=== PATIENT | female | born 1955 | race American Indian/Alaskan Native ===

== ENCOUNTER 2018-01-26 16:44 | Inpatient (IN) | payer MEDICARE ==
[2018-01-25 17:01] VITALS: PULSE 144; BMI 22.7
--- NOTE | 2018-01-26 16:59 | CP.PCM.CON ---
Addendum entered and electronically signed by Brionna Raphael DO 01/26/18 18:21 : Patient was g[place]me[place] [facility] - will folllow up the studies. Original Note: <Brionna Raphael - Last Filed: 01/26/18 17:47> History of Present Illness - History of Present Illness History of Present Illness: Critical Care Consult Note 62 year old female with PMHx of A-fib on warfarin, severe PAD, ESRD/anuric (HD TTS; L AVF; last dialysis Tuesday), hypothyroidism, Multiple Myeloma S/P chemotherapy and radiation therapy, left hallux infected ulcer with osteomyelitis with Serratia growing (01/16) and was put on Cefepime to complete 4- 6 weeks (discharged 01/20), she was admitted 01/25 with hemorrhagic shock and septic shock, given 3u PRBC, and 2U FFP, 2L bolus, s/p EGD 01/26 which showed ulcers, no active bleeding. Patient transferred to [facility] for further care and for dialysis. Currently the patient is on Levophed 8mcg/min. PMHx: A-fib on warfarin, severe PAD, ESRD/anuric (HD TTS; last dialysis ??), hypothyroidism, Multiple Myeloma S/P chemotherapy and radiation therapy, left hallux infected ulcer with osteomyelitis PSHx: portacath placement, L AV fistula, thoracic back surgery, cholecystectomy Allergies: IV contrast Social: Denies tobacco, alcohol, drugs Family Hx: denies PMD: Dr. Feng Custodial Engineer: Dr. Koenig Past Patient History - Infectious Disease Hx of Infectious Diseases: None - Past Social History Smoking Status: Never Smoked - CARDIAC Hx Atrial Fibrillation: Yes Hx Pacemaker: No Hx Peripheral Edema: Yes (ble +1 pitting dry leathery skin) Hx Peripheral Vascular Disease: Yes Other/Comment: left foot cool to touch - PULMONARY Other/Comment: pt had sleep study and was dx with sleep apnea by dr ding, could not tolerate cpap at home needs to follow up with dr ding but has not been feeling well - NEUROLOGICAL Hx Neurological Disorder: No - RENAL Date of Last Dialysis Treatment: 01/24/18 Hx Renal Failure: Yes - ENDOCRINE/METABOLIC Hx Endocrine Disorders: No - HEMATOLOGICAL/ONCOLOGICAL Hx Cancer: Yes Other/Comment: myeloma, osteomyelitis - INTEGUMENTARY Hx Dermatological Problems: Yes Other/Comment: ble discolored +1 pitting edema leathery skin, generalized dry flakey skin over body, dry skin to buttocks no openings, left foot toes ardry flakey skin both feete dry hard 1/2 nail missing from great toe, closed blister to top of foot, ischemic ulceration to left foot, painful, dry skin and toes r ft - MUSCULOSKELETAL/RHEUMATOLOGICAL Hx Falls: No - GASTROINTESTINAL Hx Gastrointestinal Disorders: Yes (weight loss poor appetite) - GENITOURINARY/GYNECOLOGICAL Hx Genitourinary Disorders: Yes (gangrenous cystitis) - PSYCHIATRIC Hx Anxiety: Yes Hx Emotional Abuse: No Hx Physical Abuse: No Hx Substance Use: No - SURGICAL HISTORY Hx Cholecystectomy: Yes (2007) Other/Comment: left arm av fistula, r arm port in and out post chemo when dx with multiple myeloma, angiogram rle 12/27/17 dr dilan lainez, fistulagram - ANESTHESIA Hx Anesthesia Reactions: Yes (HIGH TOLERANCE) Hx Malignant Hyperthermia: No Meds Allergies/Adverse Reactions: Allergies Allergy/AdvReac Type Severity Reaction Status Date / Time IV CONTRAST Allergy RASH Uncoded 01/16/18 07:23 Physical Exam - Constitutional Appears: Chronically Ill - Head Exam Head Exam: ATRAUMATIC, NORMAL INSPECTION, NORMOCEPHALIC - Eye Exam Eye Exam: EOMI, Normal appearance, PERRL Pupil Exam: NORMAL ACCOMODATION - ENT Exam ENT Exam: Mucous Membranes Dry - Respiratory Exam Respiratory Exam: Decreased Breath Sounds - Cardiovascular Exam Cardiovascular Exam: Tachycardia, Irregular Rhythm - GI/Abdominal Exam GI & Abdominal Exam: Normal Bowel Sounds, Soft. absent: Distended, Tenderness - Rectal Exam Rectal Exam: Deferred - Extremities Exam Extremities exam: Positive for: pedal pulses present. Negative for: pedal edema , tenderness Additional comments: wound on LLE; L AV fistula + thrill - Back Exam Back exam: NORMAL INSPECTION - Neurological Exam Neurological exam: Alert, CN II-XII Intact, Oriented x3 - Psychiatric Exam Psychiatric exam: Normal Affect, Normal Mood - Skin Skin Exam: Dry, Intact, Normal Color, Warm Assessment & Plan - Assessment and Plan (Free Text) Assessment: 62 year old female with PMHx of A-fib on warfarin, severe PAD, ESRD/anuric (HD TTS; last dialysis Tuesday), hypothyroidism, Multiple Myeloma S/P chemotherapy and radiation therapy, left hallux infected ulcer with osteomyelitis with Serratia growing (01/16) and was put on Cefepime to complete 4-6 weeks ( discharged 01/20), she was admitted 01/25 with hemorrhagic shock and septic shock, given 3u PRBC, and 2U FFP, 2L bolus, s/p EGD 01/26 which showed ulcers, no active bleeding. Patient transferred to [facility] for further care and for dialysis. Currently the patient is on Levophed 12mcg/min. Plan: Neuro: AAO x 3 Cardio: A: Hypotensive septic versus hemorrhagic shock - Levophed 12mcg/hr A: Atrial Fib - On Warfarin - HELD - ECHO 01/17: LVEF 70%, RV volume overload, mild LVH, Severe TR, moderate pulm HTN Pulm: A: Fluid Overload - Will be placed on BiPAP after dialysis GI: A: GIB - EGD done today at [facility]. Showed non-bleeding gastric and esophageal ulcers. No overt signs of bleeding seen on EGD. Will repeat EGD in a couple of days. Patient will need a colonoscopy before d/c. - Protonix Drip Renal: A: ESRD/anuric (HD TTS; L AVF; last dialysis Tuesday) Dr. Preciado consulted - Receiving dialysis now Endo: A: Hypothyroidism ID: A: Septic/ Hemorrhagic Shock A: Left hallux infected ulcer with Osteomyelitis - Serratia growing (01/16) and was put on Cefepime to complete 4-6 weeks ( discharged 01/20) - Resumed Cepime, Flagyl, and was given Vanco x1 by ID at [facility] Heme/ Onc: A: Anemia 2/2 acute blood loss - Transfused total 3u PRBC and 2U FFP - at [facility] - Continue to monitor A: Multiple Myeloma S/P chemotherapy and radiation therapy Vascular: A: Severe PAD Prophylaxis: - Protonix Drip - SCDs, VTE c/i 2/2 Osteo, PAD, and GI Bleed - PT/OT DW Brionna Patel DO, PGY-1 <Marcella Gibbs - Last Filed: 01/27/18 13:40> Meds - Medications Medications: Current Medications Ascorbic Acid (Vitamin C 500 Mg Tab) 500 mg PO DAILY [facility] Last Admin: 01/27/18 10:32 Dose: 500 mg Calcitriol (Rocaltrol) 0.25 mcg PO DAILY [facility] Last Admin: 01/27/18 10:32 Dose: 0.25 mcg Hydromorphone HCl (Dilaudid) 0.5 mg IVP Q4H PRN PRN Reason: Pain, severe (8-10) Cefepime HCl (Maxipime Iv 1 Gm Premix) 1 gm in 50 mls @ 100 mls/hr IVPB Q24H [facility]ON PRN Reason: Protocol Last Admin: 01/27/18 10:33 Dose: 100 mls/hr Norepinephrine Bitartrate 8 mg (/ Sodium Chloride) 258 mls @ 23.22 mls/hr IV .Q11H7M PRN; Protocol; 12 MCG/MIN PRN Reason: TITRATE PER MD ORDER Last Titration: 01/27/18 12:17 Dose: 14 mcg/min, 27.09 mls/hr Midodrine (Proamatine) 5 mg PO TID [facility] Last Admin: 01/27/18 10:32 Dose: 5 mg Pantoprazole Sodium (Protonix Inj) 40 mg IVP Q12H [facility] Last Admin: 01/27/18 05:55 Dose: 40 mg Sucralfate (Carafate Oral Susp) 1 gm PO TID [facility] Last Admin: 01/27/18 10:33 Dose: 1 gm Vitamin B Complex/Vit C/Folic Acid (Nephro-Sarah) 1 tab PO 0800 [facility] Results - Vital Signs Recent Vital Signs: Last Vital Signs Temp 97.7 F 01/27/18 12:00 Pulse 103 H 01/27/18 12:00 Resp 12 01/27/18 12:00 BP 85/44 L 01/27/18 12:00 Pulse Ox 96 01/27/18 12:00 - Labs Result Diagrams: 01/27/18 06:26 01/27/18 06:27 Labs: Laboratory Results - last 24 hr 01/26/18 01/26/18 01/27/18 21:27 21:27 06:26 WBC 25.5 H 20.5 H RBC 3.12 L 3.10 L Hgb 9.4 L 9.3 L Hct 27.7 L 27.8 L MCV 88.7 89.7 MCH 30.0 30.0 MCHC 33.8 33.5 RDW 15.3 H 15.9 H Plt Count 60 L 74 L MPV 9.7 9.5 Neut % (Auto) 90.7 H 87.7 H Lymph % (Auto) 4.4 L 5.5 L [place] % (Auto) 2.5 3.2 Eos % (Auto) 1.5 2.9 Baso % (Auto) 0.9 0.7 Neut # (Auto) 23.1 H 18.0 H Lymph # (Auto) 1.1 1.1 [place] # (Auto) 0.6 0.7 Eos # (Auto) 0.4 0.6 Baso # (Auto) 0.2 0.1 Neutrophils % (Manual) 90 H 90 H Band Neutrophils % 1 Lymphocytes % (Manual) 3 L 3 L Reactive Lymphs % 1 H Monocytes % (Manual) 3 4 Eosinophils % (Manual) 3 1 Basophils % (Manual) 1 Nucleated RBC % 1 H 1 H Toxic Granulation Present Platelet Estimate Decreased L Decreased L Large Platelets Present Hypochromasia (manual) Slight Slight Poikilocytosis (manual Slight Slight Anisocytosis (manual) Slight Slight Sodium 145 Potassium 3.4 L Chloride 102 Carbon Dioxide 28 Anion Gap 18 BUN 67 H Creatinine 2.6 H Est GFR ( Amer) 22 Est GFR (Non-Af Amer) 19 Random Glucose 89 Calcium 8.1 L Phosphorus 2.1 L Magnesium 1.9 Total Bilirubin 1.1 AST 30 ALT 44 Alkaline Phosphatase 151 H D Total Protein 5.9 L Albumin 2.9 L Globulin 3.0 Albumin/Globulin Ratio 0.9 L 15/18 06:27 WBC RBC Hgb Hct MCV MCH MCHC RDW Plt Count MPV Neut % (Auto) Lymph % (Auto) [place] % (Auto) Eos % (Auto) Baso % (Auto) Neut # (Auto) Lymph # (Auto) [place] # (Auto) Eos # (Auto) Baso # (Auto) Neutrophils % (Manual) Band Neutrophils % Lymphocytes % (Manual) Reactive Lymphs % Monocytes % (Manual) Eosinophils % (Manual) Basophils % (Manual) Nucleated RBC % Toxic Granulation Platelet Estimate Large Platelets Hypochromasia (manual) Poikilocytosis (manual Anisocytosis (manual) Sodium 144 Potassium 3.9 Chloride 103 Carbon Dioxide 29 Anion Gap 16 BUN 83 H Creatinine 3.4 H Est GFR ( Amer) 17 Est GFR (Non-Af Amer) 14 Random Glucose 84 Calcium 8.2 L Phosphorus 3.1 Magnesium 1.9 Total Bilirubin 1.1 AST 32 ALT 42 Alkaline Phosphatase 137 H Total Protein 5.8 L Albumin 2.9 L Globulin 3.0 Albumin/Globulin Ratio 1.0 Assessment & Plan - Assessment and Plan (Free Text) Plan: PAtient seen and examined at bedside. patietn dx with left foot soft tissue infection (suspect s/p debridement) being transferred from [facility] with dx of pulmonary congestion s/p multiple units of blood transfusion requiring HD (not available at [facility]). -COntinue pressors to keep MAP >65 -continue broad spectrum abx, continue as per ID (add vanco and gentamycin (on high dose pressors) -h/o Gi bleed: no active bleeding -continue protonix IV -Patient remains in shock requiring norepi - Date & Time Date: 01/26/18 Time: 19:00
[2018-01-26] MEDS ORDERED: Pantoprazole 80 MG in Sodium Chloride 0.9% 100 ML IVP SCH (17:15)
[2018-01-26] MEDS: Sucralfate 1 gm/10 ml Oral Susp UD PO SCH (18:48)
[2018-01-26] MEDS ORDERED: DiphenhydrAMINE 50 mg/ml Inj IVP STA (19:04)
[2018-01-26 21:30] LABS: EOS # 0.4 K/uL (0.0-0.7); HEMOGLOBIN 9.4 g/dL (11.0-16.0); NRBC % 0.6 % (0.0-2.0)
[2018-01-26 21:35] LABS: BASO # 0.2 K/uL (0.0-0.2); BASO % 0.9 % (0.0-2.0); EOS % 1.5 % (0.0-4.0); LYMPH # 1.1 K/uL (1.0-4.3); LYMPH % 4.4 % (20.0-40.0); MEAN CELL VOLUME 88.7 fL (81.0-99.0); MEAN CORPUSCULAR HGB CONC 33.8 g/dL (33.0-37.0); MEAN PLATELET VOLUME 9.7 fL (7.2-11.7); MONO # 0.6 K/uL (0.0-0.8); MONO % 2.5 % (0.0-10.0); NEUT # 23.1 K/uL (1.8-7.0); NEUT % 90.7 % (50.0-75.0); RBC 3.12 Mil/uL (3.80-5.20); RED CELL DISTRIBUTION WIDTH 15.3 % (11.5-14.5); WHITE BLOOD COUNT 25.5 K/uL (4.8-10.8)
[2018-01-26 21:37] LABS: PLATELET COUNT 60 K/uL (130-400)
[2018-01-26 21:43] LABS: ALB/GLOB RATIO 0.9 (1.0-2.1); ALBUMIN 2.9 g/dL (3.5-5.0); CALCIUM 8.1 mg/dl (8.6-10.4)
[2018-01-26] MEDS: metroNIDAZOLE IV 500 mg/100 ml 500 MG/100 ML BAG IVPB SCH (21:45)
[2018-01-26 21:52] LABS: ANISOCYTOSIS SLIGHT; EOSINOPHIL 3 % (0-4); HYPOCHROMIC SLIGHT; LARGE PLATELETS PRESENT; LYMPHOCYTE 3 % (20-40); MONOCYTE 3 % (0-10); NEUTROPHIL 90 % (50-75); NUCLEATED RED BLOOD CELL 1 % (0-0); PLATELET ESTIMATE DECREASED (NORMAL); POIKILOCYTOSIS SLIGHT; REACTIVE LYMPHOCYTES 1 % (0-0); TOTAL CELLS COUNTED 100
[2018-01-26] MEDS ORDERED: HYDROmorphone 0.5 mg/0.5 ml ISec IVP STA (23:43)
--- NOTE | 2018-01-27 04:32 | CON ---
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 The patient just discharged last week to [facility] after being found to have left hallux osteomyelitis. The patient had been mildly hypotensive during that admission as well and was placed on Midodrine. The patient reports not eating well lately; not able to give thorough history as she is very lethargic. The patient in [place] was admitted initially to ICU, given 3 units of PRBC, 3 units of FFP, 2 liters of normal saline bolus, and put on Levophed drip, currently running at 12 mcg to stabilize her. The patient also had urgent EGD done this morning which shows nonbleeding esophageal and gastric ulcers. PAST MEDICAL HISTORY: As above. SOCIAL HISTORY: Denies tobacco use. FAMILY HISTORY: Denies per record. REVIEW OF SYSTEMS: Limited as the patient is lethargic; HEENT: Reports some difficulty swallowing. CONSTITUTIONAL: Not eating much lately. RESPIRATORY: Previously prescribed CPAP but has not been adherent to it, unable to tolerate it reportedly. CARDIOVASCULAR: AFib with RVR on previous admission, placed on verapamil as well as Midodrine to maintain blood pressure. GI: As per HPI. : Anuric. MUSCULOSKELETAL: Denies any aches or pains. SKIN: Soft tissue. EXTREMITIES: The patient with left foot osteomyelitis, currently on 4 to 6 weeks of IV antibiotics. PHYSICAL EXAMINATION: VITAL SIGNS: This evening, blood pressure 197/52, heart rate 104, respirations 12, temperature 97.5, O2 saturation 96% on 3 liters O2 via nasal cannula. GENERAL: No distress, but lethargic. HEENT: Moist mucous membranes, nonicteric. RESPIRATORY: Extensive bilateral inspiratory rales. No respiratory distress. CARDIOVASCULAR: S1 and S2 normal. No murmurs, no gallops, no rubs. GI: Abdomen soft, nontender, nondistended. : No bladder distention. EXTREMITIES: 1+ bilateral lower leg edema. SKIN: Warm. No cyanosis. NEURO: No resting tremor. PSYCHIATRIC: Not agitated. LABORATORY DATA: This morning CBC; WBC 25.7, hemoglobin 9.8 improved from 7.6 earlier in the morning, hematocrit 29.3, platelets 100. Chemistry panel; sodium 144, potassium 4.7, chloride 104, bicarb 24, BUN 127, creatinine 4.6, glucose 93, calcium 7.9, AST 25, ALT 40, albumin 2.3. ProBNP 138,000. ABG this morning, pH 7.22, PCO2 62. Chest x-ray showing bilateral haziness. ASSESSMENT AND PLAN: 1. End stage renal disease on hemodialysis, relatively stable electrolyte status; however, appears volume overloaded by chest x-ray despite being hypotensive and on Levophed; we will dialyze for both clearance and ultrafiltration. 2. Congestive heart failure exacerbation, acute decompensated congestive heart failure; the patient with normal systolic function on previous echo done this last week but showed right ventricular volume overload; question about patient being in cardiogenic shock, although left ventricular function was normal, recommend cardiology eval. -Attempting ultrafiltration carefully with goal of 1.5 liters over 3 hours. 3. Shock, likely septic shock but RV volume overload recently as mentioned above; -we will recommend to continue on Levophed, to be titrated upward as needed to allow for UF on HD. 4. Acute Hypoxemic resp failure - Stable FIO2 requirement, see above; Critical care time > 35 minutes Agustín Preciado MD MTDD
[2018-01-27] MEDS: metroNIDAZOLE IV 500 mg/100 ml 500 MG/100 ML BAG IVPB SCH (05:55)
[2018-01-27 06:32] LABS: BASO # 0.1 K/uL (0.0-0.2); BASO % 0.7 % (0.0-2.0); EOS # 0.6 K/uL (0.0-0.7); EOS % 2.9 % (0.0-4.0); HEMOGLOBIN 9.3 g/dL (11.0-16.0); LYMPH # 1.1 K/uL (1.0-4.3); LYMPH % 5.5 % (20.0-40.0); MEAN CELL VOLUME 89.7 fL (81.0-99.0); MEAN CORPUSCULAR HGB CONC 33.5 g/dL (33.0-37.0); MEAN PLATELET VOLUME 9.5 fL (7.2-11.7); MONO # 0.7 K/uL (0.0-0.8); MONO % 3.2 % (0.0-10.0); NEUT % 87.7 % (50.0-75.0); NRBC % 0.8 % (0.0-2.0); PLATELET COUNT 74 K/uL (130-400); RED CELL DISTRIBUTION WIDTH 15.9 % (11.5-14.5); WHITE BLOOD COUNT 20.5 K/uL (4.8-10.8)
[2018-01-27 06:55] LABS: ALBUMIN 2.9 g/dL (3.5-5.0); CALCIUM 8.2 mg/dl (8.6-10.4)
[2018-01-27 08:29] LABS: BANDS 1 % (0-2); BASOPHIL 1 % (0-2); EOSINOPHIL 1 % (0-4); LYMPHOCYTE 3 % (20-40); MONOCYTE 4 % (0-10); NEUTROPHIL 90 % (50-75); NUCLEATED RED BLOOD CELL 1 % (0-0); TOTAL CELLS COUNTED 100
[2018-01-27 08:30] LABS: ANISOCYTOSIS SLIGHT; HYPOCHROMIC SLIGHT; PLATELET ESTIMATE DECREASED (NORMAL); POIKILOCYTOSIS SLIGHT; TOXIC GRANULATION PRESENT
[2018-01-27] MEDS ORDERED: Vancomycin 1 gm/NS 200 ml 1 GM/200 ML BAG IVPB STA (09:39)
[2018-01-27] MEDS ORDERED: SODIUM CHLORIDE 0.9% IVPB STA (09:43)
[2018-01-27] MEDS ORDERED: GENTAMICIN IVPB STA (09:43)
[2018-01-27] MEDS: Sucralfate 1 gm/10 ml Oral Susp UD PO SCH ×3 (10:33→17:52)
[2018-01-27] MEDS: Cefepime IV 1 gm in Dextrose 1 GM/50 ML BAG IVPB SCH (10:33)
--- NOTE | 2018-01-27 11:07 | RAD ---
HISTORY: s/p dialysis COMPARISON: 01/26/2018 at [facility] FINDINGS: LUNGS: Diffuse bilateral opacity suspicious for pulmonary edema. This represents interval change from the examination of the previous day performed at [facility]. PLEURA: O bilateral pleural effusion. No pneumothorax. Right apical pleural thickening. Nonspecific. This may represent pleural fluid or pleural fibrosis or possible neoplasm. There is some pleural calcification along edge of this pleural thickening at least at its superior extent. Significance unclear. . CARDIOVASCULAR: Normal heart size. Right subclavian central venous catheter. OSSEOUS STRUCTURES: Thoracolumbar spinal fixation. VISUALIZED UPPER ABDOMEN: Normal. OTHER FINDINGS: None. IMPRESSION: Diffuse bilateral pulmonary opacity with small bilateral pleural effusion. Right apical pleural thickening with calcification. Possible pulmonary edema.
--- NOTE | 2018-01-27 12:04 | CP.PCM.PN ---
Subjective - Date & Time of Evaluation Date of Evaluation: 01/27/18 Time of Evaluation: 12:00 - Subjective Subjective: Nephrology Consultation Note covering for Dr Preciado Assessment: Stable Pulmonary edema/fluid overload sepsis with shock severe TR with pulmonary HTN End stage renal disease (N18.6) dependence on hemodialysis (Z99.2) (TTS) via AVF Anemia (D64.9), Hyperphosphatemia (E83.39), Secondary Hyperparathyroidism (E21.1 ), HTN (I12.0) hx of multiple myeloma, osteomyelitis of toe, GI bleed, thrombocytopenia, PVD Plan: Will plan for isolated UF today as ordered. Continue with Nephrovite 1 tab/day. PRBC as needed for anemia. consider MARGRET with dialysis as last Hb 9.3 Continue with phos binders, check phos level continue with calcitriol BP control with meds as ordered. Patient not on RAAS mike as BP low side. pt on midodrine Glycemic control, Dialysis consistent diet Further work up/management as per primary team Dose meds/antibiotics (if needed) for ESRD status. Avoid fleets enema/magnesium based laxatives. Thanks for allowing me to participate in care of your patient. Please call if any Qs. d/w ICU team. Dr Preciado will follow from tomorrow Dr Osman Meza Office: [phone] Subjective: Noted events overnight. Patients c.o leg pains Denies chest pain, palpitation, shortness of breath, leg swelling. All other negative Physical Examination: General Appearance: uncomfortable, in no acute respiratory distress, co- operative . Vitals reviewed and noted as below Head; Atraumatic, normocephalic ENT: no ulcers no thrush. Tongue is midline. Oropharynx: no rash or ulcers. EYES: Pupils are equal, round and reactive to light accommodation. Eye muscles and extraocular movement intact. Sclera is anicteric. Neck; supple no lymphadenopathy, no thyromegaly or bruit Lungs: Normal respiratory rate/effort. Breath sounds bilateral decreased with crackles Heart: Increased rate. s1s2 normal. No rub or gallop. A fib Extremities: no edema. No varicose veins Neurological: Patient is alert, awake and oriented to person, place and time. No focal deficit. Strength bilateral appropriate and equal Skin: Warm and dry. Normal turgor. No rash. Palpitation: Normal elasticity for age Abdomen: Abdomen is soft. Bowel sounds +. There is no abdominal tenderness, no guarding/rigidity or organomegaly Psych: limited insight and flat affect/mood MSK: no joint tenderness or swelling. Digits and nails normal, no deformity : kidney or bladder not palpable Access: AVF Labs/imaging reviewed. Past medical history, past surgical history, family history, social history, allergy reviewed and noted as below Family Hx: no hx of CKD. Non contributory Objective - Vital Signs/Intake and Output Vital Signs (last 24 hours): Temp Pulse Resp BP Pulse Ox 97.5 F L 118 H 19 86/42 L 94 L 01/27/18 08:00 01/27/18 11:06 01/27/18 11:06 01/27/18 11:06 01/27/18 11:01 Intake and Output: 01/27/18 01/27/18 06:59 18:59 Intake Total 798.2 515.3 Output Total 0 Balance 798.2 515.3 - Medications Medications: Current Medications Ascorbic Acid (Vitamin C 500 Mg Tab) 500 mg PO DAILY [facility] Last Admin: 01/27/18 10:32 Dose: 500 mg Calcitriol (Rocaltrol) 0.25 mcg PO DAILY [facility] Last Admin: 01/27/18 10:32 Dose: 0.25 mcg Hydromorphone HCl (Dilaudid) 0.5 mg IVP Q4H PRN PRN Reason: Pain, severe (8-10) Cefepime HCl (Maxipime Iv 1 Gm Premix) 1 gm in 50 mls @ 100 mls/hr IVPB Q24H [facility] PRN Reason: Protocol Last Admin: 01/27/18 10:33 Dose: 100 mls/hr Norepinephrine Bitartrate 8 mg (/ Sodium Chloride) 258 mls @ 23.22 mls/hr IV .Q11H7M PRN; Protocol; 12 MCG/MIN PRN Reason: TITRATE PER MD ORDER Last Admin: 01/27/18 06:25 Dose: 12 mcg/min, 23.22 mls/hr Midodrine (Proamatine) 5 mg PO TID [facility] Last Admin: 01/27/18 10:32 Dose: 5 mg Pantoprazole Sodium (Protonix Inj) 40 mg IVP Q12H [facility] Last Admin: 01/27/18 05:55 Dose: 40 mg Sucralfate (Carafate Oral Susp) 1 gm PO TID [facility] Last Admin: 01/27/18 10:33 Dose: 1 gm Vitamin B Complex/Vit C/Folic Acid (Nephro-Sarah) 1 tab PO 0800 [facility] - Labs Labs: 01/27/18 06:26 01/27/18 06:27
[2018-01-27] MEDS ORDERED: DiphenhydrAMINE 50 mg/ml Inj IVP ONE ×2 (12:15→14:00)
--- NOTE | 2018-01-27 13:07 | CP.PCM.CON ---
History of Present Illness - History of Present Illness History of Present Illness: SURGERY CONSULT NOTE FOR DR. MCKINLEY 62F presents to [facility] after being transferred from [facility] [place] urgent [place]. Vascular surgery consulted for left foot wound. Patient is currently in shock and is on one pressor. She is awake, not intubated but also not totally alert. She does not give a good history. She states she got the wound after falling at a store and the wound was not able to heal well since. States it occurred a long time ago. She admits to pain at the site of the wound. PMH:A-fib on coumadin, severe, PAD, ESRD (Anuric), hypothyroidism, Multiple myeloma and has received chemo and radiation PSH: Portacath placement, L AV fistula, cholecystectomy, Back surgery Allergies: IV contrast Past Patient History - Infectious Disease Hx of Infectious Diseases: None - Past Medical History & Family History Past Medical History?: Yes - Past Social History Smoking Status: Never Smoked - CARDIAC Hx Atrial Fibrillation: Yes Hx Pacemaker: No Hx Peripheral Edema: Yes (ble +1 pitting dry leathery skin) Hx Peripheral Vascular Disease: Yes Other/Comment: left foot cool to touch - PULMONARY Other/Comment: pt had sleep study and was dx with sleep apnea by dr ding, could not tolerate cpap at home needs to follow up with dr ding but has not been feeling well - NEUROLOGICAL Hx Neurological Disorder: No - RENAL Date of Last Dialysis Treatment: 01/24/18 Hx Renal Failure: Yes - ENDOCRINE/METABOLIC Hx Endocrine Disorders: No - HEMATOLOGICAL/ONCOLOGICAL Hx Cancer: Yes Other/Comment: myeloma, osteomyelitis - INTEGUMENTARY Hx Dermatological Problems: Yes Other/Comment: ble discolored +1 pitting edema leathery skin, generalized dry flakey skin over body, dry skin to buttocks no openings, left foot toes ardry flakey skin both feete dry hard 1/2 nail missing from great toe, closed blister to top of foot, ischemic ulceration to left foot, painful, dry skin and toes r ft - MUSCULOSKELETAL/RHEUMATOLOGICAL Hx Falls: No - GASTROINTESTINAL Hx Gastrointestinal Disorders: Yes (weight loss poor appetite) - GENITOURINARY/GYNECOLOGICAL Hx Genitourinary Disorders: Yes (gangrenous cystitis) - PSYCHIATRIC Hx Anxiety: Yes Hx Emotional Abuse: No Hx Physical Abuse: No Hx Substance Use: No - SURGICAL HISTORY Hx Cholecystectomy: Yes (2007) Other/Comment: left arm av fistula, r arm port in and out post chemo when dx with multiple myeloma, angiogram rle 12/27/17 dr dilan lainez, fistulagram - ANESTHESIA Hx Anesthesia Reactions: Yes (HIGH TOLERANCE) Hx Malignant Hyperthermia: No Meds Allergies/Adverse Reactions: Allergies Allergy/AdvReac Type Severity Reaction Status Date / Time IV CONTRAST Allergy RASH Uncoded 01/16/18 07:23 - Medications Medications: Current Medications Ascorbic Acid (Vitamin C 500 Mg Tab) 500 mg PO DAILY [facility] Last Admin: 01/27/18 10:32 Dose: 500 mg Calcitriol (Rocaltrol) 0.25 mcg PO DAILY [facility] Last Admin: 01/27/18 10:32 Dose: 0.25 mcg Hydromorphone HCl (Dilaudid) 0.5 mg IVP Q4H PRN PRN Reason: Pain, severe (8-10) Cefepime HCl (Maxipime Iv 1 Gm Premix) 1 gm in 50 mls @ 100 mls/hr IVPB Q24H KEYON PRN Reason: Protocol Last Admin: 01/27/18 10:33 Dose: 100 mls/hr Norepinephrine Bitartrate 8 mg (/ Sodium Chloride) 258 mls @ 23.22 mls/hr IV .Q11H7M PRN; Protocol; 12 MCG/MIN PRN Reason: TITRATE PER MD ORDER Last Titration: 01/27/18 12:17 Dose: 14 mcg/min, 27.09 mls/hr Midodrine (Proamatine) 5 mg PO TID [facility] Last Admin: 01/27/18 10:32 Dose: 5 mg Pantoprazole Sodium (Protonix Inj) 40 mg IVP Q12H [facility] Last Admin: 01/27/18 05:55 Dose: 40 mg Sucralfate (Carafate Oral Susp) 1 gm PO TID [facility] Last Admin: 01/27/18 10:33 Dose: 1 gm Vitamin B Complex/Vit C/Folic Acid (Nephro-Sarah) 1 tab PO 0800 [facility] Physical Exam - Constitutional Appears: Non-toxic, No Acute Distress, Confused - Eye Exam Eye Exam: EOMI, PERRL - Respiratory Exam Respiratory Exam: Clear to Auscultation Bilateral, NORMAL BREATHING PATTERN - Cardiovascular Exam Cardiovascular Exam: Irregular Rhythm, +S1, +S2 - GI/Abdominal Exam GI & Abdominal Exam: Soft. 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, oozing serosang fluid Patient has sensation and motor on both feet dopplerable signals DP/PT bilaterally Results - Vital Signs Recent Vital Signs: Last Vital Signs Temp 97.7 F 01/27/18 12:00 Pulse 103 H 01/27/18 12:00 Resp 12 01/27/18 12:00 BP 85/44 L 01/27/18 12:00 Pulse Ox 96 01/27/18 12:00 - Labs Result Diagrams: 01/27/18 06:26 01/27/18 06:27 Labs: Laboratory Results - last 24 hr 01/26/18 01/26/18 01/27/18 21:27 21:27 06:26 WBC 25.5 H 20.5 H RBC 3.12 L 3.10 L Hgb 9.4 L 9.3 L Hct 27.7 L 27.8 L MCV 88.7 89.7 MCH 30.0 30.0 MCHC 33.8 33.5 RDW 15.3 H 15.9 H Plt Count 60 L 74 L MPV 9.7 9.5 Neut % (Auto) 90.7 H 87.7 H Lymph % (Auto) 4.4 L 5.5 L Mclean % (Auto) 2.5 3.2 Eos % (Auto) 1.5 2.9 Baso % (Auto) 0.9 0.7 Neut # (Auto) 23.1 H 18.0 H Lymph # (Auto) 1.1 1.1 Mclean # (Auto) 0.6 0.7 Eos # (Auto) 0.4 0.6 Baso # (Auto) 0.2 0.1 Neutrophils % (Manual) 90 H 90 H Band Neutrophils % 1 Lymphocytes % (Manual) 3 L 3 L Reactive Lymphs % 1 H Monocytes % (Manual) 3 4 Eosinophils % (Manual) 3 1 Basophils % (Manual) 1 Nucleated RBC % 1 H 1 H Toxic Granulation Present Platelet Estimate Decreased L Decreased L Large Platelets Present Hypochromasia (manual) Slight Slight Poikilocytosis (manual Slight Slight Anisocytosis (manual) Slight Slight Sodium 145 Potassium 3.4 L Chloride 102 Carbon Dioxide 28 Anion Gap 18 BUN 67 H Creatinine 2.6 H Est GFR ( Amer) 22 Est GFR (Non-Af Amer) 19 Random Glucose 89 Calcium 8.1 L Phosphorus 2.1 L Magnesium 1.9 Total Bilirubin 1.1 AST 30 ALT 44 Alkaline Phosphatase 151 H D Total Protein 5.9 L Albumin 2.9 L Globulin 3.0 Albumin/Globulin Ratio 0.9 L 15/18 06:27 WBC RBC Hgb Hct MCV MCH MCHC RDW Plt Count MPV Neut % (Auto) Lymph % (Auto) Mclean % (Auto) Eos % (Auto) Baso % (Auto) Neut # (Auto) Lymph # (Auto) Mclean # (Auto) Eos # (Auto) Baso # (Auto) Neutrophils % (Manual) Band Neutrophils % Lymphocytes % (Manual) Reactive Lymphs % Monocytes % (Manual) Eosinophils % (Manual) Basophils % (Manual) Nucleated RBC % Toxic Granulation Platelet Estimate Large Platelets Hypochromasia (manual) Poikilocytosis (manual Anisocytosis (manual) Sodium 144 Potassium 3.9 Chloride 103 Carbon Dioxide 29 Anion Gap 16 BUN 83 H Creatinine 3.4 H Est GFR ( Amer) 17 Est GFR (Non-Af Amer) 14 Random Glucose 84 Calcium 8.2 L Phosphorus 3.1 Magnesium 1.9 Total Bilirubin 1.1 AST 32 ALT 42 Alkaline Phosphatase 137 H Total Protein 5.8 L Albumin 2.9 L Globulin 3.0 Albumin/Globulin Ratio 1.0 Assessment & Plan - Assessment and Plan (Free Text) Assessment: 62F with left feet wound and PVD Plan: - HD - Wound care - Drsessing chnages - Arterial PVRs ordered - Angio done in [place] in December revealed non occlusions of vessels in lower extremity Further recs discuss with Dr. Dena Valles, PGY2
[2018-01-27] MEDS: HYDROmorphone 0.5 mg/0.5 ml ISec IVP PRN ×2 (13:59→19:39)
--- NOTE | 2018-01-27 15:45 | CP.PCM.PN ---
Subjective - Date & Time of Evaluation Date of Evaluation: 01/27/18 Time of Evaluation: 15:44 - Subjective Subjective: most likely will need bka Objective - Vital Signs/Intake and Output Vital Signs (last 24 hours): Temp Pulse Resp BP Pulse Ox 97.7 F 113 H 11 L 92/57 L 97 01/27/18 14:15 01/27/18 15:17 01/27/18 15:17 01/27/18 15:30 01/27/18 15:17 Intake and Output: 01/27/18 01/27/18 06:59 18:59 Intake Total 798.2 777.8 Output Total 0 Balance 798.2 777.8 - Medications Medications: Current Medications Ascorbic Acid (Vitamin C 500 Mg Tab) 500 mg PO DAILY [facility] Last Admin: 01/27/18 10:32 Dose: 500 mg Calcitriol (Rocaltrol) 0.25 mcg PO DAILY [facility] Last Admin: 01/27/18 10:32 Dose: 0.25 mcg Hydromorphone HCl (Dilaudid) 0.5 mg IVP Q4H PRN PRN Reason: Pain, severe (8-10) Last Admin: 01/27/18 13:59 Dose: 0.5 mg Cefepime HCl (Maxipime Iv 1 Gm Premix) 1 gm in 50 mls @ 100 mls/hr IVPB Q24H KEYON PRN Reason: Protocol Last Admin: 01/27/18 10:33 Dose: 100 mls/hr Norepinephrine Bitartrate 8 mg (/ Sodium Chloride) 258 mls @ 23.22 mls/hr IV .Q11H7M PRN; Protocol; 12 MCG/MIN PRN Reason: TITRATE PER MD ORDER Last Titration: 01/27/18 12:17 Dose: 14 mcg/min, 27.09 mls/hr Midodrine (Proamatine) 5 mg PO TID [facility] Last Admin: 01/27/18 13:46 Dose: 5 mg Pantoprazole Sodium (Protonix Inj) 40 mg IVP Q12H [facility] Last Admin: 01/27/18 05:55 Dose: 40 mg Sucralfate (Carafate Oral Susp) 1 gm PO TID [facility] Last Admin: 01/27/18 13:46 Dose: 1 gm Vitamin B Complex/Vit C/Folic Acid (Nephro-Sarah) 1 tab PO 0800 [facility] - Labs Labs: 01/27/18 06:26 01/27/18 06:27
--- NOTE | 2018-01-27 16:41 | CP.CCUPN ---
<PanteraclaudiaBrionna - Last Filed: 01/27/18 16:38> CCU Subjective - Physician Review Subjective (Free Text): Patient was seen and examined at bedside. Patient is awake, oriented, yet not so alert. CCU Objective - Vital Signs / Intake & Output Vital Signs (Last 4 hours): Vital Signs Temp Pulse Pulse Resp BP BP Pulse Ox 01/27/18 16:14 97.2 F L 104 H 15 101/58 L 94 L 01/27/18 16:00 97.8 F 101 H 13 92/56 L 98 01/27/18 15:49 107 H 14 88/55 L 01/27/18 15:47 107 H 12 80/59 L 01/27/18 15:45 88/55 L 01/27/18 15:32 109 H 18 92/57 L 01/27/18 15:30 92/57 L 01/27/18 15:17 113 H 11 L 93/58 L 97 01/27/18 15:15 93/58 L 01/27/18 15:02 108 H 11 L 98/69 L 94 L 01/27/18 15:00 117 H 12 98/69 L 95 01/27/18 14:47 117 H 12 90/59 L 01/27/18 14:45 90/59 L 01/27/18 14:32 104 H 12 99/66 L 99 01/27/18 14:30 99/66 L 01/27/18 14:15 97.7 F 107 H 110 H 9 L 91/67 L 91/67 L 97 01/27/18 14:10 97.9 F 110 H 12 99/63 L 01/27/18 14:01 107 H 13 103/62 93 L 01/27/18 14:00 125 H 15 91 L 01/27/18 13:00 126 H 13 99/63 L 96 Intake and Output (Last 8hrs): Intake & Output 01/27/18 01/27/18 01/27/18 06:59 14:59 22:59 Intake Total 510.0 750.7 54.2 Output Total 0 Balance 510.0 750.7 54.2 Weight 156 lb 15.506 oz Intake: IV 230 108 Intake, IV Amount 280.0 542.7 54.2 Right Medial Port 100 350 Right Proximal Port 180.0 192.7 54.2 Internal Jugular Oral 100 0 Output: Urine 0 Urine, Voided 0 Other: # Voids Urine, Voided 0 0 # Bowel Movements 0 0 - Physical Exam Head: Positive for: Atraumatic, Normocephalic Pupils: Positive for: PERRL Extroacular Muscles: Positive for: EOMI Conjunctiva: Positive for: Normal Ears: Positive for: NORMAL TM Mouth: Positive for: Dry Neck: Positive for: Normal Range of Motion Respiratory/Chest: Positive for: Clear to Auscultation. Negative for: Respiratory Distress Cardiovascular: Positive for: Regular Rate and Rhythm Abdomen: Positive for: Normal Bowel Sounds. Negative for: Tenderness, Distention Upper Extremity: Positive for: Normal ROM, Neurovascularly Intact, Capillary Refill < 2s, Other (Left AVF ) Lower Extremity: Positive for: Other (left lower extremity wound on the dorsal aspect of the foot) Neurological: Positive for: GCS=15, CN II-XII Intact Skin: Positive for: Warm, Dry, Normal Color Psychiatric: Positive for: Oriented x 3 - Medications Active Medications: Active Medications Generic Name Dose Route Start Last Admin Trade Name Freq PRN Reason Stop Dose Admin Ascorbic Acid 500 mg 01/27/18 10:00 01/27/18 10:32 Vitamin C 500 Mg Tab PO 500 mg DAILY KEYON Administration Calcitriol 0.25 mcg 01/27/18 10:00 01/27/18 10:32 Rocaltrol PO 0.25 mcg DAILY KEYON Administration Hydromorphone HCl 0.5 mg 01/27/18 09:14 01/27/18 13:59 Dilaudid IVP 0.5 mg Q4H PRN Administration Pain, severe (8-10) Cefepime HCl 1 gm in 50 mls @ 100 mls/hr 01/27/18 10:00 01/27/18 10:33 Maxipime Iv 1 Gm Premix IVPB 100 mls/hr Q24H KEYON Administration Protocol Norepinephrine Bitartrate 8 mg 258 mls @ 23.22 mls/hr 01/26/18 17:46 12:17 / Sodium Chloride IV 14 mcg/min .Q11H7M PRN 27.09 mls/hr TITRATE PER MD ORDER Titration Protocol 12 MCG/MIN Midodrine 5 mg 01/26/18 18:00 01/27/18 13:46 Proamatine PO 5 mg TID KEYON Administration Pantoprazole Sodium 40 mg 01/26/18 17:30 01/27/18 05:55 Protonix Inj IVP 40 mg Q12H KEYON Administration Sucralfate 1 gm 01/26/18 18:00 01/27/18 13:46 Carafate Oral Susp PO 1 gm TID KEYON Administration Vitamin B Complex/Vit C/Folic Acid 1 tab 01/28/18 08:00 Nephro-Sarah PO 0800 [facility] - Patient Studies Lab Studies: Lab Studies 01/27/18 01/27/18 01/26/18 Range/Units 06:27 06:26 21:27 WBC 20.5 H (4.8-10.8) K/uL RBC 3.10 L (3.80-5.20) Mil/uL Hgb 9.3 L (11.0-16.0) g/dL Hct 27.8 L (34.0-47.0) % MCV 89.7 (81.0-99.0) fL MCH 30.0 (27.0-31.0) pg MCHC 33.5 (33.0-37.0) g/dL RDW 15.9 H (11.5-14.5) % Plt Count 74 L (130-400) K/uL MPV 9.5 (7.2-11.7) fL Neut % (Auto) 87.7 H (50.0-75.0) % Lymph % (Auto) 5.5 L (20.0-40.0) % Tompkins % (Auto) 3.2 (0.0-10.0) % Eos % (Auto) 2.9 (0.0-4.0) % Baso % (Auto) 0.7 (0.0-2.0) % Neut # (Auto) 18.0 H (1.8-7.0) K/uL Lymph # (Auto) 1.1 (1.0-4.3) K/uL Tompkins # (Auto) 0.7 (0.0-0.8) K/uL Eos # (Auto) 0.6 (0.0-0.7) K/uL Baso # (Auto) 0.1 (0.0-0.2) K/uL Neutrophils % (Manual) 90 H (50-75) % Band Neutrophils % 1 (0-2) % Lymphocytes % (Manual) 3 L (20-40) % Reactive Lymphs % (0-0) % Monocytes % (Manual) 4 (0-10) % Eosinophils % (Manual) 1 (0-4) % Basophils % (Manual) 1 (0-2) % Nucleated RBC % 1 H (0-0) % Toxic Granulation Present Platelet Estimate Decreased L (NORMAL) Large Platelets Hypochromasia (manual) Slight Poikilocytosis (manual Slight Anisocytosis (manual) Slight Sodium 144 145 (132-148) mmol/L Potassium 3.9 3.4 L (3.6-5.2) mmol/L Chloride 103 102 (98-107) mmol/L Carbon Dioxide 29 28 (22-30) mmol/L Anion Gap 16 18 (10-20) BUN 83 H 67 H (7-17) mg/dL Creatinine 3.4 H 2.6 H (0.7-1.2) mg/dL Est GFR ( Amer) 17 22 Est GFR (Non-Af Amer) 14 19 Random Glucose 84 89 (65-105) mg/dL Calcium 8.2 L 8.1 L (8.6-10.4) mg/dl Phosphorus 3.1 2.1 L (2.5-4.5) mg/dL Magnesium 1.9 1.9 (1.6-2.3) mg/dL Total Bilirubin 1.1 1.1 (0.2-1.3) mg/dL AST 32 30 (14-36) U/L ALT 42 44 (9-52) U/L Alkaline Phosphatase 137 H 151 H D (38-126) U/L Total Protein 5.8 L 5.9 L (6.3-8.3) g/dL Albumin 2.9 L 2.9 L (3.5-5.0) g/dL Globulin 3.0 3.0 (2.2-3.9) gm/dL Albumin/Globulin Ratio 1.0 0.9 L (1.0-2.1) 01/26/18 Range/Units 21:27 WBC 25.5 H (4.8-10.8) K/uL RBC 3.12 L (3.80-5.20) Mil/uL Hgb 9.4 L (11.0-16.0) g/dL Hct 27.7 L (34.0-47.0) % MCV 88.7 (81.0-99.0) fL MCH 30.0 (27.0-31.0) pg MCHC 33.8 (33.0-37.0) g/dL RDW 15.3 H (11.5-14.5) % Plt Count 60 L (130-400) K/uL MPV 9.7 (7.2-11.7) fL Neut % (Auto) 90.7 H (50.0-75.0) % Lymph % (Auto) 4.4 L (20.0-40.0) % Tompkins % (Auto) 2.5 (0.0-10.0) % Eos % (Auto) 1.5 (0.0-4.0) % Baso % (Auto) 0.9 (0.0-2.0) % Neut # (Auto) 23.1 H (1.8-7.0) K/uL Lymph # (Auto) 1.1 (1.0-4.3) K/uL Tompkins # (Auto) 0.6 (0.0-0.8) K/uL Eos # (Auto) 0.4 (0.0-0.7) K/uL Baso # (Auto) 0.2 (0.0-0.2) K/uL Neutrophils % (Manual) 90 H (50-75) % Band Neutrophils % (0-2) % Lymphocytes % (Manual) 3 L (20-40) % Reactive Lymphs % 1 H (0-0) % Monocytes % (Manual) 3 (0-10) % Eosinophils % (Manual) 3 (0-4) % Basophils % (Manual) (0-2) % Nucleated RBC % 1 H (0-0) % Toxic Granulation Platelet Estimate Decreased L (NORMAL) Large Platelets Present Hypochromasia (manual) Slight Poikilocytosis (manual Slight Anisocytosis (manual) Slight Sodium (132-148) mmol/L Potassium (3.6-5.2) mmol/L Chloride (98-107) mmol/L Carbon Dioxide (22-30) mmol/L Anion Gap (10-20) BUN (7-17) mg/dL Creatinine (0.7-1.2) mg/dL Est GFR ( Amer) Est GFR (Non-Af Amer) Random Glucose (65-105) mg/dL Calcium (8.6-10.4) mg/dl Phosphorus (2.5-4.5) mg/dL Magnesium (1.6-2.3) mg/dL Total Bilirubin (0.2-1.3) mg/dL AST (14-36) U/L ALT (9-52) U/L Alkaline Phosphatase (38-126) U/L Total Protein (6.3-8.3) g/dL Albumin (3.5-5.0) g/dL Globulin (2.2-3.9) gm/dL Albumin/Globulin Ratio (1.0-2.1) Laboratory Results - last 24 hr 01/26/18 01/26/18 01/27/18 21:27 21:27 06:26 WBC 25.5 H 20.5 H RBC 3.12 L 3.10 L Hgb 9.4 L 9.3 L Hct 27.7 L 27.8 L MCV 88.7 89.7 MCH 30.0 30.0 MCHC 33.8 33.5 RDW 15.3 H 15.9 H Plt Count 60 L 74 L MPV 9.7 9.5 Neut % (Auto) 90.7 H 87.7 H Lymph % (Auto) 4.4 L 5.5 L Tompkins % (Auto) 2.5 3.2 Eos % (Auto) 1.5 2.9 Baso % (Auto) 0.9 0.7 Neut # (Auto) 23.1 H 18.0 H Lymph # (Auto) 1.1 1.1 Tompkins # (Auto) 0.6 0.7 Eos # (Auto) 0.4 0.6 Baso # (Auto) 0.2 0.1 Neutrophils % (Manual) 90 H 90 H Band Neutrophils % 1 Lymphocytes % (Manual) 3 L 3 L Reactive Lymphs % 1 H Monocytes % (Manual) 3 4 Eosinophils % (Manual) 3 1 Basophils % (Manual) 1 Nucleated RBC % 1 H 1 H Toxic Granulation Present Platelet Estimate Decreased L Decreased L Large Platelets Present Hypochromasia (manual) Slight Slight Poikilocytosis (manual Slight Slight Anisocytosis (manual) Slight Slight Sodium 145 Potassium 3.4 L Chloride 102 Carbon Dioxide 28 Anion Gap 18 BUN 67 H Creatinine 2.6 H Est GFR ( Amer) 22 Est GFR (Non-Af Amer) 19 Random Glucose 89 Calcium 8.1 L Phosphorus 2.1 L Magnesium 1.9 Total Bilirubin 1.1 AST 30 ALT 44 Alkaline Phosphatase 151 H D Total Protein 5.9 L Albumin 2.9 L Globulin 3.0 Albumin/Globulin Ratio 0.9 L 01/27/18 06:27 WBC RBC Hgb Hct MCV MCH MCHC RDW Plt Count MPV Neut % (Auto) Lymph % (Auto) Tompkins % (Auto) Eos % (Auto) Baso % (Auto) Neut # (Auto) Lymph # (Auto) Tompkins # (Auto) Eos # (Auto) Baso # (Auto) Neutrophils % (Manual) Band Neutrophils % Lymphocytes % (Manual) Reactive Lymphs % Monocytes % (Manual) Eosinophils % (Manual) Basophils % (Manual) Nucleated RBC % Toxic Granulation Platelet Estimate Large Platelets Hypochromasia (manual) Poikilocytosis (manual Anisocytosis (manual) Sodium 144 Potassium 3.9 Chloride 103 Carbon Dioxide 29 Anion Gap 16 BUN 83 H Creatinine 3.4 H Est GFR ( Amer) 17 Est GFR (Non-Af Amer) 14 Random Glucose 84 Calcium 8.2 L Phosphorus 3.1 Magnesium 1.9 Total Bilirubin 1.1 AST 32 ALT 42 Alkaline Phosphatase 137 H Total Protein 5.8 L Albumin 2.9 L Globulin 3.0 Albumin/Globulin Ratio 1.0 Critical Care Progress Note - Nutrition Nutrition: Nutrition Category Date Time Status Liquid Diet [DIET] Diets 01/27/18 Lunch Active Assessment/Plan - Assessment and Plan (Free Text) Assessment: 62 year old female with PMHx of A-fib on warfarin, severe PAD, ESRD/anuric (HD TTS; last dialysis Tuesday), hypothyroidism, Multiple Myeloma S/P chemotherapy and radiation therapy, left hallux infected ulcer with osteomyelitis with Serratia growing (01/16) and was put on Cefepime to complete 4-6 weeks ( discharged 01/20), she was admitted 01/25 with hemorrhagic shock and septic shock, given 3u PRBC, and 2U FFP, 2L bolus, s/p EGD 01/26 which showed ulcers, no active bleeding. Patient transferred to [facility] for further care and for dialysis. Currently the patient is on Levophed 14mcg/min. Plan: Neuro: AAO x 3 Cardio: A: Hypotensive septic versus hemorrhagic shock - Levophed drip - Midodrine TID A: Atrial Fib - On Warfarin - HELD - ECHO 01/17: LVEF 70%, RV volume overload, mild LVH, Severe TR, moderate pulm HTN Pulm: A: Fluid Overload - Will be placed on BiPAP after dialysis sessions GI: A: GIB - EGD done today at [facility]. Showed non-bleeding gastric and esophageal ulcers. No overt signs of bleeding seen on EGD. Will repeat EGD in a couple of days. Patient will need a colonoscopy before d/c. - Sucralfate TID, Protonix BID - CLD Renal: A: ESRD/anuric (HD TTS; L AVF; last dialysis Tuesday) Dr. Preciado consulted - Received dialysis 01/26, 01/27 Endo: A: Hypothyroidism ID: A: Septic/ Hemorrhagic Shock - BC 01/25 - drawn from [place] no growth to date A: Left hallux infected ulcer with Osteomyelitis ID Consulted - Dr. Szymanski Podiatry consulted Dr. Mcgee and Wound Care consulted - Serratia growing (01/16) and was put on Cefepime to complete 4-6 weeks ( discharged 01/20) - Resumed Cefepime, gave one dose Gentamycin and Vanco after dialysis - Repeat Wound culture pending Heme/ Onc: A: Anemia 2/2 acute blood loss - Transfused total 3u PRBC and 2U FFP - at [facility] - Continue to monitor A: Multiple Myeloma S/P chemotherapy and radiation therapy Vascular: A: Severe PVD Vascular Surgery consulted - Dr. 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 Prophylaxis: - Protonix BID - SCDs, VTE c/i 2/2 Osteo, PVD, and GI Bleed - PT/OT DW Brionna Patel DO, PGY-1 <Marcella Gibbs - Last Filed: 01/27/18 18:51> CCU Subjective - Physician Review Critical Care Time Spent (in minutes): 35 CCU Objective - Vital Signs / Intake & Output Vital Signs (Last 4 hours): Vital Signs Temp Pulse Pulse Resp BP BP Pulse Ox 01/27/18 18:00 109 H 15 100 01/27/18 17:58 105 H 15 97/58 L 96 01/27/18 17:50 97 H 19 94/48 L 95 01/27/18 17:00 95 H 12 01/27/18 16:58 107 H 11 L 94/48 L 01/27/18 16:48 92/53 L 01/27/18 16:47 98 H 19 01/27/18 16:44 116 H 01/27/18 16:32 101 H 10 L 97/64 L 01/27/18 16:17 100 H 10 L 89/63 L 01/27/18 16:15 97.2 F L 104 H 15 101/58 L 94 L 01/27/18 16:12 119 H 13 101/58 L 01/27/18 16:02 104 H 11 L 92/56 L 01/27/18 16:00 97.8 F 101 H 13 92/56 L 98 01/27/18 15:49 107 H 14 88/55 L 01/27/18 15:47 107 H 12 80/59 L 01/27/18 15:45 88/55 L 01/27/18 15:32 109 H 18 92/57 L 01/27/18 15:30 92/57 L 01/27/18 15:17 113 H 11 L 93/58 L 97 01/27/18 15:15 93/58 L 01/27/18 15:02 108 H 11 L 98/69 L 94 L 01/27/18 15:00 117 H 12 98/69 L 95 Intake and Output (Last 8hrs): Intake & Output 01/27/18 01/27/18 01/27/18 06:59 14:59 22:59 Intake Total 510.0 750.7 358.4 Output Total 0 1000 Balance 510.0 750.7 -641.6 Weight 156 lb 15.506 oz Intake: IV 230 108 150 Intake, IV Amount 280.0 542.7 108.4 Right Medial Port 100 350 Right Proximal Port 180.0 192.7 108.4 Internal Jugular Oral 100 100 Output: Drainage 1000 HD fluid removal 1000 Urine 0 Urine, Voided 0 Other: # Voids Urine, Voided 0 0 # Bowel Movements 0 0 - Medications Active Medications: Active Medications Generic Name Dose Route Start Last Admin Trade Name Freq PRN Reason Stop Dose Admin Ascorbic Acid 500 mg 01/27/18 10:00 01/27/18 10:32 Vitamin C 500 Mg Tab PO 500 mg DAILY KEYON Administration Calcitriol 0.25 mcg 01/27/18 10:00 01/27/18 10:32 Rocaltrol PO 0.25 mcg DAILY KEYON Administration Hydromorphone HCl 0.5 mg 01/27/18 09:14 01/27/18 13:59 Dilaudid IVP 0.5 mg Q4H PRN Administration Pain, severe (8-10) Cefepime HCl 1 gm in 50 mls @ 100 mls/hr 01/27/18 10:00 01/27/18 10:33 Maxipime Iv 1 Gm Premix IVPB 100 mls/hr Q24H KEYON Administration Protocol Norepinephrine Bitartrate 8 mg 258 mls @ 23.22 mls/hr 01/26/18 17:46 17:50 / Sodium Chloride IV 14 mcg/min .Q11H7M PRN 27.09 mls/hr TITRATE PER MD ORDER Administration Protocol 12 MCG/MIN Midodrine 5 mg 01/26/18 18:00 01/27/18 17:51 Proamatine PO 5 mg TID KEYON Administration Pantoprazole Sodium 40 mg 01/26/18 17:30 01/27/18 17:52 Protonix Inj IVP 40 mg Q12H KEYON Administration Sucralfate 1 gm 01/26/18 18:00 01/27/18 17:52 Carafate Oral Susp PO 1 gm TID KEYON Administration Vitamin B Complex/Vit C/Folic Acid 1 tab 01/28/18 08:00 Nephro-Sarah PO 0800 [facility] - Patient Studies Lab Studies: Lab Studies 01/27/18 01/27/18 01/26/18 Range/Units 06:27 06:26 21:27 WBC 20.5 H (4.8-10.8) K/uL RBC 3.10 L (3.80-5.20) Mil/uL Hgb 9.3 L (11.0-16.0) g/dL Hct 27.8 L (34.0-47.0) % MCV 89.7 (81.0-99.0) fL MCH 30.0 (27.0-31.0) pg MCHC 33.5 (33.0-37.0) g/dL RDW 15.9 H (11.5-14.5) % Plt Count 74 L (130-400) K/uL MPV 9.5 (7.2-11.7) fL Neut % (Auto) 87.7 H (50.0-75.0) % Lymph % (Auto) 5.5 L (20.0-40.0) % Tompkins % (Auto) 3.2 (0.0-10.0) % Eos % (Auto) 2.9 (0.0-4.0) % Baso % (Auto) 0.7 (0.0-2.0) % Neut # (Auto) 18.0 H (1.8-7.0) K/uL Lymph # (Auto) 1.1 (1.0-4.3) K/uL Tompkins # (Auto) 0.7 (0.0-0.8) K/uL Eos # (Auto) 0.6 (0.0-0.7) K/uL Baso # (Auto) 0.1 (0.0-0.2) K/uL Neutrophils % (Manual) 90 H (50-75) % Band Neutrophils % 1 (0-2) % Lymphocytes % (Manual) 3 L (20-40) % Reactive Lymphs % (0-0) % Monocytes % (Manual) 4 (0-10) % Eosinophils % (Manual) 1 (0-4) % Basophils % (Manual) 1 (0-2) % Nucleated RBC % 1 H (0-0) % Toxic Granulation Present Platelet Estimate Decreased L (NORMAL) Large Platelets Hypochromasia (manual) Slight Poikilocytosis (manual Slight Anisocytosis (manual) Slight Sodium 144 145 (132-148) mmol/L Potassium 3.9 3.4 L (3.6-5.2) mmol/L Chloride 103 102 (98-107) mmol/L Carbon Dioxide 29 28 (22-30) mmol/L Anion Gap 16 18 (10-20) BUN 83 H 67 H (7-17) mg/dL Creatinine 3.4 H 2.6 H (0.7-1.2) mg/dL Est GFR ( Amer) 17 22 Est GFR (Non-Af Amer) 14 19 Random Glucose 84 89 (65-105) mg/dL Calcium 8.2 L 8.1 L (8.6-10.4) mg/dl Phosphorus 3.1 2.1 L (2.5-4.5) mg/dL Magnesium 1.9 1.9 (1.6-2.3) mg/dL Total Bilirubin 1.1 1.1 (0.2-1.3) mg/dL AST 32 30 (14-36) U/L ALT 42 44 (9-52) U/L Alkaline Phosphatase 137 H 151 H D (38-126) U/L Total Protein 5.8 L 5.9 L (6.3-8.3) g/dL Albumin 2.9 L 2.9 L (3.5-5.0) g/dL Globulin 3.0 3.0 (2.2-3.9) gm/dL Albumin/Globulin Ratio 1.0 0.9 L (1.0-2.1) // Range/Units 21:27 WBC 25.5 H (4.8-10.8) K/uL RBC 3.12 L (3.80-5.20) Mil/uL Hgb 9.4 L (11.0-16.0) g/dL Hct 27.7 L (34.0-47.0) % MCV 88.7 (81.0-99.0) fL MCH 30.0 (27.0-31.0) pg MCHC 33.8 (33.0-37.0) g/dL RDW 15.3 H (11.5-14.5) % Plt Count 60 L (130-400) K/uL MPV 9.7 (7.2-11.7) fL Neut % (Auto) 90.7 H (50.0-75.0) % Lymph % (Auto) 4.4 L (20.0-40.0) % Tompkins % (Auto) 2.5 (0.0-10.0) % Eos % (Auto) 1.5 (0.0-4.0) % Baso % (Auto) 0.9 (0.0-2.0) % Neut # (Auto) 23.1 H (1.8-7.0) K/uL Lymph # (Auto) 1.1 (1.0-4.3) K/uL Tompkins # (Auto) 0.6 (0.0-0.8) K/uL Eos # (Auto) 0.4 (0.0-0.7) K/uL Baso # (Auto) 0.2 (0.0-0.2) K/uL Neutrophils % (Manual) 90 H (50-75) % Band Neutrophils % (0-2) % Lymphocytes % (Manual) 3 L (20-40) % Reactive Lymphs % 1 H (0-0) % Monocytes % (Manual) 3 (0-10) % Eosinophils % (Manual) 3 (0-4) % Basophils % (Manual) (0-2) % Nucleated RBC % 1 H (0-0) % Toxic Granulation Platelet Estimate Decreased L (NORMAL) Large Platelets Present Hypochromasia (manual) Slight Poikilocytosis (manual Slight Anisocytosis (manual) Slight Sodium (132-148) mmol/L Potassium (3.6-5.2) mmol/L Chloride (98-107) mmol/L Carbon Dioxide (22-30) mmol/L Anion Gap (10-20) BUN (7-17) mg/dL Creatinine (0.7-1.2) mg/dL Est GFR ( Amer) Est GFR (Non-Af Amer) Random Glucose (65-105) mg/dL Calcium (8.6-10.4) mg/dl Phosphorus (2.5-4.5) mg/dL Magnesium (1.6-2.3) mg/dL Total Bilirubin (0.2-1.3) mg/dL AST (14-36) U/L ALT (9-52) U/L Alkaline Phosphatase (38-126) U/L Total Protein (6.3-8.3) g/dL Albumin (3.5-5.0) g/dL Globulin (2.2-3.9) gm/dL Albumin/Globulin Ratio (1.0-2.1) Laboratory Results - last 24 hr 01/26/18 01/26/18 01/27/18 21:27 21:27 06:26 WBC 25.5 H 20.5 H RBC 3.12 L 3.10 L Hgb 9.4 L 9.3 L Hct 27.7 L 27.8 L MCV 88.7 89.7 MCH 30.0 30.0 MCHC 33.8 33.5 RDW 15.3 H 15.9 H Plt Count 60 L 74 L MPV 9.7 9.5 Neut % (Auto) 90.7 H 87.7 H Lymph % (Auto) 4.4 L 5.5 L Tompkins % (Auto) 2.5 3.2 Eos % (Auto) 1.5 2.9 Baso % (Auto) 0.9 0.7 Neut # (Auto) 23.1 H 18.0 H Lymph # (Auto) 1.1 1.1 Tompkins # (Auto) 0.6 0.7 Eos # (Auto) 0.4 0.6 Baso # (Auto) 0.2 0.1 Neutrophils % (Manual) 90 H 90 H Band Neutrophils % 1 Lymphocytes % (Manual) 3 L 3 L Reactive Lymphs % 1 H Monocytes % (Manual) 3 4 Eosinophils % (Manual) 3 1 Basophils % (Manual) 1 Nucleated RBC % 1 H 1 H Toxic Granulation Present Platelet Estimate Decreased L Decreased L Large Platelets Present Hypochromasia (manual) Slight Slight Poikilocytosis (manual Slight Slight Anisocytosis (manual) Slight Slight Sodium 145 Potassium 3.4 L Chloride 102 Carbon Dioxide 28 Anion Gap 18 BUN 67 H Creatinine 2.6 H Est GFR ( Amer) 22 Est GFR (Non-Af Amer) 19 Random Glucose 89 Calcium 8.1 L Phosphorus 2.1 L Magnesium 1.9 Total Bilirubin 1.1 AST 30 ALT 44 Alkaline Phosphatase 151 H D Total Protein 5.9 L Albumin 2.9 L Globulin 3.0 Albumin/Globulin Ratio 0.9 L 01/27/18 06:27 WBC RBC Hgb Hct MCV MCH MCHC RDW Plt Count MPV Neut % (Auto) Lymph % (Auto) Tompkins % (Auto) Eos % (Auto) Baso % (Auto) Neut # (Auto) Lymph # (Auto) Tompkins # (Auto) Eos # (Auto) Baso # (Auto) Neutrophils % (Manual) Band Neutrophils % Lymphocytes % (Manual) Reactive Lymphs % Monocytes % (Manual) Eosinophils % (Manual) Basophils % (Manual) Nucleated RBC % Toxic Granulation Platelet Estimate Large Platelets Hypochromasia (manual) Poikilocytosis (manual Anisocytosis (manual) Sodium 144 Potassium 3.9 Chloride 103 Carbon Dioxide 29 Anion Gap 16 BUN 83 H Creatinine 3.4 H Est GFR ( Amer) 17 Est GFR (Non-Af Amer) 14 Random Glucose 84 Calcium 8.2 L Phosphorus 3.1 Magnesium 1.9 Total Bilirubin 1.1 AST 32 ALT 42 Alkaline Phosphatase 137 H Total Protein 5.8 L Albumin 2.9 L Globulin 3.0 Albumin/Globulin Ratio 1.0 Critical Care Progress Note - Nutrition Nutrition: Nutrition Category Date Time Status Liquid Diet [DIET] Diets 01/27/18 Lunch Active Assessment/Plan - Assessment and Plan (Free Text) Plan: PAtient seen and examined with above resident. Above resident docuemnts my clinical findings and management. -PAtietn with underlying PVD, CAD, ESRD on HD with acute blood loss anemia s/p PRBC trasnfusion not on any anticoagualtion, requiring emergent HD post PRBC infusion. -Septic shcok: continue pressors to keep MAp >65, titrate off pressors, source control, consult vascular and podiatry for liekly a non-viable foot for resection -continue broad spectruem abx, vanco/genta per level, and cefepime -wound care, MVI.vitmain C -NPO IV ppi for upper gi bleed -HD as per renal -prognosis poor as patient has mutliple organ dysfunctino with an underlying soft tissue infectin of the foot requiring amputation. cc time 35 minutes - Date & Time Date: 01/27/18 Time: 18:51
--- NOTE | 2018-01-28 06:03 | HP ---
The patient is a 62-year-old female. CHIEF COMPLAINT: Feet pain, low blood pressure, coagulopathy. HISTORY OF PRESENT ILLNESS: Ms. Caryn Card is a 62-year-old female with past medical history of atrial fibrillation, on Coumadin; severe peripheral arterial disease; hypothyroidism; multiple myeloma, status post chemotherapy; recent left hallux osteomyelitis; and end-stage renal disease, on hemodialysis. Came actually in [facility] with dark tarry stools, found to be in shock. The patient stabilized and transferred to [facility] for acute hemodialysis as needed. Now, the patient is in the unit, seen by me in the unit. The patient was getting rehab in [facility] for osteomyelitis. The patient was mildly hypotensive in [facility] and was placed on midodrine. The patient reports not eating well lately. She is not very good historian. In the [facility] ICU, the patient got 3 units of packed RBCs, 3 units of FFP, 2 liters of NS bolus, and put on Levophed drip and currently running at 12 mcg to stabilize her. The patient also had urgent EGD done which shows nonbleeding esophageal and gastric ulcers. PAST MEDICAL HISTORY: As above. Has a history of renal insufficiency, on hemodialysis; osteomyelitis of the foot; diabetes; hypertension. SOCIAL HISTORY: No alcohol, no tobacco, no drugs. FAMILY HISTORY: Father and mother noncontributory. REVIEW OF SYSTEMS: The patient was seen and examined at the bedside in the unit. Lethargic. Not eating much lately. Some difficulty in swallowing. Looks to be a little bit lethargic. Denies any aches and pains. The patient has left foot osteomyelitis, currently on 4-6 weeks of IV antibiotics. PHYSICAL EXAMINATION: VITAL SIGNS: Blood pressure 197/52, heart rate 104, respiratory rate 12, temperature 97.5, oxygen saturation 96% on 3 liters of nasal cannula. HEENT: Head is normocephalic, atraumatic. Eyes, PERRLA. Extraocular muscles intact. Conjunctivae clear. Nose patent. Mucous membranes moist. NECK: Supple. No carotid bruits, JVD, or thyromegaly. CHEST: Bilaterally symmetrical. HEART: S1 and S2 positive. LUNGS: Clear to auscultation. ABDOMEN: Soft. Bowel sounds present. No organomegaly. EXTREMITIES: Positive bilateral lower leg edema, warm. No cyanosis. LABORATORY DATA: White blood cells 25.7; hemoglobin 9.8, on admission it was 7.6; hematocrit 29.3; and platelets 100. Sodium 144, potassium 4.7, BUN 127, creatinine 4.6. AST 25, ALT 40. ASSESSMENT AND PLAN: Ms. Caryn Card has end-stage renal disease, on hemodialysis, relatively stable electrolytes 3 times a week, appeared to be volume overloaded by chest x-ray despite being hypotensive and on Levophed. We will dialyze for both clearance and ultrafiltration. Congestive heart failure, acute decompensated congestive heart failure. The patient with normal systolic function on previous echo done this year last week, but shows right ventricular volume overload; question about the patient being in cardiogenic shock, although left ventricular function was normal. Recommended cardiology evaluation. Looks as the patient has septic shock, acute hypoxic respiratory failure. Chest x-ray done. Severe peripheral arterial disease, left hallux infected ulcer with osteomyelitis with serratia growing and was put on cefepime to complete 4-6 weeks. Gastrointestinal and deep vein thrombosis prophylaxis. Repeat labs. We will follow up. Vanda Marsh MD
[2018-01-28 06:25] LABS: BASO # 0.1 K/uL (0.0-0.2); BASO % 0.7 % (0.0-2.0); EOS # 0.2 K/uL (0.0-0.7); HEMOGLOBIN 9.5 g/dL (11.0-16.0); LYMPH # 1.4 K/uL (1.0-4.3); LYMPH % 6.9 % (20.0-40.0); MEAN CELL VOLUME 92.2 fL (81.0-99.0); MEAN CORPUSCULAR HGB CONC 32.6 g/dL (33.0-37.0); MEAN PLATELET VOLUME 10.1 fL (7.2-11.7); MONO # 0.8 K/uL (0.0-0.8); MONO % 3.7 % (0.0-10.0); NEUT # 17.9 K/uL (1.8-7.0); NEUT % 87.7 % (50.0-75.0); NRBC % 0.9 % (0.0-2.0); PLATELET COUNT 91 K/uL (130-400); RBC 3.18 Mil/uL (3.80-5.20); RED CELL DISTRIBUTION WIDTH 15.8 % (11.5-14.5); WHITE BLOOD COUNT 20.4 K/uL (4.8-10.8)
[2018-01-28 06:37] LABS: ALBUMIN 3.1 g/dL (3.5-5.0); CALCIUM 8.3 mg/dl (8.6-10.4)
[2018-01-28] MEDS: HYDROmorphone 0.5 mg/0.5 ml ISec IVP PRN ×2 (07:35→18:36)
[2018-01-28] MEDS: Multivitamin Vitamin B Complex (Nephro-Vite) Tab PO SCH (07:43)
--- NOTE | 2018-01-28 08:18 | CP.PCM.PN ---
Subjective - Date & Time of Evaluation Date of Evaluation: 01/28/18 Time of Evaluation: 07:30 - Subjective Subjective: SURGERY NOTE FOR DR. MCKINLEY 62F seen and examined at bedside. Patient on high dose pressor levophed. Left foot wound dressing clean dry intact. She complains of pain in the area, denies sensation and motor disfunction. Objective - Vital Signs/Intake and Output Vital Signs (last 24 hours): Temp Pulse Resp BP Pulse Ox 97.5 F L 111 H 18 86/67 L 95 01/28/18 00:00 01/28/18 07:40 01/28/18 07:40 01/28/18 07:40 01/28/18 07:40 Intake and Output: 01/28/18 01/28/18 06:59 18:59 Intake Total 690.1 258 Balance 690.1 258 - Medications Medications: Current Medications Ascorbic Acid (Vitamin C 500 Mg Tab) 500 mg PO DAILY [facility] Last Admin: 01/27/18 10:32 Dose: 500 mg Calcitriol (Rocaltrol) 0.25 mcg PO DAILY [facility] Last Admin: 01/27/18 10:32 Dose: 0.25 mcg Cinacalcet (Sensipar) 30 mg PO DAILY [facility] Home Med (Amino Acid/Protein/Vit C/Zinc [Prosource Ronal Protein Liquid]) 30 ml PO BID [facility] Hydromorphone HCl (Dilaudid) 0.5 mg IVP Q4H PRN PRN Reason: Pain, severe (8-10) Last Admin: 01/28/18 07:35 Dose: 0.5 mg Cefepime HCl (Maxipime Iv 1 Gm Premix) 1 gm in 50 mls @ 100 mls/hr IVPB Q24H [facility] PRN Reason: Protocol Last Admin: 01/27/18 10:33 Dose: 100 mls/hr Norepinephrine Bitartrate 8 mg (/ Sodium Chloride) 258 mls @ 23.22 mls/hr IV .Q11H7M PRN; Protocol; 12 MCG/MIN PRN Reason: TITRATE PER MD ORDER Last Admin: 01/28/18 07:40 Dose: 19.37 mcg/min, 37.5 mls/hr Levothyroxine Sodium (Synthroid) 25 mcg PO 0600 [facility] Midodrine (Proamatine) 5 mg PO TID [facility] Last Admin: 01/27/18 17:51 Dose: 5 mg Pantoprazole Sodium (Protonix Inj) 40 mg IVP Q12H [facility] Last Admin: 01/28/18 05:16 Dose: 40 mg Sevelamer Carbonate (Renvela) 4 mg PO ACTID [facility] Sucralfate (Carafate Oral Susp) 1 gm PO TID [facility] Last Admin: 01/27/18 17:52 Dose: 1 gm Vitamin B Complex/Vit C/Folic Acid (Nephro-Sarah) 1 tab PO 0800 [facility] Last Admin: 01/28/18 07:43 Dose: 1 tab Vitamin B Complex/Vit C/Folic Acid (Nephro-Sarah) 1 tab PO DAILY [facility] - Labs Labs: 01/28/18 06:13 01/28/18 06:13 - Constitutional Appears: Older Than Stated Age - Respiratory Exam Respiratory Exam: Clear to Ausculation Bilateral, NORMAL BREATHING PATTERN - Cardiovascular Exam Cardiovascular Exam: REGULAR RHYTHM, +S1, +S2 - GI/Abdominal Exam GI & Abdominal Exam: Soft. absent: Distended, Firm, Guarding, Rigid, Tenderness , Rebound - Extremities Exam Additional comments: left lower extremity wound on the dorsal aspect of the foot gatherer to palpation, oozing serosang fluid Roger wrap Patient has sensation and motor on both feet dopplerable signals DP/PT bilaterally - Neurological Exam Neurological Exam: Alert, Awake Assessment and Plan - Assessment and Plan (Free Text) Assessment: 62F with left feet wound and PVD Plan: medical stabilization BKA after stabilization Further recs discuss with Dr. Dena Valles, PGY2
--- NOTE | 2018-01-28 08:28 | CP.CCUPN ---
<Brionna Raphael - Last Filed: 01/28/18 08:15> CCU Subjective - Physician Review Subjective (Free Text): Patient was seen and examined at bedside. Patient is more awake and responsive. CCU Objective - Vital Signs / Intake & Output Vital Signs (Last 4 hours): Vital Signs Pulse Resp BP Pulse Ox 01/28/18 07:40 111 H 18 86/67 L 95 01/28/18 07:32 107 H 17 01/28/18 06:32 101 H 10 L 105/62 01/28/18 06:02 97 H 12 110/77 01/28/18 06:00 107 H 13 01/28/18 05:32 107 H 11 L 103/67 01/28/18 05:02 104 H 15 109/69 84 L 01/28/18 05:00 115 H 13 92 L 01/28/18 04:32 105 H 17 114/76 Intake and Output (Last 8hrs): Intake & Output 01/27/18 01/28/18 01/28/18 22:59 06:59 14:59 Intake Total 588.5 460.0 258 Output Total 1000 Balance -411.5 460.0 258 Weight 189 lb 9.561 oz Intake: IV 248 160 258 Intake, IV Amount 240.5 300.0 Right Proximal Port 240.5 300.0 Internal Jugular Oral 100 Output: Drainage 1000 HD fluid removal 1000 Other: # Voids Urine, Voided 0 # Bowel Movements 0 - Physical Exam Head: Positive for: Atraumatic, Normocephalic Pupils: Positive for: PERRL Extroacular Muscles: Positive for: EOMI Conjunctiva: Positive for: Normal Ears: Positive for: NORMAL TM Mouth: Positive for: Dry Neck: Positive for: Normal Range of Motion Respiratory/Chest: Positive for: Clear to Auscultation. Negative for: Respiratory Distress Cardiovascular: Positive for: Regular Rate and Rhythm Abdomen: Positive for: Normal Bowel Sounds. Negative for: Tenderness, Distention Upper Extremity: Positive for: Normal ROM, Neurovascularly Intact, Capillary Refill < 2s, Other (Left AVF ) Lower Extremity: Positive for: Other (left lower extremity wound on the dorsal aspect of the foot) Neurological: Positive for: GCS=15, CN II-XII Intact Skin: Positive for: Warm, Dry, Normal Color Psychiatric: Positive for: Oriented x 3 - Medications Active Medications: Active Medications Generic Name Dose Route Start Last Admin Trade Name Freq PRN Reason Stop Dose Admin Ascorbic Acid 500 mg 01/27/18 10:00 01/27/18 10:32 Vitamin C 500 Mg Tab PO 500 mg DAILY [facility] Administration Calcitriol 0.25 mcg 01/27/18 10:00 01/27/18 10:32 Rocaltrol PO 0.25 mcg DAILY [facility] Administration Cinacalcet 30 mg 01/28/18 10:00 Sensipar PO DAILY [facility] Home Med 30 ml 01/28/18 10:00 Amino Acid/Protein/Vit C/Zinc [Prosource Ronal Protein Liquid] PO BID [facility] Hydromorphone HCl 0.5 mg 01/27/18 09:14 01/28/18 07:35 Dilaudid IVP 0.5 mg Q4H PRN Administration Pain, severe (8-10) Cefepime HCl 1 gm in 50 mls @ 100 mls/hr 01/27/18 10:00 01/27/18 10:33 Maxipime Iv 1 Gm Premix IVPB 100 mls/hr Q24H [facility] Administration Protocol Norepinephrine Bitartrate 8 mg 258 mls @ 23.22 mls/hr 01/26/18 17:46 07:40 / Sodium Chloride IV 19.37 mcg/min .Q11H7M PRN 37.5 mls/hr TITRATE PER MD ORDER Administration Protocol 12 MCG/MIN Levothyroxine Sodium 25 mcg 01/29/18 06:00 Synthroid PO 0600 [facility] Midodrine 5 mg 01/26/18 18:00 01/27/18 17:51 Proamatine PO 5 mg TID [facility] Administration Pantoprazole Sodium 40 mg 01/26/18 17:30 01/28/18 05:16 Protonix Inj IVP 40 mg Q12H [facility] Administration Sevelamer Carbonate 4 mg 01/28/18 11:30 Renvela PO ACTID [facility] Sucralfate 1 gm 01/26/18 18:00 01/27/18 17:52 Carafate Oral Susp PO 1 gm TID [facility] Administration Vitamin B Complex/Vit C/Folic Acid 1 tab 01/28/18 08:00 01/28/18 07:43 Nephro-Sarah PO 1 tab 0800 [facility] Administration Vitamin B Complex/Vit C/Folic Acid 1 tab 01/28/18 10:00 Nephro-Sarah PO DAILY [facility] - Patient Studies Lab Studies: Lab Studies 01/28/18 01/28/18 01/27/18 Range/Units 06:13 06:13 06:26 WBC 20.4 H (4.8-10.8) K/uL RBC 3.18 L (3.80-5.20) Mil/uL Hgb 9.5 L (11.0-16.0) g/dL Hct 29.3 L (34.0-47.0) % MCV 92.2 D (81.0-99.0) fL MCH 30.0 (27.0-31.0) pg MCHC 32.6 L (33.0-37.0) g/dL RDW 15.8 H (11.5-14.5) % Plt Count 91 L (130-400) K/uL MPV 10.1 (7.2-11.7) fL Neut % (Auto) 87.7 H (50.0-75.0) % Lymph % (Auto) 6.9 L (20.0-40.0) % [place] % (Auto) 3.7 (0.0-10.0) % Eos % (Auto) 1.0 (0.0-4.0) % Baso % (Auto) 0.7 (0.0-2.0) % Neut # (Auto) 17.9 H (1.8-7.0) K/uL Lymph # (Auto) 1.4 (1.0-4.3) K/uL [place] # (Auto) 0.8 (0.0-0.8) K/uL Eos # (Auto) 0.2 (0.0-0.7) K/uL Baso # (Auto) 0.1 (0.0-0.2) K/uL Neutrophils % (Manual) 90 H (50-75) % Band Neutrophils % 1 (0-2) % Lymphocytes % (Manual) 3 L (20-40) % Monocytes % (Manual) 4 (0-10) % Eosinophils % (Manual) 1 (0-4) % Basophils % (Manual) 1 (0-2) % Nucleated RBC % 1 H (0-0) % Toxic Granulation Present Platelet Estimate Decreased L (NORMAL) Hypochromasia (manual) Slight Poikilocytosis (manual Slight Anisocytosis (manual) Slight Sodium 145 (132-148) mmol/L Potassium 4.6 (3.6-5.2) mmol/L Chloride 105 (98-107) mmol/L Carbon Dioxide 24 (22-30) mmol/L Anion Gap 20 (10-20) BUN 93 H (7-17) mg/dL Creatinine 4.2 H (0.7-1.2) mg/dL Est GFR ( Amer) 13 Est GFR (Non-Af Amer) 11 Random Glucose 93 (65-105) mg/dL Calcium 8.3 L (8.6-10.4) mg/dl Phosphorus 4.4 (2.5-4.5) mg/dL Magnesium 2.0 (1.6-2.3) mg/dL Total Bilirubin 1.1 (0.2-1.3) mg/dL AST 29 (14-36) U/L ALT 42 (9-52) U/L Alkaline Phosphatase 137 H (38-126) U/L Total Protein 6.2 L (6.3-8.3) g/dL Albumin 3.1 L (3.5-5.0) g/dL Globulin 3.2 (2.2-3.9) gm/dL Albumin/Globulin Ratio 1.0 (1.0-2.1) Laboratory Results - last 24 hr 01/27/18 01/28/18 01/28/18 06:26 06:13 06:13 WBC 20.4 H RBC 3.18 L Hgb 9.5 L Hct 29.3 L MCV 92.2 D MCH 30.0 MCHC 32.6 L RDW 15.8 H Plt Count 91 L MPV 10.1 Neut % (Auto) 87.7 H Lymph % (Auto) 6.9 L [place] % (Auto) 3.7 Eos % (Auto) 1.0 Baso % (Auto) 0.7 Neut # (Auto) 17.9 H Lymph # (Auto) 1.4 [place] # (Auto) 0.8 Eos # (Auto) 0.2 Baso # (Auto) 0.1 Neutrophils % (Manual) 90 H Band Neutrophils % 1 Lymphocytes % (Manual) 3 L Monocytes % (Manual) 4 Eosinophils % (Manual) 1 Basophils % (Manual) 1 Nucleated RBC % 1 H Toxic Granulation Present Platelet Estimate Decreased L Hypochromasia (manual) Slight Poikilocytosis (manual Slight Anisocytosis (manual) Slight Sodium 145 Potassium 4.6 Chloride 105 Carbon Dioxide 24 Anion Gap 20 BUN 93 H Creatinine 4.2 H Est GFR ( Amer) 13 Est GFR (Non-Af Amer) 11 Random Glucose 93 Calcium 8.3 L Phosphorus 4.4 Magnesium 2.0 Total Bilirubin 1.1 AST 29 ALT 42 Alkaline Phosphatase 137 H Total Protein 6.2 L Albumin 3.1 L Globulin 3.2 Albumin/Globulin Ratio 1.0 Critical Care Progress Note - Nutrition Nutrition: Nutrition Category Date Time Status Liquid Diet [DIET] Diets 01/27/18 Lunch Active Assessment/Plan - Assessment and Plan (Free Text) Assessment: 62 year old female with PMHx of A-fib on warfarin, severe PAD, ESRD/anuric (HD TTS; last dialysis Tuesday), hypothyroidism, Multiple Myeloma S/P chemotherapy and radiation therapy, left hallux infected ulcer with osteomyelitis with Serratia growing (01/16) and was put on Cefepime to complete 4-6 weeks ( discharged 01/20), she was admitted 01/25 with hemorrhagic shock and septic shock, given 3u PRBC, and 2U FFP, 2L bolus, s/p EGD 01/26 which showed ulcers, no active bleeding. Patient transferred to [facility] for further care and for dialysis. Currently the patient is on Levophed. Plan: Neuro: AAO x 3 Cardio: A: Hypotensive septic versus hemorrhagic shock - Levophed drip - Midodrine TID A: Atrial Fib - On Warfarin - HELD - ECHO 01/17: LVEF 70%, RV volume overload, mild LVH, Severe TR, moderate pulm HTN Pulm: A: Fluid Overload - Will be placed on BiPAP after dialysis sessions GI: A: GIB - EGD done today at [facility] – [place], [place]. Showed non-bleeding gastric and esophageal ulcers. No overt signs of bleeding seen on EGD. Patient will need a colonoscopy. - Sucralfate TID, Protonix BID - CLD Renal: A: ESRD/anuric (HD TTS; L AVF; last dialysis Tuesday) Dr. Preciado consulted - Received dialysis 01/26, 01/27 Endo: A: Hypothyroidism - Resumed Synthroid ID: A: Septic/ Hemorrhagic Shock - BC 01/25 - drawn from [place] no growth to date A: Left hallux infected ulcer with Osteomyelitis ID Consulted - Dr. Szymanski Podiatry consulted Dr. Mcgee and Wound Care consulted - Serratia growing (01/16) and was put on Cefepime to complete 4-6 weeks ( discharged 01/20) - Resumed Cefepime, gave one dose Gentamycin and Vanco after dialysis - Repeat Wound culture pending Heme/ Onc: A: Anemia 2/2 acute blood loss - Transfused total 3u PRBC and 2U FFP - at [facility] - Continue to monitor A: Multiple Myeloma S/P chemotherapy and radiation therapy Vascular: A: Severe PVD Vascular Surgery consulted - Dr. Fernandes - Angiogram done in [place] in December revealed non occlusions of vessels in lower extremity - Arterial PVRs ordered - Likely left BKA Prophylaxis: - Protonix BID - SCDs, VTE c/i 2/2 Osteo, PVD, and GI Bleed - PT/OT DW Brionna Patel DO, PGY-1 <Marcella Gibbs - Last Filed: 01/28/18 15:01> CCU Objective - Vital Signs / Intake & Output Vital Signs (Last 4 hours): Vital Signs Temp Pulse Resp BP 01/28/18 13:00 99 H 18 121/58 L 01/28/18 12:00 98.4 F 103 H 18 107/51 L 01/28/18 11:00 106 H 19 99/71 L Intake and Output (Last 8hrs): Intake & Output 01/27/18 01/28/18 01/28/18 22:59 06:59 14:59 Intake Total 588.5 460.0 970.5 Output Total 1000 Balance -411.5 460.0 970.5 Weight 189 lb 9.561 oz Intake: IV 248 160 258 Intake, IV Amount 240.5 300.0 412.5 Right Medial Port 150 Right Proximal Port 240.5 300.0 262.5 Internal Jugular Oral 100 300 Output: Drainage 1000 HD fluid removal 1000 Other: # Voids Urine, Voided 0 # Bowel Movements 0 - Medications Active Medications: Active Medications Generic Name Dose Route Start Last Admin Trade Name Freq PRN Reason Stop Dose Admin Albumin Human 25 gm 01/28/18 09:30 01/28/18 14:29 Albumin Human 25% (12.5 Gm/50 Ml) IV 01/29/18 03:31 25 gm Q6H [facility] Administration Ascorbic Acid 500 mg 01/27/18 10:00 01/28/18 09:53 Vitamin C 500 Mg Tab PO 500 mg DAILY [facility] Administration Hydromorphone HCl 0.25 mg 01/28/18 09:28 Dilaudid IVP Q8H PRN Pain, severe (8-10) Cefepime HCl 1 gm in 50 mls @ 100 mls/hr 01/27/18 10:00 01/28/18 09:54 Maxipime Iv 1 Gm Premix IVPB 100 mls/hr Q24H [facility] Administration Protocol Norepinephrine Bitartrate 8 mg 258 mls @ 23.22 mls/hr 01/26/18 17:46 07:40 / Sodium Chloride IV 19.37 mcg/min .Q11H7M PRN 37.5 mls/hr TITRATE PER MD ORDER Administration Protocol 12 MCG/MIN Vancomycin HCl 500 mg/ Sodium 100 mls @ 100 mls/hr 01/28/18 14:55 Chloride IVPB 01/28/18 15:54 ONCE ONE Protocol Levothyroxine Sodium 25 mcg 01/29/18 06:00 Synthroid PO 0600 [facility] Midodrine 5 mg 01/26/18 18:00 01/28/18 14:28 Proamatine PO 5 mg TID [facility] Administration Pantoprazole Sodium 40 mg 01/26/18 17:30 01/28/18 05:16 Protonix Inj IVP 40 mg Q12H [facility] Administration Sucralfate 1 gm 01/26/18 18:00 01/28/18 14:28 Carafate Oral Susp PO 1 gm TID [facility] Administration Vitamin B Complex/Vit C/Folic Acid 1 tab 01/28/18 08:00 01/28/18 07:43 Nephro-Sarah PO 1 tab 0800 [facility] Administration Vitamin B Complex/Vit C/Folic Acid 1 tab 01/28/18 10:00 01/28/18 09:47 Nephro-Sarah PO Not Given DAILY [facility] - Patient Studies Lab Studies: Microbiology Studies 01/26/18 Unknown MRSA Culture (Admit) - Final Nose MRSA NOT DETECTED Lab Studies 06/16/18 06/16/18 06/16/18 Range/Units 10:00 06:13 06:13 WBC 20.4 H (4.8-10.8) K/uL RBC 3.18 L (3.80-5.20) Mil/uL Hgb 9.5 L (11.0-16.0) g/dL Hct 29.3 L (34.0-47.0) % MCV 92.2 D (81.0-99.0) fL MCH 30.0 (27.0-31.0) pg MCHC 32.6 L (33.0-37.0) g/dL RDW 15.8 H (11.5-14.5) % Plt Count 91 L (130-400) K/uL MPV 10.1 (7.2-11.7) fL Neut % (Auto) 87.7 H (50.0-75.0) % Lymph % (Auto) 6.9 L (20.0-40.0) % [place] % (Auto) 3.7 (0.0-10.0) % Eos % (Auto) 1.0 (0.0-4.0) % Baso % (Auto) 0.7 (0.0-2.0) % Neut # (Auto) 17.9 H (1.8-7.0) K/uL Lymph # (Auto) 1.4 (1.0-4.3) K/uL [place] # (Auto) 0.8 (0.0-0.8) K/uL Eos # (Auto) 0.2 (0.0-0.7) K/uL Baso # (Auto) 0.1 (0.0-0.2) K/uL Neutrophils % (Manual) 93 H (50-75) % Lymphocytes % (Manual) 5 L (20-40) % Monocytes % (Manual) 2 (0-10) % Platelet Estimate Decreased L (NORMAL) Polychromasia Slight Hypochromasia (manual) Slight Anisocytosis (manual) Slight Target Cells Slight Sodium 145 (132-148) mmol/L Potassium 4.6 (3.6-5.2) mmol/L Chloride 105 (98-107) mmol/L Carbon Dioxide 24 (22-30) mmol/L Anion Gap 20 (10-20) BUN 93 H (7-17) mg/dL Creatinine 4.2 H (0.7-1.2) mg/dL Est GFR ( Amer) 13 Est GFR (Non-Af Amer) 11 Random Glucose 93 (65-105) mg/dL Calcium 8.3 L (8.6-10.4) mg/dl Phosphorus 4.4 (2.5-4.5) mg/dL Magnesium 2.0 (1.6-2.3) mg/dL Total Bilirubin 1.1 (0.2-1.3) mg/dL AST 29 (14-36) U/L ALT 42 (9-52) U/L Alkaline Phosphatase 137 H (38-126) U/L Total Protein 6.2 L (6.3-8.3) g/dL Albumin 3.1 L (3.5-5.0) g/dL Globulin 3.2 (2.2-3.9) gm/dL Albumin/Globulin Ratio 1.0 (1.0-2.1) Random Gentamicin 5.2 ug/mL Random Vancomycin 12.8 ug/mL Laboratory Results - last 24 hr 01/28/18 01/28/18 01/28/18 06:13 06:13 10:00 WBC 20.4 H RBC 3.18 L Hgb 9.5 L Hct 29.3 L MCV 92.2 D MCH 30.0 MCHC 32.6 L RDW 15.8 H Plt Count 91 L MPV 10.1 Neut % (Auto) 87.7 H Lymph % (Auto) 6.9 L [place] % (Auto) 3.7 Eos % (Auto) 1.0 Baso % (Auto) 0.7 Neut # (Auto) 17.9 H Lymph # (Auto) 1.4 [place] # (Auto) 0.8 Eos # (Auto) 0.2 Baso # (Auto) 0.1 Neutrophils % (Manual) 93 H Lymphocytes % (Manual) 5 L Monocytes % (Manual) 2 Platelet Estimate Decreased L Polychromasia Slight Hypochromasia (manual) Slight Anisocytosis (manual) Slight Target Cells Slight Sodium 145 Potassium 4.6 Chloride 105 Carbon Dioxide 24 Anion Gap 20 BUN 93 H Creatinine 4.2 H Est GFR ( Amer) 13 Est GFR (Non-Af Amer) 11 Random Glucose 93 Calcium 8.3 L Phosphorus 4.4 Magnesium 2.0 Total Bilirubin 1.1 AST 29 ALT 42 Alkaline Phosphatase 137 H Total Protein 6.2 L Albumin 3.1 L Globulin 3.2 Albumin/Globulin Ratio 1.0 Random Gentamicin 5.2 Random Vancomycin 12.8 Critical Care Progress Note - Nutrition Nutrition: Nutrition Category Date Time Status Liquid Diet [DIET] Diets 01/27/18 Lunch Active Assessment/Plan - Assessment and Plan (Free Text) Plan: Patient seen and examined at bedside. Patient with soft tissue infection left lower leg, esrd on HD, PVD admitted to [facility] [place] for HD while on pressors -septic shock: continue pressors to keep MAP >65, broad spectrum abx, vanco level 12, re-dose 500 mg now, genta leve l > 1, continue cefepime -esrd on HD -CAD: not on AC or antiplatets 2nd Gi bleed pud ppx protonix -scds -decrease dilaudid as patient omre drowsy today -continue to monitor and plan for source control - Date & Time Date: 01/28/18 Time: 15:01
[2018-01-28 08:59] LABS: LYMPHOCYTE 5 % (20-40); MONOCYTE 2 % (0-10); NEUTROPHIL 93 % (50-75); TOTAL CELLS COUNTED 100
[2018-01-28 09:00] LABS: ANISOCYTOSIS SLIGHT; HYPOCHROMIC SLIGHT; PLATELET ESTIMATE DECREASED (NORMAL); POLYCHROMIC SLIGHT
[2018-01-28 09:01] LABS: TARGET CELLS SLIGHT
[2018-01-28] MEDS: Sucralfate 1 gm/10 ml Oral Susp UD PO SCH ×3 (09:49→17:39)
[2018-01-28] MEDS: Cefepime IV 1 gm in Dextrose 1 GM/50 ML BAG IVPB SCH (09:54)
[2018-01-28] MEDS ORDERED: ZINC PO SCH (10:00)
[2018-01-28] MEDS ORDERED: AMINO ACID PO SCH (10:00)
[2018-01-28] MEDS ORDERED: VIT C PO SCH (10:00)
[2018-01-28] MEDS ORDERED: Multivitamin Vitamin B Complex (Nephro-Vite) Tab PO SCH (10:00)
[2018-01-28] MEDS ORDERED: PROTEIN PO SCH (10:00)
[2018-01-28] MEDS: Albumin Human 25% (12.5 gm/50 ml) IV SCH ×3 (10:47→21:46)
[2018-01-28 10:56] LABS: VANCOMYCIN RANDOM 12.8 ug/mL
--- NOTE | 2018-01-28 12:38 | CP.PCM.PN ---
Subjective - Date & Time of Evaluation Date of Evaluation: 01/28/18 Time of Evaluation: 12:34 - Subjective Subjective: Podiatry consult note: Dr. Mcgee 62 year old female patient seen and evaluated at bedside with attending Dr. Mcgee for wound to left hallux wound and left dorso-lateral foot secondary to lanced blister as well as chronic Bonilla fracture of left foot. Patient is AAOx3 but does not respond to verbal commands well. Responds with head nod at the time of the visit. Reports that the wound is very painful. Denies any recent N/V /F/C/CP/SOB/D. No other pedal complains at this time. Past medical history: a.fib (on Coumadin), Multiple myeloma s/p chemo/radiation , ESRD on HD, PVD Past surgical history: AV fistula, thoracic back surgery, cholecystectomy Home meds: Reviewed as per [facility] Allergies: IV contrast (rash) Social history: Denies EtOH, drug or tobacco use. Family history: Denies Objective - Vital Signs/Intake and Output Vital Signs (last 24 hours): Temp Pulse Resp BP Pulse Ox 97.4 F L 106 H 19 99/71 L 95 01/28/18 08:00 01/28/18 11:00 01/28/18 11:00 01/28/18 11:00 01/28/18 07:40 Intake and Output: 01/28/18 01/28/18 06:59 18:59 Intake Total 690.1 595.5 Balance 690.1 595.5 - Medications Medications: Current Medications Albumin Human (Albumin Human 25% (12.5 Gm/50 Ml)) 25 gm IV Q6H [facility] Stop: 01/29/18 03:31 Last Admin: 01/28/18 10:47 Dose: 25 gm Ascorbic Acid (Vitamin C 500 Mg Tab) 500 mg PO DAILY [facility] Last Admin: 01/28/18 09:53 Dose: 500 mg Hydromorphone HCl (Dilaudid) 0.25 mg IVP Q8H PRN PRN Reason: Pain, severe (8-10) Cefepime HCl (Maxipime Iv 1 Gm Premix) 1 gm in 50 mls @ 100 mls/hr IVPB Q24H [facility] PRN Reason: Protocol Last Admin: 01/28/18 09:54 Dose: 100 mls/hr Norepinephrine Bitartrate 8 mg (/ Sodium Chloride) 258 mls @ 23.22 mls/hr IV .Q11H7M PRN; Protocol; 12 MCG/MIN PRN Reason: TITRATE PER MD ORDER Last Admin: 01/28/18 07:40 Dose: 19.37 mcg/min, 37.5 mls/hr Levothyroxine Sodium (Synthroid) 25 mcg PO 0600 [facility] Midodrine (Proamatine) 5 mg PO TID [facility] Last Admin: 01/28/18 09:51 Dose: 5 mg Pantoprazole Sodium (Protonix Inj) 40 mg IVP Q12H [facility] Last Admin: 01/28/18 05:16 Dose: 40 mg Sevelamer Carbonate (Renvela) 4 mg PO ACTID [facility] Sucralfate (Carafate Oral Susp) 1 gm PO TID [facility] Last Admin: 01/28/18 09:49 Dose: 1 gm Vitamin B Complex/Vit C/Folic Acid (Nephro-Sarah) 1 tab PO 0800 [facility] Last Admin: 01/28/18 07:43 Dose: 1 tab Vitamin B Complex/Vit C/Folic Acid (Nephro-Sarah) 1 tab PO DAILY [facility] Last Admin: 01/28/18 09:47 Dose: Not Given - Labs Labs: 01/28/18 06:13 01/28/18 06:13
--- NOTE | 2018-01-28 12:43 | CP.PCM.CON ---
History of Present Illness - History of Present Illness History of Present Illness: Podiatry consult note: Dr. Mcgee 62 year old female patient seen and evaluated at bedside with attending Dr. Mcgee for wound to left hallux wound and left dorso-lateral foot secondary to lanced blister as well as chronic Bonilla fracture of left foot. Patient is AAOx3 but does not respond to verbal commands well. Responds with head nod at the time of the visit. Reports that the wound is very painful. Denies any recent N/V /F/C/CP/SOB/D. No other pedal complains at this time. Past medical history: a.fib (on Coumadin), Multiple myeloma s/p chemo/radiation , ESRD on HD, PVD Past surgical history: AV fistula, thoracic back surgery, cholecystectomy Home meds: Reviewed as per MAR Allergies: IV contrast (rash) Social history: Denies EtOH, drug or tobacco use. Family history: Denies Review of Systems - Constitutional Constitutional: As Per HPI Past Patient History - Infectious Disease Hx of Infectious Diseases: None - Past Medical History & Family History Past Medical History?: Yes - Past Social History Smoking Status: Never Smoked - CARDIAC Hx Atrial Fibrillation: Yes Hx Pacemaker: No Hx Peripheral Edema: Yes (ble +1 pitting dry leathery skin) Hx Peripheral Vascular Disease: Yes Other/Comment: left foot cool to touch - PULMONARY Other/Comment: pt had sleep study and was dx with sleep apnea by dr ding, could not tolerate cpap at home needs to follow up with dr ding but has not been feeling well - NEUROLOGICAL Hx Neurological Disorder: No - RENAL Hx Renal Failure: Yes (ESRD, Osteomyelitis, Sleep Apnea,) - ENDOCRINE/METABOLIC Hx Endocrine Disorders: No - HEMATOLOGICAL/ONCOLOGICAL Hx Cancer: Yes Other/Comment: myeloma, osteomyelitis - INTEGUMENTARY Hx Dermatological Problems: Yes Other/Comment: ble discolored +1 pitting edema leathery skin, generalized dry flakey skin over body, dry skin to buttocks no openings, left foot toes ardry flakey skin both feete dry hard 1/2 nail missing from great toe, closed blister to top of foot, ischemic ulceration to left foot, painful, dry skin and toes r ft - MUSCULOSKELETAL/RHEUMATOLOGICAL Hx Falls: No - GASTROINTESTINAL Hx Gastrointestinal Disorders: Yes (weight loss poor appetite) - GENITOURINARY/GYNECOLOGICAL Hx Genitourinary Disorders: Yes (gangrenous cystitis) - PSYCHIATRIC Hx Anxiety: Yes Hx Emotional Abuse: No Hx Physical Abuse: No Hx Substance Use: No - SURGICAL HISTORY Hx Cholecystectomy: Yes (2007) Other/Comment: left arm av fistula, r arm port in and out post chemo when dx with multiple myeloma, angiogram rle 12/27/17 dr dilan lainez, fistulagram - ANESTHESIA Hx Anesthesia Reactions: Yes (HIGH TOLERANCE) Hx Malignant Hyperthermia: No Meds Allergies/Adverse Reactions: Allergies Allergy/AdvReac Type Severity Reaction Status Date / Time IV CONTRAST Allergy Mild RASH Uncoded 01/27/18 14:29 - Medications Medications: Current Medications Albumin Human (Albumin Human 25% (12.5 Gm/50 Ml)) 25 gm IV Q6H REPLACED BY [facility] Stop: 01/29/18 03:31 Last Admin: 01/28/18 10:47 Dose: 25 gm Ascorbic Acid (Vitamin C 500 Mg Tab) 500 mg PO DAILY REPLACED BY [facility] Last Admin: 01/28/18 09:53 Dose: 500 mg Hydromorphone HCl (Dilaudid) 0.25 mg IVP Q8H PRN PRN Reason: Pain, severe (8-10) Cefepime HCl (Maxipime Iv 1 Gm Premix) 1 gm in 50 mls @ 100 mls/hr IVPB Q24H [facility] PRN Reason: Protocol Last Admin: 01/28/18 09:54 Dose: 100 mls/hr Norepinephrine Bitartrate 8 mg (/ Sodium Chloride) 258 mls @ 23.22 mls/hr IV .Q11H7M PRN; Protocol; 12 MCG/MIN PRN Reason: TITRATE PER MD ORDER Last Admin: 01/28/18 07:40 Dose: 19.37 mcg/min, 37.5 mls/hr Levothyroxine Sodium (Synthroid) 25 mcg PO 0600 [facility] Midodrine (Proamatine) 5 mg PO TID REPLACED BY [facility] Last Admin: 01/28/18 09:51 Dose: 5 mg Pantoprazole Sodium (Protonix Inj) 40 mg IVP Q12H REPLACED BY [facility] Last Admin: 01/28/18 05:16 Dose: 40 mg Sevelamer Carbonate (Renvela) 4 mg PO ACTID REPLACED BY [facility] Sucralfate (Carafate Oral Susp) 1 gm PO TID REPLACED BY [facility] Last Admin: 01/28/18 09:49 Dose: 1 gm Vitamin B Complex/Vit C/Folic Acid (Nephro-Sarah) 1 tab PO 0800 [facility] Last Admin: 01/28/18 07:43 Dose: 1 tab Vitamin B Complex/Vit C/Folic Acid (Nephro-Sarah) 1 tab PO DAILY [facility] Last Admin: 01/28/18 09:47 Dose: Not Given Physical Exam - Constitutional Appears: Well, Non-toxic, No Acute Distress - Extremities Exam Additional comments: B/l LE focused exam Vasc: DP/PT pulses faintly palpable to b/l LE. CFT < 3 seconds to all digits. Skin temperature warm to warm from proximal to distal WNL b/l Neuro: Epicritic and protective sensation grossly intact b/l Derm: RLE - Approximately 0.2 cm x 0.2 cm x 0.1 cm ulceration noted to right lateral heel. Base fibrogranular and improving. No erythema, malodor, drainage, probe to bone, tracking, tunneling or undermining noted. No other clinical signs of infection noted LLE- Olsen grade 2/possible 3 noted at the dorso-lateral aspect of the left foot, necrotic changes noted surrounding the wound, no erythema, wound base is mainly fibrotic with exposed tendons, no mal-odor, no periwound erythema, small amount of bleeding noted from the wound site, no purulence, active serous drainage, no clinical suspicion of active infection at this time, avulsed nail plate noted on the hallux of the left foot MSK: Diffuse pain noted to left foot and leg with palpation, especially at site of blister and left hallux, improved since yesterday. No POP to right foot ulceration. No other gross deformities noted b/l - Neurological Exam Neurological exam: Alert, Oriented x3 - Psychiatric Exam Psychiatric exam: Normal Affect, Normal Mood Results - Vital Signs Recent Vital Signs: Last Vital Signs Temp 97.4 F L 01/28/18 08:00 Pulse 106 H 01/28/18 11:00 Resp 19 01/28/18 11:00 BP 99/71 L 01/28/18 11:00 Pulse Ox 95 01/28/18 07:40 - Labs Result Diagrams: 01/28/18 06:13 01/28/18 06:13 Labs: Laboratory Results - last 24 hr 01/28/18 01/28/18 01/28/18 06:13 06:13 10:00 WBC 20.4 H RBC 3.18 L Hgb 9.5 L Hct 29.3 L MCV 92.2 D MCH 30.0 MCHC 32.6 L RDW 15.8 H Plt Count 91 L MPV 10.1 Neut % (Auto) 87.7 H Lymph % (Auto) 6.9 L [place] % (Auto) 3.7 Eos % (Auto) 1.0 Baso % (Auto) 0.7 Neut # (Auto) 17.9 H Lymph # (Auto) 1.4 [place] # (Auto) 0.8 Eos # (Auto) 0.2 Baso # (Auto) 0.1 Neutrophils % (Manual) 93 H Lymphocytes % (Manual) 5 L Monocytes % (Manual) 2 Platelet Estimate Decreased L Polychromasia Slight Hypochromasia (manual) Slight Anisocytosis (manual) Slight Target Cells Slight Sodium 145 Potassium 4.6 Chloride 105 Carbon Dioxide 24 Anion Gap 20 BUN 93 H Creatinine 4.2 H Est GFR ( Amer) 13 Est GFR (Non-Af Amer) 11 Random Glucose 93 Calcium 8.3 L Phosphorus 4.4 Magnesium 2.0 Total Bilirubin 1.1 AST 29 ALT 42 Alkaline Phosphatase 137 H Total Protein 6.2 L Albumin 3.1 L Globulin 3.2 Albumin/Globulin Ratio 1.0 Random Gentamicin 5.2 Random Vancomycin 12.8 Assessment & Plan - Assessment and Plan (Free Text) Assessment: 62 year old female patient with significant PMHx was evaluated for wound to left hallux wound and left dorso-lateral foot secondary to lanced blister; chronic Bonilla fracture of left foot. Plan: Patient seen and evaluated at bedside with attending Dr. Mcgee Afebrile, WBC 20.4 01/16/18 Wound Cx left toe: Serratia Marcescens L foot xray 01/16: There is a well defined cortical defect in the proximal fifth metatarsal that is most consistent with an old fracture. There is also periosteal thickening in the third and fourth metatarsal L foot MRI 01/18: Probable OM of first distal phalanx LE arterial duplex: 1. Limited exam due to calcified vessels 2. B/l SFA disease 3. B/l popliteal, trifurcation, and/or tibial disease 4. If clinically indicated , further evaluation with MRA with gadolinium runoff, CTA runoff or conventional arteriogram can be considered LE venous duplex: No sonographic evidence of DVT Left foot lanced blister site dressed with Telfa, DSD, DONNA Continue IV abx per ID Continue pain meds Vascular on board -Patient is scheduled for BKA s/p stabilization Patient to remain NWB to left foot due to chronic Bonilla fracture Podiatry will continue to follow while patient in house - Date & Time Date: 01/28/18 Time: 12:49
--- NOTE | 2018-01-28 13:39 | RAD ---
HISTORY: pulmonary edema COMPARISON: 01/27/2018 FINDINGS: LUNGS: Left basilar and multifocal right-sided pulmonary opacity. Nonspecific. Improved compared to 01/27. Possible resolving pulmonary edema. PLEURA: Small left pleural effusion. Right apical pleural thickening. CARDIOVASCULAR: Normal heart size. Right central venous catheter. OSSEOUS STRUCTURES: Thoracolumbar spinal fixation. VISUALIZED UPPER ABDOMEN: Normal. OTHER FINDINGS: None. IMPRESSION: Probable resolving pulmonary edema. Right apical pleural thickening. Central venous catheter.
--- NOTE | 2018-01-28 15:08 | VASCLAB ---
STUDY DESCRIPTION: HISTORY: left foot osteo/ evaluate PAD PRIORS: None. TECHNIQUE: Pulse volume recording waveforms and segmental pressures of bilateral lower extremities at multiple levels were obtained. Ankle Brachial Indices (ABIs) were calculated. Report prepared by Efrain Justice RVT RIGHT LOWER EXTREMITY: * Brachial artery: Pressure - 95 mmHg. * High thigh: Pressure - mmHg: Ratio - : PVR waveform - * Low thigh: Pressure - 178 mmHg: Ratio - 1.87 PVR waveform: Pulsatile * Calf: Pressure - 123 mmHg: Ratio - 1.29 PVR waveform: Reduced * Posterior tibial Artery: Pressure - 139 mmHg: Ratio - 1.46 PVR waveform: None * Dorsalis pedis Artery: Pressure - 165 mmHg: Ratio - 1.74 PVR waveform: None * Great toe: Pressure - 0 mmHg: Ratio - 0.00 PVR waveform: None Ankle brachial index (TIFF): 1.74 LEFT LOWER EXTREMITY: * Brachial artery: Pressure - mmHg. * High thigh: Pressure - mmHg: Ratio - : PVR waveform - * Low thigh: Pressure - mmHg: Ratio - PVR waveform: Pulsatile * Calf: Pressure - mmHg: Ratio - PVR waveform: Reduced * Posterior tibial Artery: Pressure - mmHg: Ratio - PVR waveform: None * Dorsalis pedis Artery: Pressure - mmHg: Ratio - PVR waveform: None * Great toe: Pressure - 0 mmHg: Ratio - 0.00 PVR waveform: None Ankle brachial index (TIFF): 0.00 OTHER FINDINGS: Right: Only one cuff used on thigh area due to leg position and poor patient compliance. Left: Only one cuff used on thigh area due to leg position and poor patient compliance .No Audible CW signal obtained from PT and DP IMPRESSION: Right: Elevated ankle-brachial index is unreliable unlikely due to heavy arterial wall calcifications. Left: Unable to calculate ankle-brachial index. Diffusely dampened waveforms through much of the left lower extremity may signify significant small vessel disease.
--- NOTE | 2018-01-28 18:46 | CP.PCM.PN ---
Subjective - Date & Time of Evaluation Date of Evaluation: 01/28/18 Time of Evaluation: 12:00 - Subjective Subjective: Patient reportedly more alert, tolerating diet; still somewhat lethargic to give adequate verbal responses; s/p UF session yesterday in the setting of worsening CXR findings but with increasing pressor requirement; Objective - Vital Signs/Intake and Output Vital Signs (last 24 hours): Temp Pulse Resp BP Pulse Ox 97.4 F L 103 H 16 97/43 L 91 L 01/28/18 16:00 01/28/18 18:00 01/28/18 18:00 01/28/18 18:00 01/28/18 16:00 Intake and Output: 01/28/18 01/28/18 06:59 18:59 Intake Total 690.1 1342.0 Balance 690.1 1342.0 - Medications Medications: Current Medications Albumin Human (Albumin Human 25% (12.5 Gm/50 Ml)) 25 gm IV Q6H [facility] Stop: 01/29/18 03:31 Last Admin: 01/28/18 14:29 Dose: 25 gm Ascorbic Acid (Vitamin C 500 Mg Tab) 500 mg PO DAILY [facility] Last Admin: 01/28/18 09:53 Dose: 500 mg Hydromorphone HCl (Dilaudid) 0.25 mg IVP Q8H PRN PRN Reason: Pain, severe (8-10) Last Admin: 01/28/18 18:36 Dose: 0.25 mg Cefepime HCl (Maxipime Iv 1 Gm Premix) 1 gm in 50 mls @ 100 mls/hr IVPB Q24H [facility] PRN Reason: Protocol Last Admin: 01/28/18 09:54 Dose: 100 mls/hr Norepinephrine Bitartrate 8 mg (/ Sodium Chloride) 258 mls @ 23.22 mls/hr IV .Q11H7M PRN; Protocol; 12 MCG/MIN PRN Reason: TITRATE PER MD ORDER Last Titration: 01/28/18 17:37 Dose: 16 mcg/min, 30.96 mls/hr Levothyroxine Sodium (Synthroid) 25 mcg PO 0600 [facility] Midodrine (Proamatine) 5 mg PO TID [facility] Last Admin: 01/28/18 17:41 Dose: 5 mg Pantoprazole Sodium (Protonix Inj) 40 mg IVP Q12H [facility] Last Admin: 01/28/18 17:39 Dose: 40 mg Sucralfate (Carafate Oral Susp) 1 gm PO TID [facility] Last Admin: 01/28/18 17:39 Dose: 1 gm Vitamin B Complex/Vit C/Folic Acid (Nephro-Sarah) 1 tab PO 0800 [facility] Last Admin: 01/28/18 07:43 Dose: 1 tab - Labs Labs: 01/28/18 06:13 01/28/18 06:13 - Constitutional Appears: Non-toxic, No Acute Distress - Eye Exam Eye Exam: absent: Scleral icterus - Respiratory Exam Respiratory Exam: absent: Respiratory Distress Additional comments: extensive insp rales present b/l; - Cardiovascular Exam Cardiovascular Exam: Tachycardia, Irregular Rhythm, +S1, +S2 - Extremities Exam Additional comments: b/l leg edema extending to thighs; - Neurological Exam Neurological Exam: Alert, Awake Additional comments: somewhat lethargic; - Skin Skin Exam: absent: Cyanosis Additional comments: cool distal feet b/l Assessment and Plan (1) ESRD on hemodialysis Assessment & Plan: Stable electrolyte status; agree with CCM team that patient likely intravascularly volume depleted despite CXR findings; will dialyze today only for clearance with zero UF goal on 3K/2.5Ca/30HCO3 dialysate over 3hrs; Status: Acute (2) Shock Assessment & Plan: Septic shock in the presence of infected L foot, likely needing BKA per vasc surgery; on cefepime, correctly dosed for HD; agree with intravascular volume expansion with IV albumin; Status: Acute (3) Acute hypoxemic respiratory failure Assessment & Plan: With overall worsened CXR findings despite UF for past 2 days; further UF limited by hypotension and persistent pressor need; nevertheless, FIO2 requirement is relatively stable and no definite need for UF on HD today; Status: Acute (4) Chronic kidney disease-mineral and bone disorder Assessment & Plan: Review of recent outpatient labs from last week show oversuppressed PTH for ESRD patient (~120); will hold sensipar and calcitriol; corrected Ca low/normal , no need to replenish; agree with stopping sevelamer for now; Status: Chronic (5) GI bleed Assessment & Plan: Hgb stable, monitor; will give EPO on HD; Status: Acute
[2018-01-28] MEDS ORDERED: HYDROmorphone 0.5 mg/0.5 ml ISec IVP STA (23:47)
[2018-01-29] MEDS: Albumin Human 25% (12.5 gm/50 ml) IV SCH (03:21)
[2018-01-29] MEDS: Levothyroxine 25 MCG TAB PO SCH ×2 (05:28→06:53)
[2018-01-29 06:30] LABS: BASO # 0.1 K/uL (0.0-0.2); BASO % 0.8 % (0.0-2.0); EOS # 0.2 K/uL (0.0-0.7); EOS % 1.1 % (0.0-4.0); LYMPH # 1.1 K/uL (1.0-4.3); LYMPH % 6.3 % (20.0-40.0); MEAN CELL VOLUME 91.7 fL (81.0-99.0); MEAN CORPUSCULAR HEMOGLOBIN 30.4 pg (27.0-31.0); MEAN CORPUSCULAR HGB CONC 33.2 g/dL (33.0-37.0); MEAN PLATELET VOLUME 10.1 fL (7.2-11.7); MONO # 0.6 K/uL (0.0-0.8); MONO % 3.8 % (0.0-10.0); NEUT # 14.8 K/uL (1.8-7.0); NRBC % 0.8 % (0.0-2.0); PLATELET COUNT 71 K/uL (130-400); RBC 2.62 Mil/uL (3.80-5.20); RED CELL DISTRIBUTION WIDTH 15.9 % (11.5-14.5); WHITE BLOOD COUNT 16.8 K/uL (4.8-10.8)
--- NOTE | 2018-01-29 06:41 | CP.PCM.PN ---
Subjective - Date & Time of Evaluation Date of Evaluation: 01/29/18 Time of Evaluation: 06:36 - Subjective Subjective: SURGERY NOTE FOR DR. MCKINLEY 62F seen and examined at bedside. Patient had suicidal ideation overnight, States she has lived her time. States she wants to fall off bed. Continues to have pain in left foot. Objective - Vital Signs/Intake and Output Vital Signs (last 24 hours): Temp Pulse Resp BP Pulse Ox 97.4 F L 100 H 29 H 111/67 86 L 01/29/18 04:00 01/29/18 06:00 01/29/18 06:00 01/29/18 05:11 01/29/18 00:28 Intake and Output: 01/28/18 01/29/18 18:59 06:59 Intake Total 1342.0 873 Output Total 0 Balance 1342.0 873 - Medications Medications: Current Medications Ascorbic Acid (Vitamin C 500 Mg Tab) 500 mg PO DAILY [facility] Last Admin: 01/28/18 09:53 Dose: 500 mg Hydromorphone HCl (Dilaudid) 0.25 mg IVP Q8H PRN PRN Reason: Pain, severe (8-10) Last Admin: 01/28/18 18:36 Dose: 0.25 mg Cefepime HCl (Maxipime Iv 1 Gm Premix) 1 gm in 50 mls @ 100 mls/hr IVPB Q24H [facility] PRN Reason: Protocol Last Admin: 01/28/18 09:54 Dose: 100 mls/hr Norepinephrine Bitartrate 8 mg (/ Sodium Chloride) 258 mls @ 23.22 mls/hr IV .Q11H7M PRN; Protocol; 12 MCG/MIN PRN Reason: TITRATE PER MD ORDER Last Titration: 01/29/18 03:18 Dose: 12.91 mcg/min, 25 mls/hr Levothyroxine Sodium (Synthroid) 25 mcg PO 0600 [facility] Last Admin: 01/29/18 05:28 Dose: 25 mcg Midodrine (Proamatine) 5 mg PO TID [facility] Last Admin: 01/28/18 17:41 Dose: 5 mg Pantoprazole Sodium (Protonix Inj) 40 mg IVP Q12H [facility] Last Admin: 01/29/18 05:28 Dose: 40 mg Sucralfate (Carafate Oral Susp) 1 gm PO TID [facility] Last Admin: 01/28/18 17:39 Dose: 1 gm Vitamin B Complex/Vit C/Folic Acid (Nephro-Sarah) 1 tab PO 0800 [facility] Last Admin: 01/28/18 07:43 Dose: 1 tab - Labs Labs: 01/28/18 06:13 01/28/18 06:13 - Constitutional Appears: Non-toxic, No Acute Distress - Respiratory Exam Respiratory Exam: Clear to Ausculation Bilateral, NORMAL BREATHING PATTERN - Cardiovascular Exam Cardiovascular Exam: REGULAR RHYTHM, +S1, +S2 - GI/Abdominal Exam GI & Abdominal Exam: Soft. absent: Distended, Firm, Guarding, Rigid, Tenderness , Rebound - Extremities Exam Additional comments: left foot dressing CDI - Neurological Exam Neurological Exam: Alert, Awake Assessment and Plan - Assessment and Plan (Free Text) Assessment: 62F with left foot wound, non healing Plan: Medical optimization May need BKA Further recs discuss with Dr. Marguerite Valles, PGY2
[2018-01-29 06:45] LABS: ALB/GLOB RATIO 1.2 (1.0-2.1); ALBUMIN 3.5 g/dL (3.5-5.0); CALCIUM 8.8 mg/dl (8.6-10.4)
[2018-01-29] MEDS: Multivitamin Vitamin B Complex (Nephro-Vite) Tab PO SCH (08:19)
[2018-01-29 09:00] LABS: BANDS 1 % (0-2); BASOPHIL 1 % (0-2); EOSINOPHIL 2 % (0-4); LYMPHOCYTE 6 % (20-40); MONOCYTE 2 % (0-10); NEUTROPHIL 88 % (50-75); NUCLEATED RED BLOOD CELL 1 % (0-0); PLATELET ESTIMATE DECREASED (NORMAL); TOTAL CELLS COUNTED 100
[2018-01-29 09:01] LABS: ANISOCYTOSIS SLIGHT; HYPOCHROMIC SLIGHT; POLYCHROMIC SLIGHT
[2018-01-29 09:02] LABS: TARGET CELLS SLIGHT
[2018-01-29] MEDS: Cefepime IV 1 gm in Dextrose 1 GM/50 ML BAG IVPB SCH (09:23)
[2018-01-29] MEDS: Sucralfate 1 gm/10 ml Oral Susp UD PO SCH ×3 (09:23→17:15)
--- NOTE | 2018-01-29 12:05 | RAD ---
HISTORY: worsening dyspnea COMPARISON: 01/28/2018 at 10:20 a.m. FINDINGS: LUNGS: Stable diffuse opacity right lung and lower left lung. PLEURA: Probable small bilateral pleural effusion. No pneumothorax. Right pleural thickening. CARDIOVASCULAR: Normal heart size. Congestive change noted, increased from prior. Right subclavian central venous catheter. OSSEOUS STRUCTURES: Thoracolumbar spinal fixation. VISUALIZED UPPER ABDOMEN: Normal. OTHER FINDINGS: None. IMPRESSION: Extensive pulmonary opacity with congestive change and small bilateral pleural effusions. Probable pulmonary edema.
--- NOTE | 2018-01-29 14:32 | CP.PCM.PN ---
Subjective - Date & Time of Evaluation Date of Evaluation: 01/29/18 Time of Evaluation: 14:29 - Subjective Subjective: Podiatry progress note: Dr. Mcgee 62 year old female patient seen and evaluated at bedside for wound to left hallux wound and left dorso-lateral foot secondary to lanced blister as well as chronic Bonilla fracture of left foot. Patient is AAOx3 and is in NAD. Denies of any acute overnight events. Expressed suicidal ideation overnight. Patient is currently on one on one. No pedal complains at this time. Objective - Vital Signs/Intake and Output Vital Signs (last 24 hours): Temp Pulse Resp BP Pulse Ox 98.0 F 112 H 22 102/63 96 01/29/18 12:00 01/29/18 14:00 01/29/18 14:00 01/29/18 13:08 01/29/18 12:00 Intake and Output: 01/29/18 01/29/18 06:59 18:59 Intake Total 873 693.3 Output Total 0 0 Balance 873 693.3 - Medications Medications: Current Medications Ascorbic Acid (Vitamin C 500 Mg Tab) 500 mg PO DAILY [facility] Last Admin: 01/29/18 09:22 Dose: 500 mg Hydromorphone HCl (Dilaudid) 0.25 mg IVP Q8H PRN PRN Reason: Pain, severe (8-10) Last Admin: 01/28/18 18:36 Dose: 0.25 mg Cefepime HCl (Maxipime Iv 1 Gm Premix) 1 gm in 50 mls @ 100 mls/hr IVPB Q24H [facility] PRN Reason: Protocol Last Admin: 01/29/18 09:23 Dose: 100 mls/hr Norepinephrine Bitartrate 8 mg (/ Sodium Chloride) 258 mls @ 23.22 mls/hr IV .Q11H7M PRN; Protocol; 12 MCG/MIN PRN Reason: TITRATE PER MD ORDER Last Admin: 01/29/18 10:00 Dose: 15 mcg/min, 29.02 mls/hr Levothyroxine Sodium (Synthroid) 25 mcg PO 0600 [facility] Last Admin: 01/29/18 06:53 Dose: Not Given Midodrine (Proamatine) 5 mg PO TID [facility] Last Admin: 01/29/18 13:42 Dose: 5 mg Pantoprazole Sodium (Protonix Inj) 40 mg IVP Q12H [facility] Last Admin: 01/29/18 05:28 Dose: 40 mg Sucralfate (Carafate Oral Susp) 1 gm PO TID [facility] Last Admin: 01/29/18 13:42 Dose: 1 gm Vitamin B Complex/Vit C/Folic Acid (Nephro-Sarah) 1 tab PO 0800 [facility] Last Admin: 01/29/18 08:19 Dose: 1 tab - Labs Labs: 01/29/18 06:21 01/29/18 06:21 - Constitutional Appears: Well, Non-toxic, No Acute Distress - Extremities Exam Additional comments: B/l LE focused exam Vasc: DP/PT pulses faintly palpable to b/l LE. CFT < 3 seconds to all digits. Skin temperature warm to warm from proximal to distal WNL b/l Neuro: Epicritic and protective sensation grossly intact b/l Derm: RLE - Approximately 0.2 cm x 0.2 cm x 0.1 cm ulceration noted to right lateral heel. Base fibrogranular and improving. No erythema, malodor, drainage, probe to bone, tracking, tunneling or undermining noted. No other clinical signs of infection noted LLE- Olsen grade 2/possible 3 noted at the dorso-lateral aspect of the left foot, necrotic changes noted surrounding the wound, no erythema, wound base is mainly fibrotic with exposed tendons, no mal-odor, no periwound erythema, small amount of bleeding noted from the wound site, no purulence, active serous drainage, no clinical suspicion of active infection at this time, avulsed nail plate noted on the hallux of the left foot MSK: Diffuse pain noted to left foot and leg with palpation, especially at site of blister and left hallux, improved since yesterday. No POP to right foot ulceration. No other gross deformities noted b/l - Neurological Exam Neurological Exam: Alert, Awake, Oriented x3 - Psychiatric Exam Psychiatric exam: Normal Affect, Normal Mood Assessment and Plan - Assessment and Plan (Free Text) Assessment: 62 year old female patient with significant PMHx was evaluated for wound to left hallux wound and left dorso-lateral foot secondary to lanced blister; chronic Bonilla fracture of left foot. Plan: Patient seen and evaluated at bedside Discussed plan with attending Dr. Mcgee Afebrile, WBC 16.8 6//18 Wound Cx left toe: Serratia Marcescens L foot xray 01/16: There is a well defined cortical defect in the proximal fifth metatarsal that is most consistent with an old fracture. There is also periosteal thickening in the third and fourth metatarsal L foot MRI 01/18: Probable OM of first distal phalanx LE arterial duplex: 1. Limited exam due to calcified vessels 2. B/l SFA disease 3. B/l popliteal, trifurcation, and/or tibial disease 4. If clinically indicated , further evaluation with MRA with gadolinium runoff, CTA runoff or conventional arteriogram can be considered LE venous duplex: No sonographic evidence of DVT Left foot lanced blister site dressed with Telfa, DSD, DONNA Continue IV abx per ID Continue pain meds Vascular on board -Patient is scheduled for BKA s/p stabilization Patient to remain NWB to left foot due to chronic Bonilla fracture Podiatry will continue to follow while patient in house
--- NOTE | 2018-01-29 18:04 | CP.CCUPN ---
CCU Subjective - Physician Review Events Since Last Encounter (Free Text): 01/29/18 18:02 patient is somewhat confused Responding Still having low blood pressure Subjective (Free Text): 01/29/18 18:02 received a hemodialysis yesterday Critical Care Time Spent (in minutes): 45 CCU Objective - Vital Signs / Intake & Output Vital Signs (Last 4 hours): Vital Signs Temp Pulse Resp BP Pulse Ox 01/29/18 17:07 109 H 17 101/62 01/29/18 17:00 98 H 23 01/29/18 16:07 101 H 19 110/70 01/29/18 16:00 97.9 F 107 H 19 95 01/29/18 15:08 107 H 26 H 102/60 01/29/18 15:00 107 H 27 H Intake and Output (Last 8hrs): Intake & Output 01/29/18 01/29/18 01/29/18 06:59 14:59 22:59 Intake Total 653 745.9 78.9 Output Total 0 0 0 Balance 653 745.9 78.9 Weight 155 lb 3.287 oz Intake: IV 318 190 Intake, IV Amount 335 215.9 78.9 Right Medial Port 100 Right Proximal Port 235 215.9 78.9 Internal Jugular Oral 340 Output: Urine 0 0 0 Urine, Voided 0 0 0 Other: # Bowel Movements 1 - Physical Exam Narrative Physical Exam (Free Text): 01/29/18 18:03 patient is awake Comfortable Not in any distress Ischemic changes in the legs noted Patient is on hemodialysis will be gettinghemodialysis tomorrow Head: Positive for: Atraumatic, Normocephalic Pupils: Positive for: PERRL Extroacular Muscles: Positive for: EOMI Conjunctiva: Positive for: Normal Ears: Positive for: NORMAL TM Mouth: Positive for: Dry Neck: Positive for: Normal Range of Motion Respiratory/Chest: Positive for: Clear to Auscultation. Negative for: Respiratory Distress Cardiovascular: Positive for: Regular Rate and Rhythm Abdomen: Positive for: Normal Bowel Sounds. Negative for: Tenderness, Distention Upper Extremity: Positive for: Normal ROM, Neurovascularly Intact, Capillary Refill < 2s, Other (Left AVF ) Lower Extremity: Positive for: Other (left lower extremity wound on the dorsal aspect of the foot) Neurological: Positive for: GCS=15, CN II-XII Intact Skin: Positive for: Warm, Dry, Normal Color Psychiatric: Positive for: Oriented x 3 - Medications Active Medications: Active Medications Generic Name Dose Route Start Last Admin Trade Name Jose F PRN Reason Stop Dose Admin Ascorbic Acid 500 mg 01/27/18 10:00 01/29/18 09:22 Vitamin C 500 Mg Tab PO 500 mg DAILY KEYON Administration Hydromorphone HCl 0.25 mg 01/28/18 09:28 01/28/18 18:36 Dilaudid IVP 0.25 mg Q8H PRN Administration Pain, severe (8-10) Cefepime HCl 1 gm in 50 mls @ 100 mls/hr 01/27/18 10:00 01/29/18 09:23 Maxipime Iv 1 Gm Premix IVPB 100 mls/hr Q24H KEYON Administration Protocol Norepinephrine Bitartrate 8 mg 258 mls @ 23.22 mls/hr 01/26/18 17:46 10:00 / Sodium Chloride IV 15 mcg/min .Q11H7M PRN 29.02 mls/hr TITRATE PER MD ORDER Administration Protocol 12 MCG/MIN Levothyroxine Sodium 25 mcg 01/29/18 06:00 01/29/18 06:53 Synthroid PO Not Given 0600 [facility] Midodrine 5 mg 01/26/18 18:00 01/29/18 17:15 Proamatine PO 5 mg TID KEYON Administration Pantoprazole Sodium 40 mg 01/26/18 17:30 01/29/18 17:14 Protonix Inj IVP 40 mg Q12H KEYON Administration Sucralfate 1 gm 01/26/18 18:00 01/29/18 17:15 Carafate Oral Susp PO 1 gm TID KEYON Administration Vitamin B Complex/Vit C/Folic Acid 1 tab 01/28/18 08:00 01/29/18 08:19 Nephro-Sarah PO 1 tab 0800 KEYON Administration - Patient Studies Lab Studies: Lab Studies 01/29/18 01/29/18 Range/Units 06:21 06:21 WBC 16.8 H (4.8-10.8) K/uL RBC 2.62 L (3.80-5.20) Mil/uL Hgb 8.0 L (11.0-16.0) g/dL Hct 24.0 L (34.0-47.0) % MCV 91.7 (81.0-99.0) fL MCH 30.4 (27.0-31.0) pg MCHC 33.2 (33.0-37.0) g/dL RDW 15.9 H (11.5-14.5) % Plt Count 71 L D (130-400) K/uL MPV 10.1 (7.2-11.7) fL Neut % (Auto) 88.0 H (50.0-75.0) % Lymph % (Auto) 6.3 L (20.0-40.0) % [place] % (Auto) 3.8 (0.0-10.0) % Eos % (Auto) 1.1 (0.0-4.0) % Baso % (Auto) 0.8 (0.0-2.0) % Neut # (Auto) 14.8 H (1.8-7.0) K/uL Lymph # (Auto) 1.1 (1.0-4.3) K/uL [place] # (Auto) 0.6 (0.0-0.8) K/uL Eos # (Auto) 0.2 (0.0-0.7) K/uL Baso # (Auto) 0.1 (0.0-0.2) K/uL Neutrophils % (Manual) 88 H (50-75) % Band Neutrophils % 1 (0-2) % Lymphocytes % (Manual) 6 L (20-40) % Monocytes % (Manual) 2 (0-10) % Eosinophils % (Manual) 2 (0-4) % Basophils % (Manual) 1 (0-2) % Nucleated RBC % 1 H (0-0) % Platelet Estimate Decreased L (NORMAL) Polychromasia Slight Hypochromasia (manual) Slight Anisocytosis (manual) Slight Macrocytosis (manual) Slight Target Cells Slight Sodium 143 (132-148) mmol/L Potassium 4.0 (3.6-5.2) mmol/L Chloride 102 (98-107) mmol/L Carbon Dioxide 27 (22-30) mmol/L Anion Gap 18 (10-20) BUN 58 H (7-17) mg/dL Creatinine 3.1 H (0.7-1.2) mg/dL Est GFR ( Amer) 18 Est GFR (Non-Af Amer) 15 Random Glucose 97 (65-105) mg/dL Calcium 8.8 (8.6-10.4) mg/dl Phosphorus 3.3 (2.5-4.5) mg/dL Magnesium 1.8 (1.6-2.3) mg/dL Total Bilirubin 1.2 (0.2-1.3) mg/dL AST 22 (14-36) U/L ALT 33 (9-52) U/L Alkaline Phosphatase 113 (38-126) U/L Total Protein 6.4 (6.3-8.3) g/dL Albumin 3.5 (3.5-5.0) g/dL Globulin 2.9 (2.2-3.9) gm/dL Albumin/Globulin Ratio 1.2 (1.0-2.1) Laboratory Results - last 24 hr 01/29/18 01/29/18 06:21 06:21 WBC 16.8 H RBC 2.62 L Hgb 8.0 L Hct 24.0 L MCV 91.7 MCH 30.4 MCHC 33.2 RDW 15.9 H Plt Count 71 L D MPV 10.1 Neut % (Auto) 88.0 H Lymph % (Auto) 6.3 L [place] % (Auto) 3.8 Eos % (Auto) 1.1 Baso % (Auto) 0.8 Neut # (Auto) 14.8 H Lymph # (Auto) 1.1 [place] # (Auto) 0.6 Eos # (Auto) 0.2 Baso # (Auto) 0.1 Neutrophils % (Manual) 88 H Band Neutrophils % 1 Lymphocytes % (Manual) 6 L Monocytes % (Manual) 2 Eosinophils % (Manual) 2 Basophils % (Manual) 1 Nucleated RBC % 1 H Platelet Estimate Decreased L Polychromasia Slight Hypochromasia (manual) Slight Anisocytosis (manual) Slight Macrocytosis (manual) Slight Target Cells Slight Sodium 143 Potassium 4.0 Chloride 102 Carbon Dioxide 27 Anion Gap 18 BUN 58 H Creatinine 3.1 H Est GFR ( Amer) 18 Est GFR (Non-Af Amer) 15 Random Glucose 97 Calcium 8.8 Phosphorus 3.3 Magnesium 1.8 Total Bilirubin 1.2 AST 22 ALT 33 Alkaline Phosphatase 113 Total Protein 6.4 Albumin 3.5 Globulin 2.9 Albumin/Globulin Ratio 1.2 Review of Systems - Review of Systems Review of Systems: pain in the lower extremities noted Complaining of no distress Critical Care Progress Note - Nutrition Nutrition: Nutrition Category Date Time Status Liquid Diet [DIET] Diets 01/27/18 Lunch Active Assessment/Plan - Assessment and Plan (Free Text) Assessment: patient with the sepsis, hemodialysis, missed dialysis congestive heart failure atrial fibrillation patient has a septic shock. ontinue the current treatment
--- NOTE | 2018-01-29 19:26 | CP.PCM.PN ---
Subjective - Date & Time of Evaluation Date of Evaluation: 01/29/18 Time of Evaluation: 11:30 - Subjective Subjective: Patient reportedly with more labored breathing today although patient herself reports breathing well; not eating much; wanting to go home; Objective - Vital Signs/Intake and Output Vital Signs (last 24 hours): Temp Pulse Resp BP Pulse Ox 97.9 F 107 H 26 H 103/65 95 01/29/18 16:00 01/29/18 18:07 01/29/18 18:07 01/29/18 18:07 01/29/18 16:00 Intake and Output: 01/29/18 01/30/18 18:59 06:59 Intake Total 851.1 26.3 Output Total 0 0 Balance 851.1 26.3 - Medications Medications: Current Medications Ascorbic Acid (Vitamin C 500 Mg Tab) 500 mg PO DAILY [facility] Last Admin: 01/29/18 09:22 Dose: 500 mg Hydromorphone HCl (Dilaudid) 0.25 mg IVP Q8H PRN PRN Reason: Pain, severe (8-10) Last Admin: 01/28/18 18:36 Dose: 0.25 mg Cefepime HCl (Maxipime Iv 1 Gm Premix) 1 gm in 50 mls @ 100 mls/hr IVPB Q24H KEYON PRN Reason: Protocol Last Admin: 01/29/18 09:23 Dose: 100 mls/hr Norepinephrine Bitartrate 8 mg (/ Sodium Chloride) 258 mls @ 23.22 mls/hr IV .Q11H7M PRN; Protocol; 12 MCG/MIN PRN Reason: TITRATE PER MD ORDER Last Admin: 01/29/18 10:00 Dose: 15 mcg/min, 29.02 mls/hr Levothyroxine Sodium (Synthroid) 25 mcg PO 0600 [facility] Last Admin: 01/29/18 06:53 Dose: Not Given Midodrine (Proamatine) 5 mg PO TID [facility] Last Admin: 01/29/18 17:15 Dose: 5 mg Pantoprazole Sodium (Protonix Inj) 40 mg IVP Q12H [facility] Last Admin: 01/29/18 17:14 Dose: 40 mg Sucralfate (Carafate Oral Susp) 1 gm PO TID [facility] Last Admin: 01/29/18 17:15 Dose: 1 gm Vitamin B Complex/Vit C/Folic Acid (Nephro-Sarah) 1 tab PO 0800 KEYON Last Admin: 01/29/18 08:19 Dose: 1 tab - Labs Labs: 01/29/18 06:21 18 06:21 - Constitutional Appears: Non-toxic, No Acute Distress - Eye Exam Eye Exam: absent: Scleral icterus - ENT Exam ENT Exam: Mucous Membranes Moist - Respiratory Exam Respiratory Exam: absent: Respiratory Distress Additional comments: extensive b/l rales; - Cardiovascular Exam Cardiovascular Exam: Tachycardia, Irregular Rhythm, +S1, +S2 - GI/Abdominal Exam GI & Abdominal Exam: Soft. absent: Distended, Tenderness - Extremities Exam Additional comments: moderate leg edema extending to thighs; - Neurological Exam Neurological Exam: Alert, Awake - Psychiatric Exam Psychiatric exam: absent: Agitated - Skin Skin Exam: Warm. absent: Cyanosis Assessment and Plan (1) ESRD on hemodialysis Assessment & Plan: Stable electrolyte status s/p HD yesterday; however, CXR still indicative of volume overload; no UF done yesterday due to hypotension and were giving volume expansion instead; will dialyze tomorrow with goal 1.5L UF; Status: Acute (2) Shock Assessment & Plan: Septic shock in the setting of L foot OM; vasc surg recommending possible BKA; continue to dose antibiotics for HD; Status: Acute (3) Acute hypoxemic respiratory failure Assessment & Plan: Relatively stable FIO2 requirement despite CXR findings; nevertheless, would like to avoid intubation; UF on HD tomorrow as above; Status: Acute (4) Chronic kidney disease-mineral and bone disorder Assessment & Plan: Ca improved; holding calcitriol and sensipar as mentioned yesterday due to over- suppressed PTH; monitor phos, restart binders if increasing; Status: Chronic (5) GI bleed Assessment & Plan: Hgb drop since yesterday; giving EPO on HD; Status: Acute
[2018-01-30] MEDS ORDERED: HYDROmorphone 0.5 mg/0.5 ml ISec IVP STA (01:08)
[2018-01-30] MEDS: Levothyroxine 25 MCG TAB PO SCH (05:46)
[2018-01-30 06:27] LABS: BASO # 0.1 K/uL (0.0-0.2); BASO % 0.7 % (0.0-2.0); EOS % 0.1 % (0.0-4.0); HEMOGLOBIN 7.9 g/dL (11.0-16.0); LYMPH # 1.3 K/uL (1.0-4.3); MEAN CELL VOLUME 93.9 fL (81.0-99.0); MEAN CORPUSCULAR HEMOGLOBIN 30.3 pg (27.0-31.0); MEAN CORPUSCULAR HGB CONC 32.3 g/dL (33.0-37.0); MEAN PLATELET VOLUME 10.6 fL (7.2-11.7); MONO % 5.7 % (0.0-10.0); NEUT # 14.2 K/uL (1.8-7.0); NEUT % 85.5 % (50.0-75.0); NRBC % 1.8 % (0.0-2.0); PLATELET COUNT 102 K/uL (130-400); RBC 2.59 Mil/uL (3.80-5.20); RED CELL DISTRIBUTION WIDTH 16.2 % (11.5-14.5); WHITE BLOOD COUNT 16.7 K/uL (4.8-10.8)
[2018-01-30 06:51] LABS: ALB/GLOB RATIO 1.1 (1.0-2.1); ALBUMIN 3.4 g/dL (3.5-5.0); CALCIUM 9.2 mg/dl (8.6-10.4)
--- NOTE | 2018-01-30 07:41 | PN ---
DATE: 01/28/2018 SUBJECTIVE: The patient seen and examined at the bedside in the unit, still lethargic. The patient has mostly been in that status but that a little bit more awake and responsive, is not able to give review of systems. Looks like no fever, no chills. No hematuria, no hematochezia. PHYSICAL EXAMINATION: VITAL SIGNS: Pulse 111, respiratory rate 18, blood pressure 120/80 , pulse oximetry 95. HEENT: Head normocephalic and atraumatic. Eyes, PERRLA. Extraocular muscles intact. Conjunctivae clear. Nose patent. NECK: Supple. No carotid bruits. No JVD or thyromegaly. CHEST: Bilaterally symmetrical. HEART: S1, S2 positive. LUNGS: Clear to auscultation. ABDOMEN: Soft. Bowel sounds present. No organomegaly. EXTREMITIES: Trace edema. No cyanosis. NEUROLOGIC: The patient is awake, alert, but looks like little bit confused. MEDICATIONS: Ascorbic acid, Calcitrol, Sensipar, Dilaudid, Maxipime, norepinephrine, levothyroxine, Midodrine, Protonix, sucralfate, vitamin B complex. LABORATORY DATA: White blood cell is 20.4, hemoglobin 9.5, hematocrit 29.3, platelets 91. Sodium 145, potassium 4.6, BUN 93, creatinine 4.2. Liver function within normal limits. ASSESSMENT AND PLAN: The patient is a 62-year-old lady with past medical history of atrial fibrillation, on Coumadin; severe coronary artery disease; endstage renal dialysis, on hemodialysis three times a week; hypothyroidism; multiple myeloma, status post chemotherapy and radiation therapy; left hallux infected ulcers with osteomyelitis with serratia growing and was put on cefepime to complete 4 to 6 weeks. The patient has history of hemorrhagic shock and septic shock given 3 units of packed RBC, 2 units of FFP, bolus IV fluids, status post EGD which showed ulcers, no active bleeding. The [facility], then finally transferred to [facility] because of dialysis problem. The patient is still on Levophed, hypotensive septic versus hemorrhagic shock, atrial fibrillation. Echocardiogram showed ejection fraction of 70%, little bit fluid overload, getting BiPAP after dialysis section. EGD done in [facility] showed nonbleeding gastric and esophageal ulcers. No overt signs of bleeding seen on EGD. The patient needs colonoscopy after stabilization. We will continue present treatment and repeat labs. We will follow. Vanda Marsh MD MTDD
[2018-01-30] MEDS: Multivitamin Vitamin B Complex (Nephro-Vite) Tab PO SCH (08:04)
[2018-01-30 08:56] LABS: LYMPHOCYTE 6 % (20-40); MONOCYTE 8 % (0-10); NEUTROPHIL 86 % (50-75); NUCLEATED RED BLOOD CELL 4 % (0-0); PLATELET ESTIMATE DECREASED (NORMAL); TOTAL CELLS COUNTED 100
[2018-01-30 08:57] LABS: ANISOCYTOSIS SLIGHT; HYPOCHROMIC MODERATE; LARGE PLATELETS PRESENT; MICROCYTOSIS SLIGHT; OVALOCYTES SLIGHT; POIKILOCYTOSIS SLIGHT; TARGET CELLS SLIGHT
[2018-01-30] MEDS ORDERED: Epoetin Alfa 10,000 unit/ml Dialysis IV ONE (09:27)
[2018-01-30] MEDS: Sucralfate 1 gm/10 ml Oral Susp UD PO SCH ×3 (09:59→17:36)
[2018-01-30] MEDS: HYDROmorphone 0.5 mg/0.5 ml ISec IVP PRN (10:22)
--- NOTE | 2018-01-30 11:42 | CP.CCUPN ---
CCU Subjective - Physician Review Subjective (Free Text): Patient was seen and examined at bedside. Patient seems more agitated. Currently on 1:1 for suicide watch. CCU Objective - Vital Signs / Intake & Output Vital Signs (Last 4 hours): Vital Signs Temp Pulse Pulse Resp BP BP Pulse Ox 01/30/18 11:08 83/56 L 01/30/18 11:00 97 F L 91 H 17 83/56 L 01/30/18 10:53 86 15 90/48 L 01/30/18 10:45 96.8 F L 87 19 90/48 L 01/30/18 10:38 85 22 80/42 L 80/47 L 01/30/18 10:30 97.2 F L 83 20 87/47 L 01/30/18 10:23 73 15 87/47 L 01/30/18 10:08 90 18 101/52 L 101/52 L 01/30/18 10:00 105 H 19 01/30/18 09:53 107 H 18 95/65 L 95/65 L 01/30/18 09:39 89 15 103/64 01/30/18 09:38 103/64 01/30/18 09:23 91 H 18 94/73 L 94/73 L 01/30/18 09:08 97 F L 84 98 H 17 80/54 L 80/54 L 96 01/30/18 09:00 92 H 17 01/30/18 08:08 116 H 18 100/62 01/30/18 08:00 97.4 F L 77 20 Intake and Output (Last 8hrs): Intake & Output 01/29/18 01/30/18 01/30/18 22:59 06:59 14:59 Intake Total 468.4 473.5 159.3 Output Total 0 0 Balance 468.4 473.5 159.3 Weight 190 lb Intake: IV 258 258 Intake, IV Amount 210.4 215.5 159.3 Right Proximal Port 210.4 215.5 159.3 Internal Jugular Blood Product 0 Red Blood Cells Cpd As1 0 Lr Unit [id number] Output: Urine 0 0 Urine, Voided 0 0 - Physical Exam Head: Positive for: Atraumatic, Normocephalic Pupils: Positive for: PERRL Extroacular Muscles: Positive for: EOMI Conjunctiva: Positive for: Normal Ears: Positive for: NORMAL TM Mouth: Positive for: Dry Neck: Positive for: Normal Range of Motion Respiratory/Chest: Positive for: Clear to Auscultation. Negative for: Respiratory Distress Cardiovascular: Positive for: Regular Rate and Rhythm Abdomen: Positive for: Normal Bowel Sounds. Negative for: Tenderness, Distention Upper Extremity: Positive for: Normal ROM, Neurovascularly Intact, Capillary Refill < 2s, Other (Left AVF ) Lower Extremity: Positive for: Other (left lower extremity wound on the dorsal aspect of the foot) Neurological: Positive for: GCS=15, CN II-XII Intact Skin: Positive for: Warm, Dry, Normal Color Psychiatric: Positive for: Oriented x 3 - Medications Active Medications: Active Medications Generic Name Dose Route Start Last Admin Trade Name Freq PRN Reason Stop Dose Admin Ascorbic Acid 500 mg 01/27/18 10:00 01/29/18 09:22 Vitamin C 500 Mg Tab PO 500 mg DAILY KEYON Administration Hydromorphone HCl 0.25 mg 01/28/18 09:28 01/30/18 10:22 Dilaudid IVP 0.25 mg Q8H PRN Administration Pain, severe (8-10) Cefepime HCl 1 gm in 50 mls @ 100 mls/hr 01/27/18 10:00 01/29/18 09:23 Maxipime Iv 1 Gm Premix IVPB 100 mls/hr Q24H KEYON Administration Protocol Norepinephrine Bitartrate 8 mg 258 mls @ 23.22 mls/hr 01/26/18 17:46 07:09 / Sodium Chloride IV 14.52 mcg/min .Q11H7M PRN 28.1 mls/hr TITRATE PER MD ORDER Administration Protocol 12 MCG/MIN Levothyroxine Sodium 25 mcg 01/29/18 06:00 01/30/18 05:46 Synthroid PO 25 mcg 0600 KEYON Administration Midodrine 5 mg 01/26/18 18:00 01/30/18 09:58 Proamatine PO Not Given TID KEYON Pantoprazole Sodium 40 mg 01/26/18 17:30 01/30/18 05:46 Protonix Inj IVP 40 mg Q12H KEYON Administration Sucralfate 1 gm 01/26/18 18:00 01/30/18 09:59 Carafate Oral Susp PO Not Given TID KEYON Vitamin B Complex/Vit C/Folic Acid 1 tab 01/28/18 08:00 01/30/18 08:04 Nephro-Sarah PO 1 tab 0800 KEYON Administration - Patient Studies Lab Studies: Lab Studies 01/30/18 01/30/18 01/30/18 Range/Units 08:10 06:22 06:22 WBC 16.7 H (4.8-10.8) K/uL RBC 2.59 L (3.80-5.20) Mil/uL Hgb 7.9 L (11.0-16.0) g/dL Hct 24.3 L (34.0-47.0) % MCV 93.9 D (81.0-99.0) fL MCH 30.3 (27.0-31.0) pg MCHC 32.3 L (33.0-37.0) g/dL RDW 16.2 H (11.5-14.5) % Plt Count 102 L D (130-400) K/uL MPV 10.6 (7.2-11.7) fL Neut % (Auto) 85.5 H (50.0-75.0) % Lymph % (Auto) 8.0 L (20.0-40.0) % [place] % (Auto) 5.7 (0.0-10.0) % Eos % (Auto) 0.1 (0.0-4.0) % Baso % (Auto) 0.7 (0.0-2.0) % Neut # (Auto) 14.2 H (1.8-7.0) K/uL Lymph # (Auto) 1.3 (1.0-4.3) K/uL [place] # (Auto) 1.0 H (0.0-0.8) K/uL Eos # (Auto) 0.0 (0.0-0.7) K/uL Baso # (Auto) 0.1 (0.0-0.2) K/uL Neutrophils % (Manual) 86 H (50-75) % Lymphocytes % (Manual) 6 L (20-40) % Monocytes % (Manual) 8 (0-10) % Nucleated RBC % 4 H (0-0) % Platelet Estimate Decreased L (NORMAL) Large Platelets Present Hypochromasia (manual) Moderate Poikilocytosis (manual Slight Anisocytosis (manual) Slight Microcytosis (manual) Slight Target Cells Slight Ovalocytes Slight Sodium 143 (132-148) mmol/L Potassium 4.1 (3.6-5.2) mmol/L Chloride 103 (98-107) mmol/L Carbon Dioxide 25 (22-30) mmol/L Anion Gap 19 (10-20) BUN 75 H (7-17) mg/dL Creatinine 4.0 H (0.7-1.2) mg/dL Est GFR ( Amer) 14 Est GFR (Non-Af Amer) 11 Random Glucose 99 (65-105) mg/dL Calcium 9.2 (8.6-10.4) mg/dl Phosphorus 4.2 (2.5-4.5) mg/dL Magnesium 1.9 (1.6-2.3) mg/dL Total Bilirubin 1.2 (0.2-1.3) mg/dL AST 29 (14-36) U/L ALT 35 (9-52) U/L Alkaline Phosphatase 115 (38-126) U/L Total Protein 6.4 (6.3-8.3) g/dL Albumin 3.4 L (3.5-5.0) g/dL Globulin 3.0 (2.2-3.9) gm/dL Albumin/Globulin Ratio 1.1 (1.0-2.1) Blood Type O POSITIVE Antibody Screen Negative Laboratory Results - last 24 hr 01/30/18 01/30/18 01/30/18 06:22 06:22 08:10 WBC 16.7 H RBC 2.59 L Hgb 7.9 L Hct 24.3 L MCV 93.9 D MCH 30.3 MCHC 32.3 L RDW 16.2 H Plt Count 102 L D MPV 10.6 Neut % (Auto) 85.5 H Lymph % (Auto) 8.0 L [place] % (Auto) 5.7 Eos % (Auto) 0.1 Baso % (Auto) 0.7 Neut # (Auto) 14.2 H Lymph # (Auto) 1.3 [place] # (Auto) 1.0 H Eos # (Auto) 0.0 Baso # (Auto) 0.1 Neutrophils % (Manual) 86 H Lymphocytes % (Manual) 6 L Monocytes % (Manual) 8 Nucleated RBC % 4 H Platelet Estimate Decreased L Large Platelets Present Hypochromasia (manual) Moderate Poikilocytosis (manual Slight Anisocytosis (manual) Slight Microcytosis (manual) Slight Target Cells Slight Ovalocytes Slight Sodium 143 Potassium 4.1 Chloride 103 Carbon Dioxide 25 Anion Gap 19 BUN 75 H Creatinine 4.0 H Est GFR ( Amer) 14 Est GFR (Non-Af Amer) 11 Random Glucose 99 Calcium 9.2 Phosphorus 4.2 Magnesium 1.9 Total Bilirubin 1.2 AST 29 ALT 35 Alkaline Phosphatase 115 Total Protein 6.4 Albumin 3.4 L Globulin 3.0 Albumin/Globulin Ratio 1.1 Blood Type O POSITIVE Antibody Screen Negative Critical Care Progress Note - Nutrition Nutrition: Nutrition Category Date Time Status Liquid Diet [DIET] Diets 01/27/18 Lunch Active Assessment/Plan - Assessment and Plan (Free Text) Assessment: 62 year old female with PMHx of A-fib on warfarin, severe PAD, ESRD/anuric (HD TTS; last dialysis Tuesday), hypothyroidism, Multiple Myeloma S/P chemotherapy and radiation therapy, left hallux infected ulcer with osteomyelitis with Serratia growing (01/16) and was put on Cefepime to complete 4-6 weeks ( discharged 01/20), she was admitted 01/25 with hemorrhagic shock and septic shock, given 3u PRBC, and 2U FFP, 2L bolus, s/p EGD 01/26 which showed ulcers, no active bleeding. Patient transferred to [facility] for further care and for dialysis. Currently the patient is still on Levophed. She is refusing dialysis and left BKA. Plan: Neuro: AAO x 3 Cardio: A: Hypotensive septic versus hemorrhagic shock - Levophed drip - Midodrine TID A: Atrial Fib - On Warfarin - HELD - ECHO 01/17: LVEF 70%, RV volume overload, mild LVH, Severe TR, moderate pulm HTN Pulm: A: Fluid Overload - Will be placed on BiPAP after dialysis sessions GI: A: GIB - [place] [facility] [place] Showed non-bleeding gastric and esophageal ulcers. No overt signs of bleeding seen on EGD. Patient will need a colonoscopy. - Sucralfate TID, Protonix BID - Renal Diet Renal: A: ESRD/anuric (HD TTS; L AVF; last dialysis Tuesday) Dr. Preciado consulted - Received dialysis 01/30 due to fluid overload noted on CXR and on exam Endo: A: Hypothyroidism - Resumed Synthroid ID: A: Septic/ Hemorrhagic Shock - BC 01/25 - drawn from [place] no growth to date A: Left hallux infected ulcer with Osteomyelitis Podiatry consulted Dr. Mcgee and Wound Care consulted - Serratia growing (01/16) and was put on Cefepime to complete 4-6 weeks ( discharged 01/20) - Repeat Wound culture Serratia - continue with Cefepime Heme/ Onc: A: Anemia 2/2 acute blood loss - Transfused total 3u PRBC and 2U FFP - at [facility] - Transfused 1 unit 01/30 during dialysis - Procrit TTS - Continue to monitor A: Multiple Myeloma S/P chemotherapy and radiation therapy Vascular: A: Severe PVD Vascular Surgery consulted - Dr. Fernandes - Angiogram done in [place] in December revealed non occlusions of vessels in lower extremity - Arterial PVRs ordered - Likely left BKA Prophylaxis: - Protonix BID - SCDs, VTE c/i 2/2 Osteo, PVD, and GI Bleed - PT/OT DW Dr. Daley, Brionna Raphael DO, PGY-1
[2018-01-30] MEDS: Cefepime IV 1 gm in Dextrose 1 GM/50 ML BAG IVPB SCH (12:59)
--- NOTE | 2018-01-30 14:09 | CP.PCM.PN ---
Subjective - Date & Time of Evaluation Date of Evaluation: 01/30/18 Time of Evaluation: 14:06 - Subjective Subjective: Surgery Pt seen and examined with Dr. Everett. Pt still on levephed. Refusing surgery. Denies fever, nausea. Pain controlled. Objective - Vital Signs/Intake and Output Vital Signs (last 24 hours): Temp Pulse Resp BP Pulse Ox 97.6 F 94 H 13 101/57 L 96 01/30/18 12:10 01/30/18 14:00 01/30/18 14:00 01/30/18 13:59 01/30/18 12:10 Intake and Output: 01/30/18 01/30/18 06:59 18:59 Intake Total 578.7 897.3 Output Total 0 0 Balance 578.7 897.3 - Medications Medications: Current Medications Ascorbic Acid (Vitamin C 500 Mg Tab) 500 mg PO DAILY [facility] Last Admin: 01/30/18 13:00 Dose: 500 mg Epoetin Melvin (Procrit) 10,000 unit IV TTS [facility] Hydromorphone HCl (Dilaudid) 0.25 mg IVP Q8H PRN PRN Reason: Pain, severe (8-10) Last Admin: 01/30/18 10:22 Dose: 0.25 mg Cefepime HCl (Maxipime Iv 1 Gm Premix) 1 gm in 50 mls @ 100 mls/hr IVPB Q24H [facility] PRN Reason: Protocol Last Admin: 01/30/18 12:59 Dose: 100 mls/hr Norepinephrine Bitartrate 8 mg (/ Sodium Chloride) 258 mls @ 23.22 mls/hr IV .Q11H7M PRN; Protocol; 12 MCG/MIN PRN Reason: TITRATE PER MD ORDER Last Admin: 01/30/18 13:58 Dose: 20 mcg/min, 38.7 mls/hr Levothyroxine Sodium (Synthroid) 25 mcg PO 0600 [facility] Last Admin: 01/30/18 05:46 Dose: 25 mcg Midodrine (Proamatine) 5 mg PO TID [facility] Last Admin: 01/30/18 13:01 Dose: 5 mg Pantoprazole Sodium (Protonix Inj) 40 mg IVP Q12H [facility] Last Admin: 01/30/18 05:46 Dose: 40 mg Sucralfate (Carafate Oral Susp) 1 gm PO TID [facility] Last Admin: 01/30/18 13:00 Dose: 1 gm Vitamin B Complex/Vit C/Folic Acid (Nephro-Sarah) 1 tab PO 0800 [facility] Last Admin: 01/30/18 08:04 Dose: 1 tab - Labs Labs: 01/30/18 06:22 01/30/18 06:22 - Constitutional Appears: Non-toxic - Head Exam Head Exam: ATRAUMATIC, NORMAL INSPECTION, NORMOCEPHALIC - Eye Exam Eye Exam: EOMI, Normal appearance, PERRL Pupil Exam: NORMAL ACCOMODATION, PERRL - ENT Exam ENT Exam: Mucous Membranes Moist, Normal Exam - Neck Exam Neck Exam: Full ROM, Normal Inspection. absent: Lymphadenopathy - Respiratory Exam Respiratory Exam: Clear to Ausculation Bilateral, NORMAL BREATHING PATTERN - Cardiovascular Exam Cardiovascular Exam: REGULAR RHYTHM, +S1, +S2. absent: Murmur - GI/Abdominal Exam GI & Abdominal Exam: Soft, Normal Bowel Sounds. absent: Tenderness - Extremities Exam Extremities Exam: Tenderness. absent: Normal Inspection Additional comments: Dressing C/D/I. - Back Exam Back Exam: NORMAL INSPECTION - Neurological Exam Neurological Exam: Alert, Awake, CN II-XII Intact, Oriented x3 - Psychiatric Exam Psychiatric exam: Flat Affect, Suicidal Ideation - Skin Skin Exam: Dry, Warm Assessment and Plan - Assessment and Plan (Free Text) Assessment: 62F with left foot wound, non healing Plan: Medical optimization May need BKA: Pt refusing surgery at this time. Medical management discussed with Dr. Everett
--- NOTE | 2018-01-30 14:48 | PN ---
DATE: 01/29/2018 SUBJECTIVE: The patient was seen and examined at bedside on 01/29/2018, looking comfortable. No nausea, vomiting, or diarrhea. Expressed suicidal ideation overnight. Patient is continued on one-to-one. Has wound to the left hallux and left dorsolateral foot, certainly to [place] the blisters, has a chronic Bonilla fracture of the left foot. No fever, no chills. PHYSICAL EXAMINATION: VITAL SIGNS: Temperature 98, pulse 112, respiratory rate 22, blood pressure 102/53, pulse oximetry 96%. HEENT: Head normocephalic, atraumatic. Eyes PERRLA. Extraocular muscles intact. Conjunctivae clear. Nose patent. Mucous membranes moist. NECK: Supple. No carotid bruit, JVD, or thyromegaly. CHEST Bilaterally symmetrical. HEART: S1 and S2 positive. LUNGS: Clear to auscultation. ABDOMEN: Soft. Bowel sounds positive. No organomegaly. EXTREMITIES: The patient has dressing on the feet. Upper extremities, no edema, no cyanosis. NEUROLOGIC: The patient is awake, alert. Follows simples commands. MEDICATIONS: Vitamin C, Dilaudid, cefepime, levothyroxine, Protonix, Carafate. LABS: White blood vessels 15.8, hemoglobin 8.0, hematocrit 24.0, platelets 71. Sodium 143, potassium 4.0, BUN 15, creatinine 3.1, glucose 97. ASSESSMENT AND PLAN: Ms. Caryn Card is a 62-year-old lady with leukocytosis, anemia, thrombocytopenia, adrenal insufficiency. Has wound to the left hallux. Chronic Bonilla fracture of the left foot. Podiatry is on the case. Dr. Preciado is on the case for renal insufficiency. History of gastrointestinal bleed, hemoglobin dropped since yesterday, given echo, on hemodialysis. Adrenal disease. Septic shock in the setting of left foot osteomyelitis. Surgical recommendation, possibly below knee amputation. Continue to dose antibiotics for hemodialysis. Acute hypoxemia. Respiratory failure. Relatively stable. FiO2 requirements despite chest x-ray finding. Provide intubation. Chronic kidney disease. Mineral and bone disorder. Seen by Dr. Daley, mobile engineer. Missed dialysis. Congestive heart failure. Atrial fibrillation. Continue present treatment and gastrointestinal prophylaxis with labs. Vanda Marsh MD [facility] # [id number] DANYEL
[2018-01-30] MEDS ORDERED: Vancomycin 1 gm/NS 200 ml 1 GM/200 ML BAG IVPB STA (15:02)
--- NOTE | 2018-01-30 19:41 | CP.PCM.PN ---
Subjective - Date & Time of Evaluation Date of Evaluation: 01/30/18 Time of Evaluation: 13:00 - Subjective Subjective: Patient agitated at times; thrashing around during HD session; very little verbal response but has been telling nursing that she just wants to go home; Objective - Vital Signs/Intake and Output Vital Signs (last 24 hours): Temp Pulse Resp BP Pulse Ox 97.2 F L 123 H 26 H 98/65 L 85 L 01/30/18 16:00 01/30/18 18:00 01/30/18 18:00 01/30/18 17:59 01/30/18 16:00 Intake and Output: 01/30/18 01/31/18 18:59 06:59 Intake Total 1694.8 Output Total 1500 Balance 194.8 - Medications Medications: Current Medications Ascorbic Acid (Vitamin C 500 Mg Tab) 500 mg PO DAILY [facility] Last Admin: 01/30/18 13:00 Dose: 500 mg Epoetin Melvin (Procrit) 10,000 unit IV TTS [facility] Hydromorphone HCl (Dilaudid) 0.25 mg IVP Q8H PRN PRN Reason: Pain, severe (8-10) Last Admin: 01/30/18 10:22 Dose: 0.25 mg Cefepime HCl (Maxipime Iv 1 Gm Premix) 1 gm in 50 mls @ 100 mls/hr IVPB Q24H [facility] PRN Reason: Protocol Last Admin: 01/30/18 12:59 Dose: 100 mls/hr Norepinephrine Bitartrate 8 mg (/ Sodium Chloride) 258 mls @ 23.22 mls/hr IV .Q11H7M PRN; Protocol; 12 MCG/MIN PRN Reason: TITRATE PER MD ORDER Last Admin: 01/30/18 13:58 Dose: 20 mcg/min, 38.7 mls/hr Levothyroxine Sodium (Synthroid) 25 mcg PO 0600 [facility] Last Admin: 01/30/18 05:46 Dose: 25 mcg Midodrine (Proamatine) 5 mg PO TID [facility] Last Admin: 01/30/18 17:36 Dose: 5 mg Pantoprazole Sodium (Protonix Ec Tab) 40 mg PO Q12H [facility] Saccharomyces Boulardii (Florastor) 250 mg PO Q12 [facility] Sucralfate (Carafate Oral Susp) 1 gm PO TID [facility] Last Admin: 01/30/18 17:36 Dose: 1 gm Vitamin B Complex/Vit C/Folic Acid (Nephro-Sarah) 1 tab PO 0800 [facility] Last Admin: 01/30/18 08:04 Dose: 1 tab - Labs Labs: 01/30/18 06:22 01/30/18 06:22 - Constitutional Appears: Cachectic, Chronically Ill - Eye Exam Eye Exam: absent: Scleral icterus - ENT Exam ENT Exam: Mucous Membranes Moist - Respiratory Exam Respiratory Exam: absent: Respiratory Distress Additional comments: b/l rales present; - Cardiovascular Exam Cardiovascular Exam: Irregular Rhythm, +S1, +S2 - GI/Abdominal Exam GI & Abdominal Exam: Soft. absent: Distended - Extremities Exam Additional comments: mild b/l leg edema; - Neurological Exam Neurological Exam: Alert, Awake - Psychiatric Exam Psychiatric exam: absent: Agitated - Skin Skin Exam: Warm. absent: Cyanosis Assessment and Plan (1) ESRD on hemodialysis Assessment & Plan: Stable electrolyte status; extra HD today for UF due to somewhat labored breathing, but with ensuing increase in vasopressor need; next HD tomorrow per routine; Status: Chronic (2) Shock Assessment & Plan: Septic shock, on cefepime, dosed for HD; recommend to re-dose vanco after HD since patient still with signficant pressor need; Status: Acute (3) Acute hypoxemic respiratory failure Status: Acute (4) Chronic kidney disease-mineral and bone disorder Assessment & Plan: Ca stable, continue to hold sensipar (PTH oversuppressed); Status: Chronic (5) GI bleed Status: Acute
[2018-01-30] MEDS: Pantoprazole 40 mg EC Tab PO SCH (19:47)
[2018-01-30] MEDS: Saccharomyces Boulardi 250 mg Cap PO SCH (22:47)
--- NOTE | 2018-01-30 23:28 | CP.PCM.PN ---
Subjective - Date & Time of Evaluation Date of Evaluation: 01/30/18 Time of Evaluation: 11:00 - Subjective Subjective: Patient was seen and examined at bedside. Patient seems more agitated. Currently on 1:1 for suicide watch. Objective - Vital Signs/Intake and Output Vital Signs (last 24 hours): Temp Pulse Resp BP Pulse Ox 97.8 F 93 H 14 100/68 100 01/30/18 20:00 01/30/18 22:45 01/30/18 22:45 01/30/18 22:45 01/30/18 22:45 Intake and Output: 01/30/18 01/31/18 18:59 06:59 Intake Total 1694.8 528.0 Output Total 1500 0 Balance 194.8 528.0 - Medications Medications: Current Medications Ascorbic Acid (Vitamin C 500 Mg Tab) 500 mg PO DAILY [facility] Last Admin: 01/30/18 13:00 Dose: 500 mg Epoetin Melvin (Procrit) 10,000 unit IV TTS [facility] Hydromorphone HCl (Dilaudid) 0.25 mg IVP Q8H PRN PRN Reason: Pain, severe (8-10) Last Admin: 01/30/18 10:22 Dose: 0.25 mg Cefepime HCl (Maxipime Iv 1 Gm Premix) 1 gm in 50 mls @ 100 mls/hr IVPB Q24H [facility] PRN Reason: Protocol Last Admin: 01/30/18 12:59 Dose: 100 mls/hr Norepinephrine Bitartrate 8 mg (/ Sodium Chloride) 258 mls @ 23.22 mls/hr IV .Q11H7M PRN; Protocol; 12 MCG/MIN PRN Reason: TITRATE PER MD ORDER Last Admin: 01/30/18 22:45 Dose: 20 mcg/min, 38.7 mls/hr Levothyroxine Sodium (Synthroid) 25 mcg PO 0600 [facility] Last Admin: 01/30/18 05:46 Dose: 25 mcg Midodrine (Proamatine) 5 mg PO TID [facility] Last Admin: 01/30/18 17:36 Dose: 5 mg Pantoprazole Sodium (Protonix Ec Tab) 40 mg PO Q12H [facility] Last Admin: 01/30/18 19:47 Dose: Not Given Saccharomyces Boulardii (Florastor) 250 mg PO Q12 [facility] Last Admin: 01/30/18 22:47 Dose: 250 mg Sucralfate (Carafate Oral Susp) 1 gm PO TID [facility] Last Admin: 01/30/18 17:36 Dose: 1 gm Vitamin B Complex/Vit C/Folic Acid (Nephro-Sarah) 1 tab PO 0800 [facility] Last Admin: 01/30/18 08:04 Dose: 1 tab - Labs Labs: 01/30/18 06:22 01/30/18 06:22 - Constitutional Appears: Well - Head Exam Head Exam: ATRAUMATIC - Eye Exam Eye Exam: EOMI, Normal appearance, PERRL - ENT Exam ENT Exam: Mucous Membranes Moist, Normal Exam - Neck Exam Neck Exam: Normal Inspection - Respiratory Exam Respiratory Exam: Clear to Ausculation Bilateral. absent: Stridor - Cardiovascular Exam Cardiovascular Exam: Bradycardia, REGULAR RHYTHM - GI/Abdominal Exam GI & Abdominal Exam: Normal Bowel Sounds - Skin Skin Exam: Normal Color Assessment and Plan (1) Left leg pain Status: Acute - Assessment and Plan (Free Text) Assessment: Patient was seen and examined at bedside. Patient seems more agitated. Currently on 1:1 for suicide watch.
[2018-01-31] MEDS: Levothyroxine 25 MCG TAB PO SCH (06:24)
[2018-01-31 06:32] LABS: BASO # 0.1 K/uL (0.0-0.2); BASO % 0.5 % (0.0-2.0); HEMOGLOBIN 8.8 g/dL (11.0-16.0); LYMPH # 1.1 K/uL (1.0-4.3); LYMPH % 5.7 % (20.0-40.0); MEAN CELL VOLUME 93.5 fL (81.0-99.0); MEAN CORPUSCULAR HEMOGLOBIN 30.4 pg (27.0-31.0); MEAN CORPUSCULAR HGB CONC 32.5 g/dL (33.0-37.0); MEAN PLATELET VOLUME 10.5 fL (7.2-11.7); MONO # 1.1 K/uL (0.0-0.8); MONO % 5.7 % (0.0-10.0); NEUT # 16.7 K/uL (1.8-7.0); NEUT % 88.1 % (50.0-75.0); NRBC % 1.5 % (0.0-2.0); PLATELET COUNT 109 K/uL (130-400); RBC 2.89 Mil/uL (3.80-5.20); RED CELL DISTRIBUTION WIDTH 17.3 % (11.5-14.5)
[2018-01-31 06:40] LABS: ALBUMIN 3.2 g/dL (3.5-5.0); CALCIUM 9.4 mg/dl (8.6-10.4)
[2018-01-31 08:09] LABS: BANDS 1 % (0-2); EOSINOPHIL 1 % (0-4); LYMPHOCYTE 7 % (20-40); MONOCYTE 4 % (0-10); NEUTROPHIL 87 % (50-75); NUCLEATED RED BLOOD CELL 4 % (0-0); TOTAL CELLS COUNTED 100
[2018-01-31 08:10] LABS: ANISOCYTOSIS SLIGHT; PLATELET ESTIMATE SLIGHTLY INCREASED (NORMAL)
[2018-01-31] MEDS: HYDROmorphone 0.5 mg/0.5 ml ISec IVP PRN ×2 (08:40→17:31)
[2018-01-31] MEDS: Multivitamin Vitamin B Complex (Nephro-Vite) Tab PO SCH (08:41)
[2018-01-31] MEDS: Pantoprazole 40 mg EC Tab PO SCH ×2 (08:41→18:52)
--- NOTE | 2018-01-31 09:21 | RAD ---
HISTORY: fluid overloaded? concern for PNA? COMPARISON: Comparison made with prior chest radiograph 01/29/2018 FINDINGS: In situ right IJ MediPort with tip in the SVC/RA junction LUNGS: Diffuse bilateral infiltrates (right greater than left) again noted which could represent the pulmonary edema or multi focal pneumonia ; rule out CHF or fluid overload. Questionable pleural-based calcification right lung apex. Blunting left CP angle could be due to pleural effusion PLEURA: Suspect left-sided effusion. No apparent pneumothorax CARDIOVASCULAR: Heart size appears borderline/ mildly enlarged. OSSEOUS STRUCTURES: No significant abnormalities. VISUALIZED UPPER ABDOMEN: Normal. OTHER FINDINGS: None. IMPRESSION: Diffuse bilateral infiltrates (right greater than left) again noted which could represent the pulmonary edema or multi focal pneumonia ; rule out CHF or fluid overload. Questionable pleural-based calcification right lung apex. Blunting left CP angle could be due to pleural effusion
[2018-01-31 09:46] LABS: ABG ALLEN TEST POS; ARTERIAL BLOOD GAS HCO3 23.8 mmol/L (21-28); ARTERIAL BLOOD GAS HEMOGLOBIN 8.8 g/dL (11.7-17.4); ARTERIAL BLOOD GAS O2 SAT 93.1 % (95-98); ARTERIAL BLOOD GAS PCO2 53 mm/Hg (35-45); ARTERIAL BLOOD GAS PH 7.29 (7.35-7.45); ARTERIAL BLOOD GAS PO2 55 mm/Hg (80-100); ARTERIAL BLOOD GAS TCO2 27.1 mmol/L (22-28)
[2018-01-31] MEDS ORDERED: Vancomycin 1 gm/NS 200 ml 1 GM/200 ML BAG IVPB SCH (10:00)
[2018-01-31] MEDS ORDERED: GENTAMICIN IVPB SCH (10:00)
[2018-01-31] MEDS ORDERED: SODIUM CHLORIDE 0.9% IVPB SCH (10:00)
[2018-01-31] MEDS: Cefepime IV 1 gm in Dextrose 1 GM/50 ML BAG IVPB SCH (10:00)
[2018-01-31] MEDS ORDERED: Epoetin Alfa 10,000 unit/ml Dialysis IV SCH (10:00)
[2018-01-31] MEDS ORDERED: DiphenhydrAMINE 50 mg/ml Inj IVP STA (10:42)
[2018-01-31] MEDS: Sucralfate 1 gm/10 ml Oral Susp UD PO SCH ×3 (10:44→17:16)
[2018-01-31] MEDS: Saccharomyces Boulardi 250 mg Cap PO SCH ×3 (10:51→23:00)
--- NOTE | 2018-01-31 11:08 | CP.PCM.PN ---
<Jovanny Mathews - Last Filed: 01/31/18 10:59> Subjective - Date & Time of Evaluation Date of Evaluation: 01/31/18 Time of Evaluation: 10:00 - Subjective Subjective: Podiatry progress note: Dr. Mcgee 62 year old female patient seen and evaluated at bedside ICU with attending Dr. Mcgee concerning Left foot open wound. Patient is AAOx3 and is in NAD. Denies of any acute overnight events. Patient's family was not by bedside at the time of visit. Dressing to Left foot remains clean dry and intact. Patient admits to mild pain to left foot dorsum. No pedal complains at this time. Objective - Vital Signs/Intake and Output Vital Signs (last 24 hours): Temp Pulse Resp BP Pulse Ox 98.9 F 98 H 16 98/68 L 98 01/31/18 04:00 01/31/18 06:59 01/31/18 06:59 01/31/18 06:59 01/31/18 06:59 Intake and Output: 01/31/18 01/31/18 06:59 18:59 Intake Total 1206.0 265.1 Output Total 0 0 Balance 1206.0 265.1 - Medications Medications: Current Medications Ascorbic Acid (Vitamin C 500 Mg Tab) 500 mg PO DAILY [facility] Last Admin: 01/31/18 10:44 Dose: 500 mg Epoetin Melvin (Procrit) 10,000 unit IV TTS [facility] Hydromorphone HCl (Dilaudid) 0.25 mg IVP Q8H PRN PRN Reason: Pain, severe (8-10) Last Admin: 01/31/18 08:40 Dose: 0.25 mg Cefepime HCl (Maxipime Iv 1 Gm Premix) 1 gm in 50 mls @ 100 mls/hr IVPB Q24H [facility] PRN Reason: Protocol Last Admin: 01/30/18 12:59 Dose: 100 mls/hr Norepinephrine Bitartrate 8 mg (/ Sodium Chloride) 258 mls @ 23.22 mls/hr IV .Q11H7M PRN; Protocol; 12 MCG/MIN PRN Reason: TITRATE PER MD ORDER Last Admin: 01/31/18 06:59 Dose: 20 mcg/min, 38.7 mls/hr Gentamicin Sulfate 210 mg/ (Sodium Chloride) 105.25 mls @ 100 mls/hr IVPB TTS [facility] PRN Reason: Protocol Vancomycin/Sodium Chloride (Vancomycin 1 Gm/Ns 200 Ml) 1 gm in 200 mls @ 133.333 mls/hr IVPB TTS [facility] PRN Reason: Protocol Stop: 02/05/18 10:01 Levothyroxine Sodium (Synthroid) 25 mcg PO 0600 [facility] Last Admin: 01/31/18 06:24 Dose: 25 mcg Midodrine (Proamatine) 5 mg PO TID [facility] Last Admin: 01/31/18 10:49 Dose: 5 mg Pantoprazole Sodium (Protonix Ec Tab) 40 mg PO Q12H [facility] Last Admin: 01/31/18 08:41 Dose: 40 mg Saccharomyces Boulardii (Florastor) 250 mg PO Q12 [facility] Last Admin: 01/31/18 10:51 Dose: 250 mg Sucralfate (Carafate Oral Susp) 1 gm PO TID [facility] Last Admin: 01/31/18 10:44 Dose: Not Given Vitamin B Complex/Vit C/Folic Acid (Nephro-Sarah) 1 tab PO 0800 [facility] Last Admin: 01/31/18 08:41 Dose: 1 tab - Labs Labs: 01/31/18 06:24 01/31/18 06:14 - Constitutional Appears: Well, Non-toxic, No Acute Distress - Head Exam Head Exam: ATRAUMATIC - Extremities Exam Additional comments: B/l LE focused exam Derm: Left lower extremity - Olsen grade 2/possible 3 noted at the dorso-lateral aspect of the left foot, necrotic changes noted surrounding the wound, no erythema, wound base is mainly fibrotic with exposed tendons, no mal-odor, no periwound erythema, small amount of bleeding noted from the wound site, no purulence, active serous drainage, no clinical suspicion of active infection at this time, avulsed nail plate noted on the hallux of the left foot Right lower extremity - Approximately 0.2 cm x 0.2 cm x 0.1 cm ulceration noted to right lateral heel. Base fibrogranular and improving. No erythema, malodor, drainage, probe to bone, tracking, tunneling or undermining noted. No other clinical signs of infection noted Vasc: DP/PT pulses faintly palpable to b/l LE. CFT < 3 seconds to all digits. Skin temperature warm to warm from proximal to distal WNL b/l Neuro: Epicritic and protective sensation grossly intact b/l MSK: Diffuse pain noted to left foot and leg with palpation, especially at site of blister and left hallux, improved since yesterday. No POP to right foot ulceration. No other gross deformities noted b/l - Neurological Exam Neurological Exam: Alert, Awake, Oriented x3 - Psychiatric Exam Psychiatric exam: Normal Affect, Normal Mood - Skin Skin Exam: Normal Color, Warm Assessment and Plan - Assessment and Plan (Free Text) Assessment: 62 year old female patient with significant PMHx presents with Left foot open wound Plan: Patient seen and evaluated at bedside Discussed plan with attending Dr. Arely Irving, WBC 19.0 01/16/18 Wound Cx left toe: Serratia Marcescens L foot xray 01/16: There is a well defined cortical defect in the proximal fifth metatarsal that is most consistent with an old fracture. There is also periosteal thickening in the third and fourth metatarsal L foot MRI 01/18: Probable OM of first distal phalanx LE arterial duplex: 1. Limited exam due to calcified vessels 2. B/l SFA disease 3. B/l popliteal, trifurcation, and/or tibial disease 4. If clinically indicated , further evaluation with MRA with gadolinium runoff, CTA runoff or conventional arteriogram can be considered LE venous duplex: No sonographic evidence of DVT Left foot lanced blister site dressed with Telfa, DSD, DONNA Continue IV abx per ID Continue pain meds Vascular on board - BKA recommended after stabilization Patient to remain NWB to left foot due to chronic Bonilla fracture Podiatry will continue to follow while patient in house <Bharathi Mcgee - Last Filed: 01/31/18 22:06> Objective - Vital Signs/Intake and Output Vital Signs (last 24 hours): Temp Pulse Resp BP Pulse Ox 98 F 99 H 15 96/64 L 93 L 01/31/18 20:00 01/31/18 21:43 01/31/18 21:43 01/31/18 21:43 01/31/18 21:43 Intake and Output: 01/31/18 02/01/18 18:59 06:59 Intake Total 1480.6 333.0 Output Total 0 0 Balance 1480.6 333.0 - Medications Medications: Current Medications Ascorbic Acid (Vitamin C 500 Mg Tab) 500 mg PO DAILY [facility] Last Admin: 01/31/18 10:44 Dose: 500 mg Bupropion HCl (Wellbutrin) 100 mg PO DAILY [facility] Last Admin: 01/31/18 15:40 Dose: 100 mg Epoetin Melvin (Procrit) 10,000 unit IV TTS [facility] Last Admin: 01/31/18 13:39 Dose: 10,000 unit Hydromorphone HCl (Dilaudid) 0.25 mg IVP Q8H PRN PRN Reason: Pain, severe (8-10) Last Admin: 01/31/18 17:31 Dose: 0.25 mg Hydroxyzine HCl (Atarax) 25 mg PO Q6 PRN PRN Reason: Anxiety Cefepime HCl (Maxipime Iv 1 Gm Premix) 1 gm in 50 mls @ 100 mls/hr IVPB Q24H [facility] PRN Reason: Protocol Last Admin: 01/31/18 10:00 Dose: 100 mls/hr Norepinephrine Bitartrate 8 mg (/ Sodium Chloride) 258 mls @ 23.22 mls/hr IV .Q11H7M PRN; Protocol; 12 MCG/MIN PRN Reason: TITRATE PER MD ORDER Last Admin: 01/31/18 21:43 Dose: 20 mcg/min, 38.7 mls/hr Gentamicin Sulfate 210 mg/ (Sodium Chloride) 105.25 mls @ 100 mls/hr IVPB TTS [facility] PRN Reason: Protocol Last Admin: 01/31/18 15:18 Dose: 100 mls/hr Vancomycin/Sodium Chloride (Vancomycin 1 Gm/Ns 200 Ml) 1 gm in 200 mls @ 133.333 mls/hr IVPB TTS [facility] PRN Reason: Protocol Stop: 02/05/18 10:01 Last Admin: 01/31/18 15:14 Dose: 133.333 mls/hr Levothyroxine Sodium (Synthroid) 25 mcg PO 0600 [facility] Last Admin: 01/31/18 06:24 Dose: 25 mcg Midodrine (Proamatine) 5 mg PO TID [facility] Last Admin: 01/31/18 17:32 Dose: 5 mg Mirtazapine (Remeron) 15 mg PO HS [facility] Last Admin: 01/31/18 21:40 Dose: 15 mg Pantoprazole Sodium (Protonix Ec Tab) 40 mg PO Q12H [facility] Last Admin: 01/31/18 18:52 Dose: 40 mg Saccharomyces Boulardii (Florastor) 250 mg PO Q12 [facility] Last Admin: 01/31/18 21:40 Dose: 250 mg Sucralfate (Carafate Oral Susp) 1 gm PO TID [facility] Last Admin: 01/31/18 17:16 Dose: Not Given Trazodone HCl (Desyrel) 50 mg PO HS [facility] Last Admin: 01/31/18 21:40 Dose: 50 mg Vitamin B Complex/Vit C/Folic Acid (Nephro-Sarah) 1 tab PO 0800 [facility] Last Admin: 01/31/18 08:41 Dose: 1 tab - Labs Labs: 01/31/18 06:24 01/31/18 06:14 Assessment and Plan - Assessment and Plan (Free Text) Plan: As above .Labs and chart reviewed . Patient needs Bka as recommended by Dr Fernandes . Pt is refusing . Risk of sepsis . will discuss further after tranfer from ICU ./Dr Mcgee
--- NOTE | 2018-01-31 12:42 | CP.PCM.CON ---
History of Present Illness - History of Present Illness History of Present Illness: Palliative consult requested by Doctor Brionna FELIZ for goals of care discussion Patient is a 62 yo female transferred from [facility] ICU where she was treated for Hypotension. At the notice of very low BP patient was administered IVF bolus, FFP and PRBCs. In addition to it , Levophed IV initiated for BP support. Patient was fond with WBC of 20.4 and treated for sepsis accordingly. PMH:A Fib, on Cumadin, multiple myeloma, S/P chemo Tx years ago, ESRD on HD 3X a week, left foot osteomyelitis Soc. Hx: , lives at home with daughter Thiago. Hx: renal disease runs in family Review of Systems - Constitutional Constitutional: Weakness - EENT Eyes: absent: As Per HPI, Blind Spots, Blurred Vision, Change in Vision, Decreased Night Vision, Diplopia, Discharge, Dry Eye, Exophthalmos, Floaters, Irritation, Itchy Eyes, Loss of Peripheral Vision, Pain, Photophobia, Requires Corrective Lenses, Sees Flashes, Spots in Vision, Tunnel Vision, Other Visual Disturbances, Loss of Vision, Other Ears: absent: As Per HPI, Decreased Hearing, Ear Discharge, Ear Pain, Tinnitus, Abnormal Hearing, Disequilibrium, Dizziness, Other Nose/Mouth/Throat: absent: As Per HPI, Epistaxis, Nasal Congestion, Nasal Discharge, Nasal Obstruction, Nasal Trauma, Nose Pain, Post Nasal Drip, Sinus Pain, Sinus Pressure, Bleeding Gums, Change in Voice, Dental Pain, Dry Mouth, Dysphagia, Halitosis, Hoarsness, Lip Swelling, Mouth Lesions, Mouth Pain, Odynophagia, Sore Throat, Throat Swelling, Tongue Swelling, Facial Pain, Neck Pain, Neck Mass, Other - Breasts Breasts: absent: As Per HPI, Change in Shape, Mass, Pain, Nipple Discharge, Nipple Inversion, Skin Changes, Swelling, Other - Cardiovascular Cardiovascular: Leg Ulcers, Pedal Edema - Respiratory Respiratory: absent: As Per HPI, Cough, Dyspnea, Hemoptysis, Dyspnea on Exertion , Wheezing, Snoring, Stridor, Pain on Inspiration, Chest Congestion, Excessive Mucous Production, Change in Mucous Color, Pain with Coughing, Other - Gastrointestinal Gastrointestinal: absent: As Per HPI, Abdominal Pain, Belching, Bloating, Change in Bowel Habits, Change in Stool Character, Coffee Ground Emesis, Constipation, Cramping, Diarrhea, Dyspepsia, Dysphagia, Early Satiety, Excessive Flatus, Fecal Incontinence, Heartburn, Hematemesis, Hematochezia, Loose Stools, Melena, Nausea, Odynophagia, Temesmus, Vomiting, Other - Genitourinary Genitourinary: absent: As Per HPI, Change in Urinary Stream, Difficulty Urinating, Dysuria, Flank Pain, Hematuria, Pyuria, Nocturia, Urinary Incontinence, Urinary Frequency, Urinary Hesitance, Urinary Urgency, Voiding Freq/Small Amts, Freq UTI, Hx Renal/Bladder Calculi, Hx /Renal Surgery, Bladder Distension, Other - Reproductive: Female Reproductive:Female: Post Menopausal - Menstruation Menstruation: Post Menopausal - Musculoskeletal Musculoskeletal: Muscle Weakness Additional comments: left foot ostomyelitis - Integumentary Additional comments: pressure sore to coxycc area - Neurological Neurological: Weakness - Psychiatric Psychiatric: absent: As Per HPI, Abnormal Sleep Pattern, Anhedonia, Anxiety, Auditory Hallucinations, Behavioral Changes, Change in Appetite, Change in Libido, Confusion, Depression, Difficulty Concentrating, Hallucinations, Homicidal Ideation, Hopelessness, Irritability, Memory Loss, Mood Swings, Panic Attacks, Paranoia, Suicidal Ideation, Visual Hallucinations, Tactile Hallucinations, Other - Endocrine Endocrine: absent: As Per HPI, Change in Body Appearance, Change in Libido, Cold Intolorance, Deepening of Voice, Excessive Sweating, Fatigue, Flushing, Heat Intolorance, Increase in Ring/Shoe/Hat Size, Palpitations, Polydipsia, Polyphagia, Polyuria, Other - Hematologic/Lymphatic Hematologic: absent: As Per HPI, Easy Bleeding, Easy Bruising, Lymphadenopathy, Other Past Patient History - Infectious Disease Hx of Infectious Diseases: None - Past Medical History & Family History Past Medical History?: Yes - Past Social History Smoking Status: Never Smoked - CARDIAC Hx Atrial Fibrillation: Yes Hx Pacemaker: No Hx Peripheral Edema: Yes (ble +1 pitting dry leathery skin) Hx Peripheral Vascular Disease: Yes Other/Comment: left foot cool to touch - PULMONARY Other/Comment: pt had sleep study and was dx with sleep apnea by dr ding, could not tolerate cpap at home needs to follow up with dr ding but has not been feeling well - NEUROLOGICAL Hx Neurological Disorder: No - RENAL Hx Renal Failure: Yes (ESRD, Osteomyelitis, Sleep Apnea,) - ENDOCRINE/METABOLIC Hx Endocrine Disorders: No - HEMATOLOGICAL/ONCOLOGICAL Hx Cancer: Yes Other/Comment: myeloma, osteomyelitis - INTEGUMENTARY Hx Dermatological Problems: Yes Other/Comment: ble discolored +1 pitting edema leathery skin, generalized dry flakey skin over body, dry skin to buttocks no openings, left foot toes ardry flakey skin both feete dry hard 1/2 nail missing from great toe, closed blister to top of foot, ischemic ulceration to left foot, painful, dry skin and toes r ft - MUSCULOSKELETAL/RHEUMATOLOGICAL Hx Falls: No - GASTROINTESTINAL Hx Gastrointestinal Disorders: Yes (weight loss poor appetite) - GENITOURINARY/GYNECOLOGICAL Hx Genitourinary Disorders: Yes (gangrenous cystitis) - PSYCHIATRIC Hx Anxiety: Yes Hx Emotional Abuse: No Hx Physical Abuse: No Hx Substance Use: No - SURGICAL HISTORY Hx Cholecystectomy: Yes (2007) Other/Comment: left arm av fistula, r arm port in and out post chemo when dx with multiple myeloma, angiogram rle 12/27/17 dr dilan lainez, fistulagram - ANESTHESIA Hx Anesthesia Reactions: Yes (HIGH TOLERANCE) Hx Malignant Hyperthermia: No Meds Allergies/Adverse Reactions: Allergies Allergy/AdvReac Type Severity Reaction Status Date / Time IV CONTRAST Allergy Mild RASH Uncoded 01/27/18 14:29 - Medications Medications: Current Medications Ascorbic Acid (Vitamin C 500 Mg Tab) 500 mg PO DAILY KEYON Last Admin: 01/31/18 10:44 Dose: 500 mg Epoetin Melvin (Procrit) 10,000 unit IV TTS KEYON Hydromorphone HCl (Dilaudid) 0.25 mg IVP Q8H PRN PRN Reason: Pain, severe (8-10) Last Admin: 01/31/18 08:40 Dose: 0.25 mg Cefepime HCl (Maxipime Iv 1 Gm Premix) 1 gm in 50 mls @ 100 mls/hr IVPB Q24H KEYON PRN Reason: Protocol Last Admin: 01/30/18 12:59 Dose: 100 mls/hr Norepinephrine Bitartrate 8 mg (/ Sodium Chloride) 258 mls @ 23.22 mls/hr IV .Q11H7M PRN; Protocol; 12 MCG/MIN PRN Reason: TITRATE PER MD ORDER Last Admin: 01/31/18 06:59 Dose: 20 mcg/min, 38.7 mls/hr Gentamicin Sulfate 210 mg/ (Sodium Chloride) 105.25 mls @ 100 mls/hr IVPB TTS KEYON PRN Reason: Protocol Vancomycin/Sodium Chloride (Vancomycin 1 Gm/Ns 200 Ml) 1 gm in 200 mls @ 133.333 mls/hr IVPB TTS KEYON PRN Reason: Protocol Stop: 02/05/18 10:01 Levothyroxine Sodium (Synthroid) 25 mcg PO 0600 [facility] Last Admin: 01/31/18 06:24 Dose: 25 mcg Midodrine (Proamatine) 5 mg PO TID [facility] Last Admin: 01/31/18 10:49 Dose: 5 mg Pantoprazole Sodium (Protonix Ec Tab) 40 mg PO Q12H [facility] Last Admin: 01/31/18 08:41 Dose: 40 mg Saccharomyces Boulardii (Florastor) 250 mg PO Q12 [facility] Last Admin: 01/31/18 10:51 Dose: 250 mg Sucralfate (Carafate Oral Susp) 1 gm PO TID [facility] Last Admin: 01/31/18 10:44 Dose: Not Given Vitamin B Complex/Vit C/Folic Acid (Nephro-Sarah) 1 tab PO 0800 [facility] Last Admin: 01/31/18 08:41 Dose: 1 tab Physical Exam - Constitutional Appears: Chronically Ill - Head Exam Head Exam: ATRAUMATIC, NORMAL INSPECTION, NORMOCEPHALIC - Eye Exam Eye Exam: EOMI, Normal appearance, PERRL Pupil Exam: NORMAL ACCOMODATION, PERRL - ENT Exam ENT Exam: Mucous Membranes Dry - Neck Exam Neck exam: Positive for: Normal Inspection - Respiratory Exam Respiratory Exam: Decreased Breath Sounds - Cardiovascular Exam Cardiovascular Exam: Tachycardia - GI/Abdominal Exam GI & Abdominal Exam: Normal Bowel Sounds - Rectal Exam Rectal Exam: Deferred - Extremities Exam Extremities exam: Positive for: pedal edema Additional comments: left foot osteomyelitis - Back Exam Additional comments: coxycc pressure sore - Neurological Exam Neurological exam: Alert, Oriented x3 - Psychiatric Exam Psychiatric exam: Normal Affect, Normal Mood - Skin Skin Exam: Mottled Results - Vital Signs Recent Vital Signs: Last Vital Signs Temp 98.3 F 01/31/18 11:20 Pulse 94 H 01/31/18 12:30 Resp 16 01/31/18 11:20 BP 100/75 01/31/18 12:30 Pulse Ox 98 01/31/18 06:59 - Labs Result Diagrams: 01/31/18 06:24 01/31/18 06:14 Labs: Laboratory Results - last 24 hr 01/31/18 01/31/18 01/31/18 06:14 06:24 09:42 WBC 19.0 H RBC 2.89 L Hgb 8.8 L Hct 27.1 L MCV 93.5 MCH 30.4 MCHC 32.5 L RDW 17.3 H Plt Count 109 L MPV 10.5 Neut % (Auto) 88.1 H Lymph % (Auto) 5.7 L Bremer % (Auto) 5.7 Eos % (Auto) 0.0 Baso % (Auto) 0.5 Neut # (Auto) 16.7 H Lymph # (Auto) 1.1 Bremer # (Auto) 1.1 H Eos # (Auto) 0.0 Baso # (Auto) 0.1 Neutrophils % (Manual) 87 H Band Neutrophils % 1 Lymphocytes % (Manual) 7 L Monocytes % (Manual) 4 Eosinophils % (Manual) 1 Nucleated RBC % 4 H Platelet Estimate Slightly increased H Basophilic Stippling Slight Anisocytosis (manual) Slight Puncture Site Rr pCO2 53 H pO2 55 L HCO3 23.8 ABG pH 7.29 L ABG Total CO2 27.1 ABG O2 Saturation 93.1 L ABG Base Excess -1.3 ABG Hemoglobin 8.8 L ABG Carboxyhemoglobin 3.0 H POC ABG HHb (Measured) 6.6 H ABG Methemoglobin 1.1 Marlon Test Pos A-a O2 Difference 114.0 Respiratory Index 2.1 Hgb O2 Saturation 89.4 L Liter Flow 4.0 FiO2 33.0 Sodium 148 Potassium 3.9 Chloride 105 Carbon Dioxide 26 Anion Gap 21 H BUN 47 H Creatinine 3.0 H Est GFR ( Amer) 19 Est GFR (Non-Af Amer) 16 Random Glucose 71 Calcium 9.4 Phosphorus 4.0 Magnesium 1.9 Total Bilirubin 1.3 AST 26 ALT 35 Alkaline Phosphatase 122 Total Protein 6.4 Albumin 3.2 L Globulin 3.1 Albumin/Globulin Ratio 1.0 Assessment & Plan - Assessment and Plan (Free Text) Assessment: Palliative consult Full Code prior to consult I reviewed medical records, all diagnostic studies, examined and interviewed patient in the bed. Patient is alert and oriented X 3, looking chronically ill. Patient was able to appropriatelly answer all of my questions; where she was, for how long, where she came from and why and all her medical Hx. Her main complaint was pain in between buttocks area. On exam, the open wound 1 cm X 0.5 cm noted, right on the bone of coccyx. Pain is relieved with off loading the pressure from area. Patient denied pain to left foot. Both legs are severely discolored. Patient is very weak and unable to reposition in bed on her own. WBC 19.0, afebrile. BP 98/68, HR 98. Goals of care discussed. I elicited patient's understanding of her condition and her expectations. She dictated to me all of her medical condition. At the same time patient looked so proud being able to fight it all. Patient aware that her condition has declined. She is unable to walk any more and she needs much more assistance than before. Patient wishes to be kept comfortable and to " go with God" when her time comes. Code status discussed. I enabled patient to make informed decision. She was very clear that she would not want to have her life prolonged by aggressive measures if recovery was not expected.POLST introduced. Patient choose DNR/DNI but no limitations to ordinary Medical interventions. This was witnessed by Primary RN. I shared this with Doctor Mirza and ICU team. I also called patient's daughter Glenis as I wanted her to be included in decsin making process and made her aware of her mother's wishes. Glenis confirmed that in the past her mother had told her the same. Daughter agreed with patient's decision Impression * This is very unfortunate young lady with multiple co morbidities * Limited mobility due to osteomyelitis * Weakness * Coccyx pressure sore * Patient able to make decisions regarding her care; daughter supportive of her wishes * Patient values comfort over longevity Suggestions * promote skin integrity * Off load sacral area using wedge * Hydrogel oint. to coccyx pressure sore and cover with cushioned dressing daily * DNR/DNI * POLST on chart Advance planing time 45 min
--- NOTE | 2018-01-31 12:58 | CP.CCUPN ---
<PanteraclaudiaBrionna - Last Filed: 01/31/18 12:51> CCU Subjective - Physician Review Subjective (Free Text): Patient was seen and examined at bedside. Patient seems more calm. Currently on 1:1 for suicide watch. CCU Objective - Vital Signs / Intake & Output Vital Signs (Last 4 hours): Vital Signs Temp Pulse Pulse Resp BP BP Pulse Ox 01/31/18 12:45 92 H 103/68 01/31/18 12:32 92 H 20 100/75 01/31/18 12:30 100 H 94 H 15 100/75 01/31/18 12:17 108 H 15 106/74 01/31/18 12:15 94 H 91 H 16 106/74 01/31/18 12:02 106 H 16 109/69 01/31/18 12:00 101 F H 92 H 102 H 17 109/69 100 01/31/18 11:47 95 H 19 108/67 01/31/18 11:45 88 98 H 25 H 108/67 01/31/18 11:32 104 H 15 106/69 01/31/18 11:30 99 H 16 106/69 01/31/18 11:20 98.3 F 89 16 99/60 L 01/31/18 11:17 131 H 20 109/80 01/31/18 11:15 112 H 111 H 19 109/80 01/31/18 11:12 110 H 106/71 01/31/18 11:02 97 H 21 106/71 74 L 01/31/18 11:00 106 H 15 74 L 01/31/18 10:45 105 H 14 01/31/18 10:33 103 H 16 99/67 L 01/31/18 10:30 99 H 16 01/31/18 10:15 112 H 19 94 L 01/31/18 10:03 96 H 17 100/65 85 L 01/31/18 10:00 100 H 94 L 01/31/18 09:51 96 H 80 L 01/31/18 09:32 95 H 18 77/53 L 01/31/18 09:30 100 H 18 01/31/18 09:15 83 16 01/31/18 09:02 104 H 23 85/56 L 01/31/18 09:00 93 H 28 H Intake and Output (Last 8hrs): Intake & Output 01/30/18 01/31/18 01/31/18 22:59 06:59 14:59 Intake Total 938.0 678.0 265.1 Output Total 0 0 0 Balance 938.0 678.0 265.1 Intake: IV 258 258 Intake, IV Amount 500.0 300.0 105.1 Right Distal Port 200 Internal Jugular Right Proximal Port 300.0 300.0 105.1 Internal Jugular Oral 180 120 160 Output: Urine 0 0 0 Urine, Voided 0 0 0 Emesis 0 Other: # Voids Urine, Voided 0 # Bowel Movements 1 0 - Physical Exam Head: Positive for: Atraumatic, Normocephalic Pupils: Positive for: PERRL Extroacular Muscles: Positive for: EOMI Conjunctiva: Positive for: Normal Ears: Positive for: NORMAL TM Mouth: Positive for: Dry Neck: Positive for: Normal Range of Motion Respiratory/Chest: Positive for: Clear to Auscultation. Negative for: Respiratory Distress Cardiovascular: Positive for: Regular Rate and Rhythm Abdomen: Positive for: Normal Bowel Sounds. Negative for: Tenderness, Distention Upper Extremity: Positive for: Normal ROM, Neurovascularly Intact, Capillary Refill < 2s, Other (Left AVF ) Lower Extremity: Positive for: Other (left lower extremity wound on the dorsal aspect of the foot) Neurological: Positive for: GCS=15, CN II-XII Intact Skin: Positive for: Warm, Dry, Normal Color Psychiatric: Positive for: Oriented x 3 - Medications Active Medications: Active Medications Generic Name Dose Route Start Last Admin Trade Name Freq PRN Reason Stop Dose Admin Ascorbic Acid 500 mg 01/27/18 10:00 01/31/18 10:44 Vitamin C 500 Mg Tab PO 500 mg DAILY KEYON Administration Epoetin Melvin 10,000 unit 01/31/18 10:00 Procrit IV TTS KEYON Hydromorphone HCl 0.25 mg 01/28/18 09:28 01/31/18 08:40 Dilaudid IVP 0.25 mg Q8H PRN Administration Pain, severe (8-10) Cefepime HCl 1 gm in 50 mls @ 100 mls/hr 01/27/18 10:00 01/30/18 12:59 Maxipime Iv 1 Gm Premix IVPB 100 mls/hr Q24H KEYON Administration Protocol Norepinephrine Bitartrate 8 mg 258 mls @ 23.22 mls/hr 01/26/18 17:46 06:59 / Sodium Chloride IV 20 mcg/min .Q11H7M PRN 38.7 mls/hr TITRATE PER MD ORDER Administration Protocol 12 MCG/MIN Gentamicin Sulfate 210 mg/ 105.25 mls @ 100 mls/hr 01/31/18 10:00 Sodium Chloride IVPB TTS KEYON Protocol Vancomycin/Sodium Chloride 1 gm in 200 mls @ 133.333 mls/hr 01/31/18 10:00 Vancomycin 1 Gm/Ns 200 Ml IVPB 02/05/18 10:01 TTS [facility] Protocol Levothyroxine Sodium 25 mcg 01/29/18 06:00 01/31/18 06:24 Synthroid PO 25 mcg 0600 [facility] Administration Midodrine 5 mg 01/26/18 18:00 01/31/18 10:49 Proamatine PO 5 mg TID KEYON Administration Pantoprazole Sodium 40 mg 01/30/18 19:15 01/31/18 08:41 Protonix Ec Tab PO 40 mg Q12H KEYNO Administration Saccharomyces Boulardii 250 mg 01/30/18 22:00 01/31/18 10:51 Florastor PO 250 mg Q12 KEYON Administration Sucralfate 1 gm 01/26/18 18:00 01/31/18 10:44 Carafate Oral Susp PO Not Given TID [facility] Vitamin B Complex/Vit C/Folic Acid 1 tab 01/28/18 08:00 01/31/18 08:41 Nephro-Sarah PO 1 tab 0800 KEYON Administration - Patient Studies Lab Studies: Lab Studies 01/31/18 01/31/18 01/31/18 Range/Units 09:42 06:24 06:14 WBC 19.0 H (4.8-10.8) K/uL RBC 2.89 L (3.80-5.20) Mil/uL Hgb 8.8 L (11.0-16.0) g/dL Hct 27.1 L (34.0-47.0) % MCV 93.5 (81.0-99.0) fL MCH 30.4 (27.0-31.0) pg MCHC 32.5 L (33.0-37.0) g/dL RDW 17.3 H (11.5-14.5) % Plt Count 109 L (130-400) K/uL MPV 10.5 (7.2-11.7) fL Neut % (Auto) 88.1 H (50.0-75.0) % Lymph % (Auto) 5.7 L (20.0-40.0) % Duc[place]ne % (Auto) 5.7 (0.0-10.0) % Eos % (Auto) 0.0 (0.0-4.0) % Baso % (Auto) 0.5 (0.0-2.0) % Neut # (Auto) 16.7 H (1.8-7.0) K/uL Lymph # (Auto) 1.1 (1.0-4.3) K/uL Duc[place]ne # (Auto) 1.1 H (0.0-0.8) K/uL Eos # (Auto) 0.0 (0.0-0.7) K/uL Baso # (Auto) 0.1 (0.0-0.2) K/uL Neutrophils % (Manual) 87 H (50-75) % Band Neutrophils % 1 (0-2) % Lymphocytes % (Manual) 7 L (20-40) % Monocytes % (Manual) 4 (0-10) % Eosinophils % (Manual) 1 (0-4) % Nucleated RBC % 4 H (0-0) % Platelet Estimate Slightly increased H (NORMAL) Basophilic Stippling Slight Anisocytosis (manual) Slight Puncture Site Rr pCO2 53 H (35-45) mm/Hg pO2 55 L (80-100) mm/Hg HCO3 23.8 (21-28) mmol/L ABG pH 7.29 L (7.35-7.45) ABG Total CO2 27.1 (22-28) mmol/L ABG O2 Saturation 93.1 L (95-98) % ABG Base Excess -1.3 (-2.0-3.0) mmol/L ABG Hemoglobin 8.8 L (11.7-17.4) g/dL ABG Carboxyhemoglobin 3.0 H (0.5-1.5) % POC ABG HHb (Measured) 6.6 H (0.0-5.0) % ABG Methemoglobin 1.1 (0.0-3.0) % Marlon Test Pos A-a O2 Difference 114.0 mm/Hg Respiratory Index 2.1 Hgb O2 Saturation 89.4 L (95.0-98.0) % Liter Flow 4.0 FiO2 33.0 % Sodium 148 (132-148) mmol/L Potassium 3.9 (3.6-5.2) mmol/L Chloride 105 (98-107) mmol/L Carbon Dioxide 26 (22-30) mmol/L Anion Gap 21 H (10-20) BUN 47 H (7-17) mg/dL Creatinine 3.0 H (0.7-1.2) mg/dL Est GFR ( Amer) 19 Est GFR (Non-Af Amer) 16 Random Glucose 71 (65-105) mg/dL Calcium 9.4 (8.6-10.4) mg/dl Phosphorus 4.0 (2.5-4.5) mg/dL Magnesium 1.9 (1.6-2.3) mg/dL Total Bilirubin 1.3 (0.2-1.3) mg/dL AST 26 (14-36) U/L ALT 35 (9-52) U/L Alkaline Phosphatase 122 (38-126) U/L Total Protein 6.4 (6.3-8.3) g/dL Albumin 3.2 L (3.5-5.0) g/dL Globulin 3.1 (2.2-3.9) gm/dL Albumin/Globulin Ratio 1.0 (1.0-2.1) Laboratory Results - last 24 hr 01/31/18 01/31/18 01/31/18 06:14 06:24 09:42 WBC 19.0 H RBC 2.89 L Hgb 8.8 L Hct 27.1 L MCV 93.5 MCH 30.4 MCHC 32.5 L RDW 17.3 H Plt Count 109 L MPV 10.5 Neut % (Auto) 88.1 H Lymph % (Auto) 5.7 L Duchesne % (Auto) 5.7 Eos % (Auto) 0.0 Baso % (Auto) 0.5 Neut # (Auto) 16.7 H Lymph # (Auto) 1.1 Duchesne # (Auto) 1.1 H Eos # (Auto) 0.0 Baso # (Auto) 0.1 Neutrophils % (Manual) 87 H Band Neutrophils % 1 Lymphocytes % (Manual) 7 L Monocytes % (Manual) 4 Eosinophils % (Manual) 1 Nucleated RBC % 4 H Platelet Estimate Slightly increased H Basophilic Stippling Slight Anisocytosis (manual) Slight Puncture Site Rr pCO2 53 H pO2 55 L HCO3 23.8 ABG pH 7.29 L ABG Total CO2 27.1 ABG O2 Saturation 93.1 L ABG Base Excess -1.3 ABG Hemoglobin 8.8 L ABG Carboxyhemoglobin 3.0 H POC ABG HHb (Measured) 6.6 H ABG Methemoglobin 1.1 Marlon Test Pos A-a O2 Difference 114.0 Respiratory Index 2.1 Hgb O2 Saturation 89.4 L Liter Flow 4.0 FiO2 33.0 Sodium 148 Potassium 3.9 Chloride 105 Carbon Dioxide 26 Anion Gap 21 H BUN 47 H Creatinine 3.0 H Est GFR ( Amer) 19 Est GFR (Non-Af Amer) 16 Random Glucose 71 Calcium 9.4 Phosphorus 4.0 Magnesium 1.9 Total Bilirubin 1.3 AST 26 ALT 35 Alkaline Phosphatase 122 Total Protein 6.4 Albumin 3.2 L Globulin 3.1 Albumin/Globulin Ratio 1.0 Critical Care Progress Note - Nutrition Nutrition: Nutrition Category Date Time Status Renal Diet [DIET] Diets 01/30/18 Dinner Active Assessment/Plan - Assessment and Plan (Free Text) Assessment: 62 year old female with PMHx of A-fib on warfarin, severe PAD, ESRD/anuric (HD TTS; last dialysis Tuesday), hypothyroidism, Multiple Myeloma S/P chemotherapy and radiation therapy, left hallux infected ulcer with osteomyelitis with Serratia growing (01/16) and was put on Cefepime to complete 4-6 weeks ( discharged 01/20), she was admitted 01/25 with hemorrhagic shock and septic shock, given 3u PRBC, and 2U FFP, 2L bolus, s/p EGD 01/26 which showed ulcers, no active bleeding. Patient transferred to [facility] for further care and for dialysis. Currently the patient is still on Levophed. She is refusing dialysis and left BKA. Plan: Neuro: AAO x 3 Cardio: A: Hypotensive septic versus hemorrhagic shock - Levophed drip - Midodrine TID A: Atrial Fib - On Warfarin - HELD - ECHO 01/17: LVEF 70%, RV volume overload, mild LVH, Severe TR, moderate pulm HTN Pulm: A: Fluid Overload - Will be placed on BiPAP after dialysis sessions GI: A: GIB - EGD done today at [facility] [place]. Showed non-bleeding gastric and esophageal ulcers. No overt signs of bleeding seen on EGD. Patient will need a colonoscopy. - Sucralfate TID, Protonix BID - Renal Diet Renal: A: ESRD/anuric (HD TTS; L AVF; last dialysis Tuesday) Dr. Preciado consulted - Received dialysis 01/30 due to fluid overload noted on CXR and on exam Endo: A: Hypothyroidism - Resumed Synthroid ID: A: Septic/ Hemorrhagic Shock - BC 01/25 - drawn from [place] no growth to date A: Left hallux infected ulcer with Osteomyelitis Podiatry consulted Dr. Mcgee and Wound Care consulted - Serratia growing (01/16) and was put on Cefepime to complete 4-6 weeks ( discharged 01/20) - Repeat Wound culture Serratia - continue with Cefepime, gentamycin TTS, and vanco TTS, f/u gent and vanco levels Heme/ Onc: A: Anemia 2/2 acute blood loss - Transfused total 3u PRBC and 2U FFP - at [facility] - Transfused 1 unit 01/30 during dialysis - Procrit TTS - Continue to monitor A: Multiple Myeloma S/P chemotherapy and radiation therapy Vascular: A: Severe PVD Vascular Surgery consulted - Dr. Fernandes - Angiogram done in [place] in December revealed non occlusions of vessels in lower extremity - Arterial PVRs ordered - Likely left BKA Prophylaxis: - Protonix BID - SCDs, VTE c/i 2/2 Osteo, PVD, and GI Bleed - PT/OT Disposition: Patient is DNR/DNI; refusing DW Brionna Asif DO, PGY-1 <Adilson Mirza S - Last Filed: 01/31/18 17:38> CCU Objective - Vital Signs / Intake & Output Vital Signs (Last 4 hours): Vital Signs Pulse Pulse Resp BP BP Pulse Ox 01/31/18 15:30 91 H 18 01/31/18 15:15 94 H 19 101/68 94 L 01/31/18 15:00 95 H 10 L 01/31/18 14:56 89 16 101/68 01/31/18 14:48 92 H 12 107/75 01/31/18 14:45 96 H 95 H 24 107/75 01/31/18 14:32 105 H 17 108/60 96 01/31/18 14:30 87 101 H 17 108/60 87 L 01/31/18 14:17 95 H 18 107/73 95 01/31/18 14:15 88 90 19 107/73 95 01/31/18 14:02 88 19 108/68 97 01/31/18 14:00 89 85 19 108/68 98 01/31/18 13:47 102 H 20 105/71 96 01/31/18 13:45 88 96 H 16 105/71 95 Intake and Output (Last 8hrs): Intake & Output 01/31/18 01/31/18 01/31/18 06:59 14:59 22:59 Intake Total 678.0 870.6 37.5 Output Total 0 0 0 Balance 678.0 870.6 37.5 Intake: IV 258 258 Intake, IV Amount 300.0 292.6 37.5 Right Proximal Port 300.0 292.6 37.5 Internal Jugular Oral 120 320 Output: Urine 0 0 0 Urine, Voided 0 0 0 Emesis 0 0 Other: # Voids Urine, Voided 0 # Bowel Movements 1 0 0 - Medications Active Medications: Active Medications Generic Name Dose Route Start Last Admin Trade Name Freq PRN Reason Stop Dose Admin Ascorbic Acid 500 mg 01/27/18 10:00 01/31/18 10:44 Vitamin C 500 Mg Tab PO 500 mg DAILY KEYON Administration Bupropion HCl 100 mg 01/31/18 14:00 01/31/18 15:40 Wellbutrin PO 100 mg DAILY KEYON Administration Epoetin Melvin 10,000 unit 01/31/18 10:00 01/31/18 13:39 Procrit IV 10,000 unit TTS KEYON Administration Hydromorphone HCl 0.25 mg 01/28/18 09:28 01/31/18 17:31 Dilaudid IVP 0.25 mg Q8H PRN Administration Pain, severe (8-10) Hydroxyzine HCl 25 mg 01/31/18 14:01 Atarax PO Q6 PRN Anxiety Cefepime HCl 1 gm in 50 mls @ 100 mls/hr 01/27/18 10:00 01/31/18 10:00 Maxipime Iv 1 Gm Premix IVPB 100 mls/hr Q24H KEYON Administration Protocol Norepinephrine Bitartrate 8 mg 258 mls @ 23.22 mls/hr 01/26/18 17:46 15:15 / Sodium Chloride IV 20 mcg/min .Q11H7M PRN 38.7 mls/hr TITRATE PER MD ORDER Administration Protocol 12 MCG/MIN Gentamicin Sulfate 210 mg/ 105.25 mls @ 100 mls/hr 01/31/18 10:00 01/31/18 15 :18 Sodium Chloride IVPB 100 mls/hr TTS KEYON Administration Protocol Vancomycin/Sodium Chloride 1 gm in 200 mls @ 133.333 mls/hr 01/31/18 10:00 15:14 Vancomycin 1 Gm/Ns 200 Ml IVPB 02/05/18 10:01 133.333 mls/hr TTS KEYON Administration Protocol Levothyroxine Sodium 25 mcg 01/29/18 06:00 01/31/18 06:24 Synthroid PO 25 mcg 0600 KEYON Administration Midodrine 5 mg 01/26/18 18:00 01/31/18 17:32 Proamatine PO 5 mg TID KEYON Administration Mirtazapine 15 mg 01/31/18 22:00 Remeron PO HS KEYON Pantoprazole Sodium 40 mg 01/30/18 19:15 01/31/18 08:41 Protonix Ec Tab PO 40 mg Q12H KEYON Administration Saccharomyces Boulardii 250 mg 01/30/18 22:00 01/31/18 10:51 Florastor PO 250 mg Q12 KEYON Administration Sucralfate 1 gm 01/26/18 18:00 01/31/18 17:16 Carafate Oral Susp PO Not Given TID KEYON Trazodone HCl 50 mg 01/31/18 22:00 Desyrel PO HS KEYON Vitamin B Complex/Vit C/Folic Acid 1 tab 01/28/18 08:00 01/31/18 08:41 Nephro-Sarah PO 1 tab 0800 KEYON Administration - Patient Studies Lab Studies: Lab Studies 01/31/18 01/31/18 01/31/18 Range/Units 09:42 06:24 06:14 WBC 19.0 H (4.8-10.8) K/uL RBC 2.89 L (3.80-5.20) Mil/uL Hgb 8.8 L (11.0-16.0) g/dL Hct 27.1 L (34.0-47.0) % MCV 93.5 (81.0-99.0) fL MCH 30.4 (27.0-31.0) pg MCHC 32.5 L (33.0-37.0) g/dL RDW 17.3 H (11.5-14.5) % Plt Count 109 L (130-400) K/uL MPV 10.5 (7.2-11.7) fL Neut % (Auto) 88.1 H (50.0-75.0) % Lymph % (Auto) 5.7 L (20.0-40.0) % Duchesne % (Auto) 5.7 (0.0-10.0) % Eos % (Auto) 0.0 (0.0-4.0) % Baso % (Auto) 0.5 (0.0-2.0) % Neut # (Auto) 16.7 H (1.8-7.0) K/uL Lymph # (Auto) 1.1 (1.0-4.3) K/uL Duchesne # (Auto) 1.1 H (0.0-0.8) K/uL Eos # (Auto) 0.0 (0.0-0.7) K/uL Baso # (Auto) 0.1 (0.0-0.2) K/uL Neutrophils % (Manual) 87 H (50-75) % Band Neutrophils % 1 (0-2) % Lymphocytes % (Manual) 7 L (20-40) % Monocytes % (Manual) 4 (0-10) % Eosinophils % (Manual) 1 (0-4) % Nucleated RBC % 4 H (0-0) % Platelet Estimate Slightly increased H (NORMAL) Basophilic Stippling Slight Anisocytosis (manual) Slight Puncture Site Rr pCO2 53 H (35-45) mm/Hg pO2 55 L (80-100) mm/Hg HCO3 23.8 (21-28) mmol/L ABG pH 7.29 L (7.35-7.45) ABG Total CO2 27.1 (22-28) mmol/L ABG O2 Saturation 93.1 L (95-98) % ABG Base Excess -1.3 (-2.0-3.0) mmol/L ABG Hemoglobin 8.8 L (11.7-17.4) g/dL ABG Carboxyhemoglobin 3.0 H (0.5-1.5) % POC ABG HHb (Measured) 6.6 H (0.0-5.0) % ABG Methemoglobin 1.1 (0.0-3.0) % Marlon Test Pos A-a O2 Difference 114.0 mm/Hg Respiratory Index 2.1 Hgb O2 Saturation 89.4 L (95.0-98.0) % Liter Flow 4.0 FiO2 33.0 % Sodium 148 (132-148) mmol/L Potassium 3.9 (3.6-5.2) mmol/L Chloride 105 (98-107) mmol/L Carbon Dioxide 26 (22-30) mmol/L Anion Gap 21 H (10-20) BUN 47 H (7-17) mg/dL Creatinine 3.0 H (0.7-1.2) mg/dL Est GFR ( Amer) 19 Est GFR (Non-Af Amer) 16 Random Glucose 71 (65-105) mg/dL Calcium 9.4 (8.6-10.4) mg/dl Phosphorus 4.0 (2.5-4.5) mg/dL Magnesium 1.9 (1.6-2.3) mg/dL Total Bilirubin 1.3 (0.2-1.3) mg/dL AST 26 (14-36) U/L ALT 35 (9-52) U/L Alkaline Phosphatase 122 (38-126) U/L Total Protein 6.4 (6.3-8.3) g/dL Albumin 3.2 L (3.5-5.0) g/dL Globulin 3.1 (2.2-3.9) gm/dL Albumin/Globulin Ratio 1.0 (1.0-2.1) Laboratory Results - last 24 hr 01/31/18 01/31/18 01/31/18 06:14 06:24 09:42 WBC 19.0 H RBC 2.89 L Hgb 8.8 L Hct 27.1 L MCV 93.5 MCH 30.4 MCHC 32.5 L RDW 17.3 H Plt Count 109 L MPV 10.5 Neut % (Auto) 88.1 H Lymph % (Auto) 5.7 L Duc[place]ne % (Auto) 5.7 Eos % (Auto) 0.0 Baso % (Auto) 0.5 Neut # (Auto) 16.7 H Lymph # (Auto) 1.1 Duchesne # (Auto) 1.1 H Eos # (Auto) 0.0 Baso # (Auto) 0.1 Neutrophils % (Manual) 87 H Band Neutrophils % 1 Lymphocytes % (Manual) 7 L Monocytes % (Manual) 4 Eosinophils % (Manual) 1 Nucleated RBC % 4 H Platelet Estimate Slightly increased H Basophilic Stippling Slight Anisocytosis (manual) Slight Puncture Site Rr pCO2 53 H pO2 55 L HCO3 23.8 ABG pH 7.29 L ABG Total CO2 27.1 ABG O2 Saturation 93.1 L ABG Base Excess -1.3 ABG Hemoglobin 8.8 L ABG Carboxyhemoglobin 3.0 H POC ABG HHb (Measured) 6.6 H ABG Methemoglobin 1.1 Marlon Test Pos A-a O2 Difference 114.0 Respiratory Index 2.1 Hgb O2 Saturation 89.4 L Liter Flow 4.0 FiO2 33.0 Sodium 148 Potassium 3.9 Chloride 105 Carbon Dioxide 26 Anion Gap 21 H BUN 47 H Creatinine 3.0 H Est GFR ( Amer) 19 Est GFR (Non-Af Amer) 16 Random Glucose 71 Calcium 9.4 Phosphorus 4.0 Magnesium 1.9 Total Bilirubin 1.3 AST 26 ALT 35 Alkaline Phosphatase 122 Total Protein 6.4 Albumin 3.2 L Globulin 3.1 Albumin/Globulin Ratio 1.0 Critical Care Progress Note - Nutrition Nutrition: Nutrition Category Date Time Status Renal Diet [DIET] Diets 01/30/18 Dinner Active Attending/Attestation - Attestation I have personally seen and examined this patient.: Yes I have fully participated in the care of the patient.: Yes I have reviewed all pertinent clinical information: Yes Notes (Text): 01/31/18 17:37 Patient is seen and examinedin the intensive care unit. 62 year old female with PMHx of A-fib on warfarin, severe PAD, ESRD/anuric (HD TTS; last dialysis Tuesday), hypothyroidism, Multiple Myeloma S/P chemotherapy and radiation therapy, left hallux infected ulcer with osteomyelitis with Serratia growing (01/16) and was put on Cefepime to complete 4-6 weeks ( discharged 01/20), she was admitted 01/25 with hemorrhagic shock and septic shock, given 3u PRBC, and 2U FFP, 2L bolus, s/p EGD 01/26 which showed ulcers, no active bleeding. Patient transferred to [facility] for further care and for dialysis. Currently the patient is still on Levophed. She is refusing dialysis and left BKA. Patient is DNR/DNI No aggressive intervention
--- NOTE | 2018-01-31 13:39 | PCM.PSYCH ---
Initial Psychiatric Evaluation - Initial Psychiatric Evaluation Type of Admission: Voluntary Legal Status: Capacity Chief Complaint (in patient's own words): I'm feeling very depressed.' History of Present Illness and Precipitating Events: This is a 62 years old AAF, who lives with her daughter, currently unemployed, with PMHx of A-fib on warfarin, severe PAD, ESRD/anuric (HD TTS; L AVF; last dialysis Today), hypothyroidism, Multiple Myeloma S/P chemotherapy and radiation therapy, left hallux infected ulcer with osteomyelitis with Serratia growing (01/16) and was put on Cefepime to complete 4-6 weeks (discharged 01/20), she was admitted 01/25 with hemorrhagic shock and septic shock, given 3u PRBC, and 2U FFP, 2L bolus, s/p EGD 01/26 which showed ulcers, no active bleeding. Patient transferred to [facility] for further care and for dialysis. Currently the patient is on Levophed 8mcg/min. Today patient was consulted. Patient reports of depressed mood and reports feelings of feelings of hopelessness or helplessness. She denies any past history of any psychiatric hospitalization or any follow-up with any psychiatrist. She reports stressors including multiple medical conditions, and dialysis 3 times a week. She reports having difficulty in sleeping and reports poor appetite. As per staff, patient remained isolated, withdrawn and depressed. She appears non-motivated, withdrawn and depressed. She reports having suicidal ideation at times but denies any plan. She denies any auditory or visual hallucinations or any persecutory delusions. Current Medications: Active Medications Generic Name Dose Route Start Last Admin Trade Name Freq PRN Reason Stop Dose Admin Ascorbic Acid 500 mg 01/27/18 10:00 01/31/18 10:44 Vitamin C 500 Mg Tab PO 500 mg DAILY KEYON Administration Epoetin Melvin 10,000 unit 01/31/18 10:00 Procrit IV TTS KEYON Hydromorphone HCl 0.25 mg 01/28/18 09:28 01/31/18 08:40 Dilaudid IVP 0.25 mg Q8H PRN Administration Pain, severe (8-10) Cefepime HCl 1 gm in 50 mls @ 100 mls/hr 01/27/18 10:00 01/30/18 12:59 Maxipime Iv 1 Gm Premix IVPB 100 mls/hr Q24H KEYON Administration Protocol Norepinephrine Bitartrate 8 mg 258 mls @ 23.22 mls/hr 01/26/18 17:46 06:59 / Sodium Chloride IV 20 mcg/min .Q11H7M PRN 38.7 mls/hr TITRATE PER MD ORDER Administration Protocol 12 MCG/MIN Gentamicin Sulfate 210 mg/ 105.25 mls @ 100 mls/hr 01/31/18 10:00 Sodium Chloride IVPB TTS KEYON Protocol Vancomycin/Sodium Chloride 1 gm in 200 mls @ 133.333 mls/hr 01/31/18 10:00 Vancomycin 1 Gm/Ns 200 Ml IVPB 02/05/18 10:01 TTS KEYON Protocol Levothyroxine Sodium 25 mcg 01/29/18 06:00 01/31/18 06:24 Synthroid PO 25 mcg 0600 KEYON Administration Midodrine 5 mg 01/26/18 18:00 01/31/18 10:49 Proamatine PO 5 mg TID KEYON Administration Pantoprazole Sodium 40 mg 01/30/18 19:15 01/31/18 08:41 Protonix Ec Tab PO 40 mg Q12H KEYON Administration Saccharomyces Boulardii 250 mg 01/30/18 22:00 01/31/18 10:51 Florastor PO 250 mg Q12 KEYON Administration Sucralfate 1 gm 01/26/18 18:00 01/31/18 10:44 Carafate Oral Susp PO Not Given TID KEYON Vitamin B Complex/Vit C/Folic Acid 1 tab 01/28/18 08:00 01/31/18 08:41 Nephro-Sarah PO 1 tab 0800 KEYON Administration Past Psychiatric History - Past Psychiatric History Previous Treatment History: None Pertinent Medical Hx (Current Medical&Sleep Prob, Allergies): Allergies Allergy/AdvReac Type Severity Reaction Status Date / Time IV CONTRAST Allergy Mild RASH Uncoded 01/27/18 14:29 Cinacalcet [Sensipar] 30 mg PO DAILY 12/07/17 Sevelamer Carbonate [Renvela] 4 tab PO ACTID 12/07/17 Cefepime 1gm in NS 100ml [Maxipime 1gm] 1 gm IVPB DAILY #35 bag 01/20/18 Digoxin 0.125 mg PO 1400 tab 01/20/18 Levothyroxine [Synthroid] 25 mcg PO 0600 tab 01/20/18 Amino Acid/Protein/Vit C/Zinc [Prosource Ronal Protein Liquid] 30 ml PO BID Midodrine [Proamatine] 5 mg PO TID 01/25/18 Silver Sulfadiazine 1% [Silvadene 1%] 1 appl TP DAILY 01/25/18 Vitamin B Complex/Vit C/Folic [Nephro-Sarah] 1 tab PO DAILY 01/25/18 traMADol [Ultram] 50 mg PO PRN PRN 01/25/18 Norepinephrine [Levophed] 8 mg IV .Q24H PRN amp 01/26/18 Verapamil [Verapamil Inj] 2.5 mg IVP Q4H PRN vial 01/26/18 Review of Systems - Review of Systems All systems: reviewed and no additional remarkable complaints except - Psychiatric Psychiatric: Anxiety, Depression, Hopelessness, Irritability, Suicidal Ideation Mental Status Examination - Personal Presentation Personal Presentation: Looks stated age - Affect Affect: Constricted, Depressed - Motor Activity Motor Activity: Calm - Reliability in Providing Information Reliability in Providing Information: Poor, due to alteration in thoughts, Poor , due to altered mood - Speech Speech: Disorganized - Mood Mood: Depressed, Anxious - Formal Thought Process Formal Thought Process: Loosening of associations - Obsessions/Compulsions Obsessions: No Compulsions: No - Cognitive Functions Orientation: Person, Place, Situation, Time Sensorium: Alert Attention/Concentration: Attentive Abstract Thinking: [place] Estimate of Intelligence: Below average Judgement: Imparied, as evidence by: Poor judgement - Risk Risk: Suicidal, Diminished functioning - Strength & Assets Inventory Strength & Assets Inventory: Family support DSM 5 DX - DSM 5 DSM 5 Diagnosis: Major depressive disorder 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
--- NOTE | 2018-01-31 15:23 | CP.PCM.PN ---
Subjective - Date & Time of Evaluation Date of Evaluation: 01/31/18 Time of Evaluation: 15:21 - Subjective Subjective: Surgery Pt seen and examined. No acute events. Pt on Pressors. Hypotensive. Pt still refusing surgery. Denies fevers, nausea. Pain controlled. Objective - Vital Signs/Intake and Output Vital Signs (last 24 hours): Temp Pulse Resp BP Pulse Ox 101 F H 89 19 101/68 94 L 01/31/18 12:00 01/31/18 15:15 01/31/18 15:15 01/31/18 15:15 01/31/18 15:15 Intake and Output: 01/31/18 01/31/18 06:59 18:59 Intake Total 1206.0 695.6 Output Total 0 0 Balance 1206.0 695.6 - Medications Medications: Current Medications Ascorbic Acid (Vitamin C 500 Mg Tab) 500 mg PO DAILY [facility] Last Admin: 01/31/18 10:44 Dose: 500 mg Bupropion HCl (Wellbutrin) 100 mg PO DAILY [facility] Epoetin Melvin (Procrit) 10,000 unit IV TTS [facility] Last Admin: 01/31/18 13:39 Dose: 10,000 unit Hydromorphone HCl (Dilaudid) 0.25 mg IVP Q8H PRN PRN Reason: Pain, severe (8-10) Last Admin: 01/31/18 08:40 Dose: 0.25 mg Hydroxyzine HCl (Atarax) 25 mg PO Q6 PRN PRN Reason: Anxiety Cefepime HCl (Maxipime Iv 1 Gm Premix) 1 gm in 50 mls @ 100 mls/hr IVPB Q24H KEYON PRN Reason: Protocol Last Admin: 01/31/18 10:00 Dose: 100 mls/hr Norepinephrine Bitartrate 8 mg (/ Sodium Chloride) 258 mls @ 23.22 mls/hr IV .Q11H7M PRN; Protocol; 12 MCG/MIN PRN Reason: TITRATE PER MD ORDER Last Admin: 01/31/18 15:15 Dose: 20 mcg/min, 38.7 mls/hr Gentamicin Sulfate 210 mg/ (Sodium Chloride) 105.25 mls @ 100 mls/hr IVPB TTS KEYON PRN Reason: Protocol Last Admin: 01/31/18 15:18 Dose: 100 mls/hr Vancomycin/Sodium Chloride (Vancomycin 1 Gm/Ns 200 Ml) 1 gm in 200 mls @ 133.333 mls/hr IVPB TTS [facility] PRN Reason: Protocol Stop: 02/05/18 10:01 Last Admin: 01/31/18 15:14 Dose: 133.333 mls/hr Levothyroxine Sodium (Synthroid) 25 mcg PO 0600 [facility] Last Admin: 01/31/18 06:24 Dose: 25 mcg Midodrine (Proamatine) 5 mg PO TID [facility] Last Admin: 01/31/18 14:17 Dose: 5 mg Mirtazapine (Remeron) 15 mg PO [facility] Pantoprazole Sodium (Protonix Ec Tab) 40 mg PO Q12H [facility] Last Admin: 01/31/18 08:41 Dose: 40 mg Saccharomyces Boulardii (Florastor) 250 mg PO Q12 [facility] Last Admin: 01/31/18 10:51 Dose: 250 mg Sucralfate (Carafate Oral Susp) 1 gm PO TID [facility] Last Admin: 01/31/18 14:14 Dose: Not Given Trazodone HCl (Desyrel) 50 mg PO [facility] Vitamin B Complex/Vit C/Folic Acid (Nephro-Sarah) 1 tab PO 0800 [facility] Last Admin: 01/31/18 08:41 Dose: 1 tab - Labs Labs: 01/31/18 06:24 01/31/18 06:14 - Constitutional Appears: No Acute Distress - Head Exam Head Exam: ATRAUMATIC, NORMAL INSPECTION, NORMOCEPHALIC - Eye Exam Eye Exam: EOMI, Normal appearance, PERRL Pupil Exam: NORMAL ACCOMODATION, PERRL - ENT Exam ENT Exam: Mucous Membranes Moist, Normal Exam - Neck Exam Neck Exam: Full ROM, Normal Inspection. absent: Lymphadenopathy - Respiratory Exam Respiratory Exam: Clear to Ausculation Bilateral, NORMAL BREATHING PATTERN - Cardiovascular Exam Cardiovascular Exam: REGULAR RHYTHM, +S1, +S2. absent: Murmur - GI/Abdominal Exam GI & Abdominal Exam: Soft, Normal Bowel Sounds. absent: Tenderness - Extremities Exam Extremities Exam: absent: Full ROM, Normal Inspection Additional comments: Foot dressing C/D/I. Heel boots - Back Exam Back Exam: NORMAL INSPECTION - Neurological Exam Neurological Exam: Alert, Awake, Oriented x3 - Psychiatric Exam Psychiatric exam: Depressed - Skin Skin Exam: Dry, Erythema, Intact. absent: Normal Color Assessment and Plan - Assessment and Plan (Free Text) Assessment: 62F with left foot wound, non healing Plan: Podiatry on board for wound care. Medical optimization May need BKA: Pt refusing surgery at this time. Medical management discussed with Dr. Everett
--- NOTE | 2018-01-31 19:30 | CP.PCM.PN ---
Subjective - Date & Time of Evaluation Date of Evaluation: 01/31/18 Time of Evaluation: 13:00 - Subjective Subjective: Patient seen on HD; poor appetite per nursing staff; made DNR/DNI today; per daughter, no mention of withholding HD; Objective - Vital Signs/Intake and Output Vital Signs (last 24 hours): Temp Pulse Resp BP Pulse Ox 97.6 F 83 9 L 102/66 80 L 01/31/18 16:00 01/31/18 19:21 01/31/18 19:21 01/31/18 19:21 01/31/18 18:22 Intake and Output: 01/31/18 02/01/18 18:59 06:59 Intake Total 1480.6 37.5 Output Total 0 0 Balance 1480.6 37.5 - Medications Medications: Current Medications Ascorbic Acid (Vitamin C 500 Mg Tab) 500 mg PO DAILY [facility] Last Admin: 01/31/18 10:44 Dose: 500 mg Bupropion HCl (Wellbutrin) 100 mg PO DAILY [facility] Last Admin: 01/31/18 15:40 Dose: 100 mg Epoetin Melvin (Procrit) 10,000 unit IV TTS [facility] Last Admin: 01/31/18 13:39 Dose: 10,000 unit Hydromorphone HCl (Dilaudid) 0.25 mg IVP Q8H PRN PRN Reason: Pain, severe (8-10) Last Admin: 01/31/18 17:31 Dose: 0.25 mg Hydroxyzine HCl (Atarax) 25 mg PO Q6 PRN PRN Reason: Anxiety Cefepime HCl (Maxipime Iv 1 Gm Premix) 1 gm in 50 mls @ 100 mls/hr IVPB Q24H KEYON PRN Reason: Protocol Last Admin: 01/31/18 10:00 Dose: 100 mls/hr Norepinephrine Bitartrate 8 mg (/ Sodium Chloride) 258 mls @ 23.22 mls/hr IV .Q11H7M PRN; Protocol; 12 MCG/MIN PRN Reason: TITRATE PER MD ORDER Last Admin: 01/31/18 15:15 Dose: 20 mcg/min, 38.7 mls/hr Gentamicin Sulfate 210 mg/ (Sodium Chloride) 105.25 mls @ 100 mls/hr IVPB TTS [facility] PRN Reason: Protocol Last Admin: 01/31/18 15:18 Dose: 100 mls/hr Vancomycin/Sodium Chloride (Vancomycin 1 Gm/Ns 200 Ml) 1 gm in 200 mls @ 133.333 mls/hr IVPB TTS [facility] PRN Reason: Protocol Stop: 02/05/18 10:01 Last Admin: 01/31/18 15:14 Dose: 133.333 mls/hr Levothyroxine Sodium (Synthroid) 25 mcg PO 0600 [facility] Last Admin: 01/31/18 06:24 Dose: 25 mcg Midodrine (Proamatine) 5 mg PO TID [facility] Last Admin: 01/31/18 17:32 Dose: 5 mg Mirtazapine (Remeron) 15 mg PO [facility] Pantoprazole Sodium (Protonix Ec Tab) 40 mg PO Q12H [facility] Last Admin: 01/31/18 18:52 Dose: 40 mg Saccharomyces Boulardii (Florastor) 250 mg PO Q12 [facility] Last Admin: 01/31/18 10:51 Dose: 250 mg Sucralfate (Carafate Oral Susp) 1 gm PO TID [facility] Last Admin: 01/31/18 17:16 Dose: Not Given Trazodone HCl (Desyrel) 50 mg PO [facility] Vitamin B Complex/Vit C/Folic Acid (Nephro-Sarah) 1 tab PO 0800 [facility] Last Admin: 01/31/18 08:41 Dose: 1 tab - Labs Labs: 01/31/18 06:24 01/31/18 06:14 - Constitutional Appears: Non-toxic, No Acute Distress, Chronically Ill - Respiratory Exam Additional comments: mild rales, improved; - Cardiovascular Exam Cardiovascular Exam: Irregular Rhythm, +S1, +S2. absent: Gallop - Extremities Exam Additional comments: mildly edematous; - Neurological Exam Neurological Exam: Alert, Awake - Psychiatric Exam Psychiatric exam: absent: Agitated Assessment and Plan (1) ESRD on hemodialysis Assessment & Plan: Stable electrolyte status; trying to keep net even fluid status as much as possible; still with what appears to be pulm edema on CXR; UF goal of 1.5L today on HD; next HD for but may need extra UF session if respiratory status worsens; Status: Chronic (2) Shock Assessment & Plan: Septic shock in the setting of L foot infection; relatively stable pressor requirement (levophed 20 mcg); on cefepime and now on vanco and genta, should continue to re-dose the latter two after HD; Status: Acute (3) Acute hypoxemic respiratory failure Assessment & Plan: Relatively stable FIO2 requirement but trying to keep net even fluid balances given CXR findings; Status: Acute (4) Chronic kidney disease-mineral and bone disorder Assessment & Plan: Ca stable; continue to hold both calcitriol and sensipar; no need for phos binders until she starts eating well; Status: Chronic (5) GI bleed Status: Acute (6) Anemia Assessment & Plan: Due to ESRD but also recent GI bleed; s/p another prbc unit yesterday; keeping on EPO 10,000 u qHD; Status: Acute
[2018-01-31 20:23] VITALS: TEMP 98
[2018-01-31 21:44] VITALS: O2SAT 93
[2018-01-31 23:26] VITALS: BP 91/59; PULSE 89; RESP 12
--- NOTE | 2018-02-01 00:48 | CP.PCM.PRO ---
Pronouncement of Note - Clinical Findings Physical Exam: No Response Verbal/Painful Stimuli, Absent Peripheral Pulses{ Carotid & Femoral}, Absent Heart & Breath Sounds, No Pupillary Light Reflex, No Corneal Reflex, Pupils Fixed & Dilated, Absence of Vital Signs - Pronouncement Time Time of Pronouncement of : 12:29 (am) - Notifications Pronouncement Notifications: Family Notified (Daughter Leyla Syed), Atending Notified Designer Writer Notified: No - Autopsy Autopsy Requested: No [place] Additional Comments: Patient was DNR/DNI, HR slowed down in 30's then asystole. Family informed by me. Attending being informed by nursing.
--- NOTE | 2018-02-01 04:41 | PN ---
DATE: 01/31/2018 SUBJECTIVE: The patient is a 62-year-old female. The patient was seen and examined at bedside on 01/31/2018, looking comfortable. No nausea, vomiting, or diarrhea. No hematuria or hematochezia. No swelling of the legs. No chest pain. No palpitation. No headache or dizziness. The patient got dialysis. Appetite is poor as per nursing staff. Daughter is sitting on the bedside. According to her, mother ate yesterday better. The patient was made DNR and DNI as per daughter but no mention of comfort care. No fever. No chills. PHYSICAL EXAMINATION: VITAL SIGNS: Temperature 97.6, pulse 83, respiratory rate 20, blood pressure 102/66, pulse oximetry 80. HEENT: Head is normocephalic, atraumatic. Eyes, PERRLA. Extraocular muscles intact. Conjunctivae clear. Nose patent. Mucous membranes moist. NECK: Supple. No carotid bruits. No JVD or thyromegaly. CHEST: Bilaterally symmetrical. HEART: S1 and S2 positive. LUNGS: Clear to auscultation. ABDOMEN: Soft. Bowel sounds present. No organomegaly. EXTREMITIES: No edema. No cyanosis. NEUROLOGIC: The patient is awake, alert. Follows simple commands, looking more alert. MEDICATIONS: Ascorbic acid, Wellbutrin, Procrit, Dilaudid, Atarax, cefepime, NS, gentamicin, vancomycin. LABORATORY DATA: White blood cells 19, hemoglobin 8.8, hematocrit 27.1, and platelets 109. Sodium 148, potassium 3.9, BUN 47, creatinine 3, glucose 71. ASSESSMENT AND PLAN: Ms. Caryn Card is a 62-year-old lady with leukocytosis, anemia, thrombocytopenia, renal insufficiency. Has end-stage renal disease, on hemodialysis. Stable electrolyte status. Trying to keep dry status as much as possible, still with what appeared to be pulmonary edema on chest x-rays. Septic shock in the setting of left foot infection, relatively stable. Pressor requirements, Levophed 20 mcg. On cefepime and now on vancomycin and gentamicin. Continue re-dosing the after hemodialysis. Acute hypoxemic respiratory failure, chronic kidney disease, mineral and bone disorders, gastrointestinal bleeding, anemia. Gastrointestinal and deep venous thrombosis prophylaxis. Repeat labs. Discussion done with the patient's daughter and nursing staff. Repeat labs. We will follow up. Vanda Marsh MD MTDSara
--- NOTE | 2018-02-09 09:33 | DS ---
The patient was admitted on 01/26/2018, on 02/01/2018. Ms. Caryn Card is a 62-year-old female, was admitted to the [facility] on 01/26/2018. Actually, she was transferred from [facility], on 02/01/2018. CHIEF COMPLAINT: Foot pain, low blood pressure, coagulopathy. HISTORY OF PRESENT ILLNESS: Ms. Kyaw Rubin is a 62-year-old female with past medical history of atrial fibrillation, on Coumadin, severe peripheral arterial disease, hypothyroidism, multiple myeloma, status post chemotherapy, recent left hallux osteomyelitis, end-stage renal disease, on hemodialysis, came back to the [facility] with found her to be in shock. The patient stabilized and transferred to [facility] for acute dialysis as needed. Now, the patient was in the unit. The patient was getting rehab in [facility] and getting antibiotics for osteomyelitis. The patient was hypotensive in [facility], was placed on midodrine. The patient was not eating well. The patient is not a good historian, was admitted in the ICU of [facility], got 3 units of packed RBC's, 3 units of fresh frozen plasma, 2 liters of NS bolus, and was put on Levophed drip and actually running at 12 mcg to stabilize her. The patient also had urgent EGD done which shows nonbleeding esophageal and gastric ulcers, transferred to [facility], was admitted in [facility], did lower extremity ultrasound, chest x-ray. Seen by Dr. Pino Fernandes, vascular surgeon; color receiver, Dr. Osman Meza. Dr. Bharathi Mcgee of Podiatry saw the patient. Dr. Ozzy Randolph, color receiver, saw the patient. Dr Adilson Mirza was the assistant project manager. The patient was depressed, consult called with Dr. Kalee Linton. Actually, she expressed wishes of dying. Psychiatrist was called, the patient was put on one-to-one. Finally, the patient was made DNR/DNI by the daughter, hospice, and on 02/01/[address] Davian Laureano pronounced the patient. Family was aware of the patient's prognosis. I spoke to the daughter at bed side and answered all questions. PAST MEDICAL HISTORY: Renal insufficiency, on hemodialysis; osteomyelitis; diabetes; hypertension. SOCIAL HISTORY: No alcohol, no substance abuse. No drugs. FAMILY HISTORY: Father and mother noncontributory. HOSPITAL COURSE: As above. ASSESSMENT AND PLAN: Ms. Caryn Card has end-stage renal disease, on hemodialysis, got hypotension, on Levophed, admitted to the hospital with acute decompensation congestive heart failure, cardiogenic shock septic shock, acute hypoxic respiratory failure, severe peripheral vascular disease, left hallux infected ulcers with osteomyelitis with Serratia growing and was put on the cefepime to complete for 6 weeks of antibiotics. Gastrointestinal and deep venous thrombosis prophylaxis provided. Finally, the patient on 02/01/2018, pronounced by Dr. Davian Laureano, substance abuse specialist. Family is aware. certificate done. Vanda Marsh MD MTDD
== END 2018-02-01 03:12 | DRG 871 ==
LOC: C.9I 16:44
PROVIDERS: ADMIT Internal Medicine; ATTEND Internal Medicine
PROC: 5A1D70Z Performance of Urinary Filtration, Intermittent, Less than 6 Hours Per Day (ICD-10-PCS; principal; 2018-01-26)
PROC: 5A1D70Z Performance of Urinary Filtration, Intermittent, Less than 6 Hours Per Day (ICD-10-PCS; 2018-01-27)
PROC: 5A1D70Z Performance of Urinary Filtration, Intermittent, Less than 6 Hours Per Day (ICD-10-PCS; 2018-01-28)
PROC: 5A1D70Z Performance of Urinary Filtration, Intermittent, Less than 6 Hours Per Day (ICD-10-PCS; 2018-01-30)
PROC: 5A1D70Z Performance of Urinary Filtration, Intermittent, Less than 6 Hours Per Day (ICD-10-PCS; 2018-01-31)
DX: A41.9 Sepsis, unspecified organism (principal); I50.23 Acute on chronic systolic (congestive) heart failure; J96.01 Acute respiratory failure with hypoxia; N18.6 End stage renal disease; R65.21 Severe sepsis with septic shock; F32.2 Major depressive disorder, single episode, severe without psychotic features; K22.10 Ulcer of esophagus without bleeding; I13.2 Hypertensive heart and chronic kidney disease with heart failure and with stage 5 chronic kidney disease, or end stage renal disease; N25.81 Secondary hyperparathyroidism of renal origin; R45.851 Suicidal ideations; D62 Acute posthemorrhagic anemia; D69.6 Thrombocytopenia, unspecified; E03.9 Hypothyroidism, unspecified; G47.30 Sleep apnea, unspecified; I48.91 Unspecified atrial fibrillation; I27.20 Pulmonary hypertension, unspecified; I25.10 Atherosclerotic heart disease of native coronary artery without angina pectoris; I73.9 Peripheral vascular disease, unspecified; Z66 Do not resuscitate; Z89.512 Acquired absence of left leg below knee; Z91.15 Patient's noncompliance with renal dialysis; Z92.21 Personal history of antineoplastic chemotherapy; Z92.3 Personal history of irradiation; Z99.2 Dependence on renal dialysis; M84.475S Pathological fracture, left foot, sequela; L89.159 Pressure ulcer of sacral region, unspecified stage; Z85.79 Personal history of other malignant neoplasms of lymphoid, hematopoietic and related tissues; E11.22 Type 2 diabetes mellitus with diabetic chronic kidney disease